=== PATIENT | male | born 1950 | race Caucasian/White ===

== ENCOUNTER → 2016-12-13 | Outpatient (CLI) | payer MEDICARE, BC, OTHER ==
[2016-12-13 12:51] LABS: HEMATOCRIT 36.5 % (37.9-51.0); HEMOGLOBIN 12.1 g/dL (13.5-17.0); HGB HCT DIFFERENCE -0.2; MEAN CORPUSCULAR HEMOGLOBIN 33.8 pg (27.0-33.4); MEAN CORPUSCULAR HGB CONC 33.3 g/dL (32.0-36.0); MEAN CORPUSCULAR VOLUME 102 fl (80-97); RED CELL DISTRIBUTION WIDTH 14.2 % (11.5-14.0); WHITE BLOOD COUNT 7.4 10^3/uL (4.0-10.5)
[2016-12-13 12:59] LABS: APPEARANCE,URINE CLEAR; BILIRUBIN,URINE NEGATIVE (NEGATIVE); GLUCOSE, URINE NEGATIVE (NEGATIVE); KETONES,URINE NEGATIVE (NEGATIVE); LEUKOCYTE ESTERASE,URINE NEGATIVE (NEGATIVE); NITRITE,URINE NEGATIVE (NEGATIVE); PROTEIN,URINE 100 mg/dL (NEGATIVE); URINE SPECIFIC GRAVITY 1.008; UROBILINOGEN,URINE NEGATIVE mg/dL (<2.0)
[2016-12-13 13:08] LABS: ANION GAP 13 (5-19); BLOOD UREA NITROGEN 52 mg/dL (7-20); CALCIUM 7.7 mg/dL (8.4-10.2); CARBON DIOXIDE 22 mmol/L (22-30); CHLORIDE 104 mmol/L (98-107); GLUCOSE 106 mg/dL (75-110); POTASSIUM 4.5 mmol/L (3.6-5.0); SODIUM 138.9 mmol/L (137-145)
== END ==
LOC: OD 11:24
PROVIDERS: ATTEND Internal Medicine Nephrology
DX: E11.22 Type 2 diabetes mellitus with diabetic chronic kidney disease (principal); I12.9 Hypertensive chronic kidney disease with stage 1 through stage 4 chronic kidney disease, or unspecified chronic kidney disease; N18.4 Chronic kidney disease, stage 4 (severe); E87.5 Hyperkalemia; R80.9 Proteinuria, unspecified
CPT/HCPCS: 36415; 80048; 81001; 85027

== ENCOUNTER → 2017-04-02 | Outpatient (CLI) | payer MEDICARE, BC, OTHER ==
[2017-04-02 11:08] LABS: ABSOLUTE BASOPHILS # (AUTO) 0.1 10^3/uL (0.0-0.2); ABSOLUTE EOSINOPHILS # (AUTO) 0.3 10^3/uL (0.0-0.6); ABSOLUTE LYMPHOCYTES (AUTO) 1.1 10^3/uL (0.5-4.7); ABSOLUTE MONOCYTES (AUTO) 0.8 10^3/uL (0.1-1.4); ABSOLUTE NEUT (AUTO) 4.4 10^3/uL (1.7-8.2); BASOPHILS % (AUTO) 0.8 % (0-2); EOSINOPHILS % (AUTO) 4.6 % (0-6); HEMATOCRIT 37.6 % (37.9-51.0); HGB HCT DIFFERENCE 1.4; LYMPHOCYTES % (AUTO) 16.3 % (13-45); MEAN CORPUSCULAR HEMOGLOBIN 35.1 pg (27.0-33.4); MEAN CORPUSCULAR HGB CONC 34.5 g/dL (32.0-36.0); MEAN CORPUSCULAR VOLUME 102 fl (80-97); MONOCYTES % (AUTO) 11.4 % (3-13); RED CELL DISTRIBUTION WIDTH 14.4 % (11.5-14.0); SEGMENTED NEUTROPHILS % (AUTO) 66.9 % (42-78); WHITE BLOOD COUNT 6.6 10^3/uL (4.0-10.5)
[2017-04-02 11:28] LABS: ALANINE AMINOTRANSFERASE 31 U/L (21-72); ALBUMIN 3.7 g/dL (3.5-5.0); ALKALINE PHOSPHATASE 53 U/L (38-126); ANION GAP 9 (5-19); ASPARTATE AMINO TRANSFERASE 21 U/L (17-59); BILIRUBIN,DIRECT 0.4 mg/dL (0.0-0.4); BILIRUBIN,TOTAL 0.6 mg/dL (0.2-1.3); BLOOD UREA NITROGEN 61 mg/dL (7-20); CALCIUM 8.4 mg/dL (8.4-10.2); CARBON DIOXIDE 24 mmol/L (22-30); CHLORIDE 106 mmol/L (98-107); CHOLESTEROL 171.96 mg/dL (0-200); CREATININE RESULT 4.27 mg/dL (0.52-1.25); Direct HDL 54 mg/dL (>40); GLUCOSE 128 mg/dL (75-110); MAGNESIUM 2.4 mg/dL (1.6-2.3); POTASSIUM 5.2 mmol/L (3.6-5.0); SODIUM 139.1 mmol/L (137-145); TOTAL PROTEIN 6.6 g/dL (6.3-8.2); TRIGLYCERIDES 116 mg/dL (<150)
[2017-04-02 11:38] LABS: DIRECT LDL 85 mg/dL (<100)
== END ==
LOC: OD 10:12
PROVIDERS: ATTEND Internal Medicine
DX: E11.9 Type 2 diabetes mellitus without complications (principal); I12.9 Hypertensive chronic kidney disease with stage 1 through stage 4 chronic kidney disease, or unspecified chronic kidney disease; N18.4 Chronic kidney disease, stage 4 (severe); J44.9 Chronic obstructive pulmonary disease, unspecified; E78.5 Hyperlipidemia, unspecified
CPT/HCPCS: 36415; 80053; 80061; 82043; 83036; 83735; 84443; 85025

== ENCOUNTER → 2017-05-28 | Outpatient (CLI) | payer MEDICARE, BC, OTHER ==
[2017-05-28 11:19] LABS: HEMATOCRIT 37.6 % (37.9-51.0); HEMOGLOBIN 12.7 g/dL (13.5-17.0); HGB HCT DIFFERENCE 0.5; MEAN CORPUSCULAR HEMOGLOBIN 34.2 pg (27.0-33.4); MEAN CORPUSCULAR HGB CONC 33.9 g/dL (32.0-36.0); MEAN CORPUSCULAR VOLUME 101 fl (80-97); RED BLOOD COUNT 3.72 10^6/uL (4.35-5.55); RED CELL DISTRIBUTION WIDTH 13.3 % (11.5-14.0); WHITE BLOOD COUNT 6.9 10^3/uL (4.0-10.5)
[2017-05-28 11:26] LABS: APPEARANCE,URINE CLEAR; BILIRUBIN,URINE NEGATIVE (NEGATIVE); GLUCOSE, URINE 50 mg/dL (NEGATIVE); KETONES,URINE NEGATIVE (NEGATIVE); LEUKOCYTE ESTERASE,URINE NEGATIVE (NEGATIVE); NITRITE,URINE NEGATIVE (NEGATIVE); PROTEIN,URINE >=500 mg/dL (NEGATIVE); URINE SPECIFIC GRAVITY 1.008; UROBILINOGEN,URINE NEGATIVE mg/dL (<2.0)
[2017-05-28 11:41] LABS: ALBUMIN 3.5 g/dL (3.5-5.0); ANION GAP 11 (5-19); BLOOD UREA NITROGEN 44 mg/dL (7-20); CALCIUM 8.4 mg/dL (8.4-10.2); CARBON DIOXIDE 21 mmol/L (22-30); CHLORIDE 107 mmol/L (98-107); CREATININE RESULT 3.96 mg/dL (0.52-1.25); GLUCOSE 94 mg/dL (75-110); PHOSPHORUS 5.1 mg/dL (2.5-4.5); POTASSIUM 4.5 mmol/L (3.6-5.0); SODIUM 139.3 mmol/L (137-145)
[2017-05-28 12:12] LABS: URINE CREATININE 71.3 mg/dL (22-328)
[2017-05-28 12:35] LABS: URINE PROTEIN 501.8 mg/dL (<12)
== END ==
LOC: OD 10:26
PROVIDERS: ATTEND Internal Medicine Nephrology
DX: I12.9 Hypertensive chronic kidney disease with stage 1 through stage 4 chronic kidney disease, or unspecified chronic kidney disease (principal); N18.4 Chronic kidney disease, stage 4 (severe); E11.9 Type 2 diabetes mellitus without complications; E87.5 Hyperkalemia; R80.9 Proteinuria, unspecified
CPT/HCPCS: 36415; 80048; 81001; 82040; 82570; 83735; 83970; 84100; 84156; 85027

== ENCOUNTER → 2017-07-25 | Outpatient (CLI) | payer MEDICARE, BC, OTHER ==
[2017-07-26 11:35] LABS: ANION GAP 15 (5-19); BLOOD UREA NITROGEN 54 mg/dL (7-20); CALCIUM 8.1 mg/dL (8.4-10.2); CARBON DIOXIDE 21 mmol/L (22-30); CHLORIDE 104 mmol/L (98-107); CREATININE RESULT 4.33 mg/dL (0.52-1.25); GLUCOSE 114 mg/dL (75-110); POTASSIUM 5.4 mmol/L (3.6-5.0); SODIUM 139.5 mmol/L (137-145)
== END ==
LOC: OD 10:21
PROVIDERS: ATTEND Internal Medicine Nephrology
DX: N18.4 Chronic kidney disease, stage 4 (severe) (principal); E78.5 Hyperlipidemia, unspecified; R80.9 Proteinuria, unspecified
CPT/HCPCS: 36415; 80048

== ENCOUNTER → 2017-10-30 | Outpatient (CLI) | payer MEDICARE, BC, OTHER ==
[2017-10-30 11:01] LABS: HEMATOCRIT 35.2 % (37.9-51.0); HEMOGLOBIN 12.1 g/dL (13.5-17.0); HGB HCT DIFFERENCE 1.1; MEAN CORPUSCULAR HEMOGLOBIN 34.7 pg (27.0-33.4); MEAN CORPUSCULAR HGB CONC 34.3 g/dL (32.0-36.0); MEAN CORPUSCULAR VOLUME 101 fl (80-97); RED BLOOD COUNT 3.48 10^6/uL (4.35-5.55); RED CELL DISTRIBUTION WIDTH 13.7 % (11.5-14.0); WHITE BLOOD COUNT 6.5 10^3/uL (4.0-10.5)
[2017-10-30 11:20] LABS: ANION GAP 15 (5-19); BLOOD UREA NITROGEN 82 mg/dL (7-20); CALCIUM 9.2 mg/dL (8.4-10.2); CARBON DIOXIDE 20 mmol/L (22-30); CHLORIDE 105 mmol/L (98-107); CREATININE RESULT 5.54 mg/dL (0.52-1.25); GLUCOSE 96 mg/dL (75-110); POTASSIUM 4.8 mmol/L (3.6-5.0); SODIUM 139.5 mmol/L (137-145)
== END ==
LOC: OD 09:59
PROVIDERS: ATTEND Internal Medicine Nephrology
DX: E87.5 Hyperkalemia (principal); N18.4 Chronic kidney disease, stage 4 (severe); R80.9 Proteinuria, unspecified
CPT/HCPCS: 36415; 80048; 85027

== ENCOUNTER → 2017-12-01 | Outpatient (CLI) | payer MEDICARE, BC, OTHER ==
[2017-12-01 12:03] LABS: ABSOLUTE EOSINOPHILS # (AUTO) 0.2 10^3/uL (0.0-0.6); ABSOLUTE LYMPHOCYTES (AUTO) 0.6 10^3/uL (0.5-4.7); ABSOLUTE MONOCYTES (AUTO) 0.8 10^3/uL (0.1-1.4); ABSOLUTE NEUT (AUTO) 3.2 10^3/uL (1.7-8.2); BASOPHILS % (AUTO) 0.9 % (0-2); EOSINOPHILS % (AUTO) 3.6 % (0-6); HEMATOCRIT 34.6 % (37.9-51.0); HEMOGLOBIN 11.8 g/dL (13.5-17.0); LYMPHOCYTES % (AUTO) 13.2 % (13-45); MEAN CORPUSCULAR HEMOGLOBIN 34.1 pg (27.0-33.4); MEAN CORPUSCULAR HGB CONC 34.2 g/dL (32.0-36.0); MEAN CORPUSCULAR VOLUME 100 fl (80-97); PLATELET COUNT 189 10^3/uL (150-450); RED BLOOD COUNT 3.47 10^6/uL (4.35-5.55); RED CELL DISTRIBUTION WIDTH 13.7 % (11.5-14.0); SEGMENTED NEUTROPHILS % (AUTO) 66.3 % (42-78); TOTAL CELLS COUNTED % (AUTO) 100 %; WHITE BLOOD COUNT 4.8 10^3/uL (4.0-10.5)
[2017-12-01 12:08] LABS: APPEARANCE,URINE CLEAR; BILIRUBIN,URINE NEGATIVE (NEGATIVE); COLOR,URINE STRAW; GLUCOSE, URINE 50 mg/dL (NEGATIVE); KETONES,URINE NEGATIVE (NEGATIVE); LEUKOCYTE ESTERASE,URINE NEGATIVE (NEGATIVE); NITRITE,URINE NEGATIVE (NEGATIVE); PROTEIN,URINE >=500 mg/dL (NEGATIVE); URINE SPECIFIC GRAVITY 1.007; UROBILINOGEN,URINE NEGATIVE mg/dL (<2.0)
[2017-12-01 12:22] LABS: ALANINE AMINOTRANSFERASE 170 U/L (21-72); ALBUMIN 4.1 g/dL (3.5-5.0); ALKALINE PHOSPHATASE 84 U/L (38-126); ANION GAP 16 (5-19); ASPARTATE AMINO TRANSFERASE 142 U/L (17-59); BILIRUBIN,DIRECT 0.3 mg/dL (0.0-0.4); BILIRUBIN,TOTAL 0.5 mg/dL (0.2-1.3); BLOOD UREA NITROGEN 82 mg/dL (7-20); CALCIUM 8.7 mg/dL (8.4-10.2); CARBON DIOXIDE 20 mmol/L (22-30); CHLORIDE 103 mmol/L (98-107); GLUCOSE 94 mg/dL (75-110); PHOSPHORUS 6.3 mg/dL (2.5-4.5); POTASSIUM 4.6 mmol/L (3.6-5.0); SODIUM 138.7 mmol/L (137-145); TOTAL PROTEIN 6.9 g/dL (6.3-8.2)
== END ==
LOC: OD 11:24
PROVIDERS: ATTEND Internal Medicine Nephrology
DX: N18.4 Chronic kidney disease, stage 4 (severe) (principal); E87.5 Hyperkalemia; R80.9 Proteinuria, unspecified; E11.9 Type 2 diabetes mellitus without complications
CPT/HCPCS: 36415; 80053; 81001; 83970; 84100; 85025

== ENCOUNTER → 2017-12-29 | Outpatient (CLI) | payer MEDICARE, BC, OTHER ==
[2017-12-29 10:48] LABS: HEMOGLOBIN 11.4 g/dL (13.5-17.0); MEAN CORPUSCULAR HEMOGLOBIN 34.5 pg (27.0-33.4); MEAN CORPUSCULAR HGB CONC 34.5 g/dL (32.0-36.0); MEAN CORPUSCULAR VOLUME 100 fl (80-97); PLATELET COUNT 179 10^3/uL (150-450); RED CELL DISTRIBUTION WIDTH 13.8 % (11.5-14.0); WHITE BLOOD COUNT 5.9 10^3/uL (4.0-10.5)
[2017-12-29 10:55] LABS: APPEARANCE,URINE CLEAR; BILIRUBIN,URINE NEGATIVE (NEGATIVE); COLOR,URINE STRAW; GLUCOSE, URINE 50 mg/dL (NEGATIVE); KETONES,URINE NEGATIVE (NEGATIVE); LEUKOCYTE ESTERASE,URINE NEGATIVE (NEGATIVE); NITRITE,URINE NEGATIVE (NEGATIVE); PROTEIN,URINE 100 mg/dL (NEGATIVE); URINE SPECIFIC GRAVITY 1.009; UROBILINOGEN,URINE NEGATIVE mg/dL (<2.0)
[2017-12-29 11:13] LABS: ANION GAP 12 (5-19); BLOOD UREA NITROGEN 95 mg/dL (7-20); CALCIUM 9.5 mg/dL (8.4-10.2); CARBON DIOXIDE 20 mmol/L (22-30); CHLORIDE 103 mmol/L (98-107); GLUCOSE 105 mg/dL (75-110); PHOSPHORUS 5.4 mg/dL (2.5-4.5); POTASSIUM 4.7 mmol/L (3.6-5.0); SODIUM 134.8 mmol/L (137-145)
[2017-12-29 11:33] LABS: URINE CREATININE 62.4 mg/dL (22-328)
[2017-12-29 11:43] LABS: UR PRO/CREAT RATIO RESULT 3.9 mg/mg (0.0-0.2); URINE PROTEIN 242.8 mg/dL (<12)
== END ==
LOC: OD 10:12
PROVIDERS: ATTEND Physician Assistant Medical
DX: I12.0 Hypertensive chronic kidney disease with stage 5 chronic kidney disease or end stage renal disease (principal); N18.5 Chronic kidney disease, stage 5; E87.5 Hyperkalemia; R80.9 Proteinuria, unspecified; E11.9 Type 2 diabetes mellitus without complications
CPT/HCPCS: 36415; 80048; 81001; 82570; 83970; 84100; 84156; 85027

== ENCOUNTER → 2018-02-12 | Outpatient (CLI) | payer MEDICARE, BC, OTHER ==
[2018-02-12 12:05] LABS: APPEARANCE,URINE CLEAR; BILIRUBIN,URINE NEGATIVE (NEGATIVE); COLOR,URINE YELLOW; GLUCOSE, URINE 50 mg/dL (NEGATIVE); KETONES,URINE TRACE mg/dL (NEGATIVE); LEUKOCYTE ESTERASE,URINE NEGATIVE (NEGATIVE); NITRITE,URINE NEGATIVE (NEGATIVE); PROTEIN,URINE >=500 mg/dL (NEGATIVE); UROBILINOGEN,URINE NEGATIVE mg/dL (<2.0)
[2018-02-12 12:09] LABS: HEMATOCRIT 35.4 % (37.9-51.0); MEAN CORPUSCULAR HEMOGLOBIN 34.3 pg (27.0-33.4); MEAN CORPUSCULAR HGB CONC 33.9 g/dL (32.0-36.0); MEAN CORPUSCULAR VOLUME 101 fl (80-97); PLATELET COUNT 176 10^3/uL (150-450); RED CELL DISTRIBUTION WIDTH 14.2 % (11.5-14.0); WHITE BLOOD COUNT 6.4 10^3/uL (4.0-10.5)
[2018-02-12 12:22] LABS: ANION GAP 12 (5-19); BLOOD UREA NITROGEN 58 mg/dL (7-20); CALCIUM 9.1 mg/dL (8.4-10.2); CARBON DIOXIDE 21 mmol/L (22-30); CHLORIDE 106 mmol/L (98-107); GLUCOSE 75 mg/dL (75-110); POTASSIUM 4.6 mmol/L (3.6-5.0); SODIUM 139.2 mmol/L (137-145)
[2018-02-12 12:30] LABS: URINE CREATININE 77.6 mg/dL (22-328)
[2018-02-12 12:48] LABS: UR PRO/CREAT RATIO RESULT 6.4 mg/mg (0.0-0.2); URINE PROTEIN 497.7 mg/dL (<12)
== END ==
LOC: OD 11:02
PROVIDERS: ATTEND Physician Assistant Medical
DX: I12.0 Hypertensive chronic kidney disease with stage 5 chronic kidney disease or end stage renal disease (principal); N18.5 Chronic kidney disease, stage 5; E87.5 Hyperkalemia; E11.9 Type 2 diabetes mellitus without complications
CPT/HCPCS: 36415; 80048; 81001; 82570; 84156; 85027

== ENCOUNTER 2018-03-10 18:24 | Inpatient (IN) | payer MEDICARE, BC, OTHER ==
--- NOTE | 2018-03-10 18:53 | RADIOLOGY REPORT (SQ) ---
EXAM DESCRIPTION: CT HEAD WITHOUT COMPLETED DATE/TIME: 03/10/2018 6:36 pm REASON FOR STUDY: t2 stroke alert COMPARISON: None. TECHNIQUE: Axial images acquired through the brain without intravenous contrast. Images reviewed wi th bone, brain and subdural windows. Additional sagittal and coronal reconstructions were generated. Images stored on PACS. All CT scanners at this facility use dose modulation, iterative reconstruction, and/or weight based d osing when appropriate to reduce radiation dose to as low as reasonably achievable (ALARA). [facility]: Dose Right [facility]: CareDose [facility]: Dose Right [facility]: Teradose 4D [facility]: Touch Bionics RADIATION DOSE: mGy. LIMITATIONS: None. FINDINGS: VENTRICLES: Prominent. CEREBRUM: No masses. No hemorrhage. No midline shift. Areas of low density in the white matter mos t likely due to chronic micro-vascular ischemic change. No evidence for acute infarction. CEREBELLUM: No masses. No hemorrhage. No alteration of density. No evidence for acute infarction. EXTRAAXIAL SPACES: Age-related involutional change. No fluid collections. No masses. ORBITS AND GLOBE: There is a metallic density on the anterior surface of the right eye (axial image 1 3). No intra- or extraconal masses. Normal contour of globe without masses. CALVARIUM: No fracture. PARANASAL SINUSES: No fluid or mucosal thickening. SOFT TISSUES: No mass or hematoma. OTHER: No other significant finding. IMPRESSION: 1. CHRONIC CHANGES OF ATROPHY AND MICROVASCULAR ISCHEMIA. NO ACUTE PROCESS. 2. METALLIC DENSITY ON THE ANTERIOR SURFACE OF THE RIGHT EYE. RECOMMEND CLINICAL CORRELATION. IF MR I SCAN IS CONSIDERED, THEN THIS FINDING WILL NEED TO BE ADDRESSED A METALLIC BODY ON THE EYE WOULD BE A CONTRAINDICATION TO MRI SCANNING. EVIDENCE OF ACUTE STROKE: NO. COMMENT: Pertinent positive or negative findings of the imaging study reported as a CRITICAL EXAM lc florencio CROCKER at18:44 on 03/10/2018. Category of Critical Exam: Stroke protocol. TECHNICAL DOCUMENTATION: JOB ID: [id number] Quality ID # [id number]: Final reports with documentation of one or more dose reduction techniques (e.g., Au tomated exposure control, adjustment of the mA and/or kV according to patient size, use of iterative reconstruction technique) 2010 [employer]- All Rights Reserved Reading location - IP/workstation name: [email or web address]
--- NOTE | 2018-03-10 19:00 | RADIOLOGY REPORT (SQ) ---
EXAM DESCRIPTION: CHEST SINGLE VIEW COMPLETED DATE/TIME: 03/10/2018 6:40 pm REASON FOR STUDY: t2 stroke alert COMPARISON: 07/20/2014 and 06/04/2010. NUMBER OF VIEWS: One view. TECHNIQUE: Single frontal radiographic view of the chest acquired. LIMITATIONS: None. FINDINGS: LUNGS AND PLEURA: No opacities, masses or pneumothorax. No pleural effusion. Stable pleu ral thickening in the lateral right and left chest. This could be due to prominent pleural fat. MEDIASTINUM AND HILAR STRUCTURES: No masses. Contour normal. HEART AND VASCULAR STRUCTURES: Heart enlarged without failure. Normal vasculature. BONES: No acute findings. HARDWARE: None in the chest. OTHER: No other significant finding. IMPRESSION: HEART ENLARGED WITHOUT FAILURE. NO OTHER SIGNIFICANT RADIOGRAPHIC FINDING IN THE CHEST. TECHNICAL DOCUMENTATION: JOB ID: [id number] [employer]- All Rights Reserved Reading location - IP/workstation name: [email or web address]
[2018-03-10 19:05] LABS: ABSOLUTE BASOPHILS # (AUTO) 0.1 10^3/uL (0.0-0.2); ABSOLUTE EOSINOPHILS # (AUTO) 0.4 10^3/uL (0.0-0.6); ABSOLUTE LYMPHOCYTES (AUTO) 1.8 10^3/uL (0.5-4.7); ABSOLUTE MONOCYTES (AUTO) 1.2 10^3/uL (0.1-1.4); ABSOLUTE NEUT (AUTO) 5.2 10^3/uL (1.7-8.2); BASOPHILS % (AUTO) 1.4 % (0-2); EOSINOPHILS % (AUTO) 4.5 % (0-6); HEMATOCRIT 35.4 % (37.9-51.0); HEMOGLOBIN 12.2 g/dL (13.5-17.0); INTERNATIONAL RATION (INR) 0.95; LYMPHOCYTES % (AUTO) 20.8 % (13-45); MEAN CORPUSCULAR HEMOGLOBIN 34.1 pg (27.0-33.4); MEAN CORPUSCULAR HGB CONC 34.5 g/dL (32.0-36.0); MEAN CORPUSCULAR VOLUME 99 fl (80-97); MONOCYTES % (AUTO) 13.8 % (3-13); PLATELET COUNT 219 10^3/uL (150-450); PROTHROMBIN TIME 13.1 SEC (11.4-15.4); RED BLOOD COUNT 3.58 10^6/uL (4.35-5.55); RED CELL DISTRIBUTION WIDTH 13.5 % (11.5-14.0); SEGMENTED NEUTROPHILS % (AUTO) 59.5 % (42-78); TOTAL CELLS COUNTED % (AUTO) 100 %; WHITE BLOOD COUNT 8.8 10^3/uL (4.0-10.5)
[2018-03-10 19:06] LABS: PARTIAL THROMBOPLASTIN TIME 32.2 SEC (23.5-35.8)
[2018-03-10 19:20] LABS: ALANINE AMINOTRANSFERASE 41 U/L (21-72); ALBUMIN 4.3 g/dL (3.5-5.0); ALKALINE PHOSPHATASE 51 U/L (38-126); ASPARTATE AMINO TRANSFERASE 36 U/L (17-59); BILIRUBIN,DIRECT 0.2 mg/dL (0.0-0.4); BILIRUBIN,TOTAL 0.2 mg/dL (0.2-1.3); BLOOD UREA NITROGEN 92 mg/dL (7-20); CALCIUM 9.5 mg/dL (8.4-10.2); CREATINE KINASE 27 U/L (55-170); GLUCOSE 104 mg/dL (75-110); TOTAL PROTEIN 7.2 g/dL (6.3-8.2)
[2018-03-10 19:32] LABS: CREATINE KINASE MB 0.34 ng/mL (<4.55); TROPONIN I < 0.012 ng/mL
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
[2018-03-10 19:40] LABS: CARBON DIOXIDE 20 mmol/L (22-30); CHLORIDE 100 mmol/L (98-107); SODIUM 138.1 mmol/L (137-145)
[2018-03-10] MEDS ORDERED: ASPIRIN 81 MG TABLET, CHEWABLE PO ONE (19:42)
[2018-03-10 19:45] LABS: POTASSIUM 4.6 mmol/L (3.6-5.0)
[2018-03-10 19:46] LABS: ANION GAP 18 (5-19)
[2018-03-10] MEDS ORDERED: ACETAMINOPHEN 650 MG SUPP.RECT PR PRN (20:24)
[2018-03-10] MEDS ORDERED: 1/2 NORMAL SALINE 1,000 ML IV PRN (20:24)
[2018-03-10] MEDS ORDERED: ONDANSETRON HCL INJ/PF 4 MG/2 ML SDV IV PRN (20:24)
[2018-03-10] MEDS ORDERED: DEXTROSE 50%-WATER 25 GM/50 ML DISP.SYRIN IV PRN ×2 (20:31)
[2018-03-10] MEDS ORDERED: GLUCAGON,HUMAN RECOMB 1 MG INJ IM PRN (20:31)
[2018-03-10] MEDS ORDERED: INSULIN LISPRO 100 UNIT/ML 3 ML VIAL SUBCUT PRN (20:31)
[2018-03-10] MEDS ORDERED: DEXTROSE 40% GEL 15 GM TUBE PO PRN ×2 (20:31)
--- NOTE | 2018-03-10 21:38 | EKG REPORT ---
SEVERITY:- ABNORMAL ECG - SINUS RHYTHM NONSPECIFIC INTRAVENTRICULAR CONDUCTION DELAY LOW VOLTAGE IN FRONTAL LEADS : Confirmed by: Ruddy Gaona 10-Mar-2018 21:36:53
[2018-03-10] MEDS ORDERED: ATORVASTATIN CALCIUM 40 MG TABLET PO SCH ×2 (22:00)
[2018-03-10] MEDS: HEPARIN SOD (PORCINE) 5,000 UNIT/ML 1 ML SYRINGE SUBCUT SCH (23:04)
[2018-03-10] MEDS: CLONIDINE HCL 0.1 MG TABLET PO SCH (23:05)
[2018-03-10] MEDS: ATORVASTATIN CALCIUM 80 MG TABLET PO SCH (23:05)
--- NOTE | 2018-03-11 00:17 | PDOC H&P ---
History of Present Illness Admission Date/PCP: GEMINI MELENDEZ, Patient complains of: Confusion, dysarthria and right-sided weakness for unknown duration. History of Present Illness: APURVA ELLSWORTH is a 67 year old male morbidly obese with history of type 2 diabetes mellitus (currently diet-controlled), hypertension, chronic kidney disease stage V (post AV fistula in 2017 but not yet on dialysis), COPD (on 4 L home oxygen as needed) and obstructive sleep apnea (on CPAP and 4 L oxygen) was admitted with above-mentioned complaints. The patient apparently has some memory lapses sometimes so most of the history was obtained from his at bedside. According to his , the patient was reportedly at his baseline around 4 PM when he was visiting his neighbor. 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 When she got home, the patient seemed to be somewhat confused. He did not seem to be able to process what she was asking him, and she noticed that he was slurring his speech. She asked him if he checked his blood sugar and he told her that it was 121. He thought that his phone was in his car but it turned out that it was actually in his pocket but he didn't hear it ring. The patient apparently was not supposed to be driving since he was hospitalized for an infected AV fistula in his right forearm about a week and a half ago until he follows up with his vascular surgeon in [place]. He said that he takes 325 mg aspirin daily. The patient denied any loss of consciousness, dizziness/lightheadedness or any vertigo, blurred vision, dysphagia or any focal weakness or numbness. There was also no report of any seizure activity or postictal state or any incontinence. He also denied any fever, chills, nausea vomiting, chest pain or shortness of breath or any abdominal pain, diarrhea or constipation or urinary symptoms. He is usually able to ambulate short distances independently. He has known peripheral neuropathy and an unsteady gait per his . In the ED, his temperature was not recorded, heart rate 63, respiratory rate 20 , blood pressure 156/65 with oxygen saturation 98% on 2 L nasal cannula. His WBC was 8.8 with hemoglobin of 12.2. His initial troponin was less than 0.012. A head CAT scan was done which did not show any acute findings. He received 325 mg aspirin 1. Past Medical History Medical History: Other - According to his and based on previous records. Cardiac Medical History: Reports: Congestive Heart Failure, Myocardial Infarction - 1991, Hyperlipidema, Hypertension, Peripheral Vascular Disease - bilateral carotid endarterectomy. Pulmonary Medical History: Reports: Chronic Obstructive Pulmonary Disease (COPD ) - on 4L oxygen as needed., Sleep Apnea - on CPAP and 4 L home oxygen. Endocrine Medical History: Reports: Diabetes Mellitus Type 2 - diet controlled. Renal/ Medical History: Reports: Chronic Kidney Disease, Other - stage V, not on dialysis yet. Psychiatric Medical History: Denies: Depression Past Surgical History Past Surgical History: Reports: Cardiac Catheterization - 1991 AND 2001, Orthopedic Surgery - left 5th toe amputation due to infection., Vascular Surgery - AV fistula in 2017. B/L carotid endarterectomy., Other - right eye stent placed (since glaucoma). Social History Smoking Status: Former Smoker Cigarettes Packs Per Day: 0 - He used to smoke more than a pack a day for 30 years. He quit in 1991. Frequency of Alcohol Use: Occasional - He drinks 1 glass of wine about every night for many years. Occasional beer when he goes out. Hx Recreational Drug Use: No Hx Prescription Drug Abuse: No - Advance Directive Resuscitation Status: Full Code Family History Parental Family History Reviewed: Yes - Father: alcoholic; maternal grandmother : Diabetes; Brother: CVA Children Family History Reviewed: No Sibling(s) Family History Reviewed.: Yes Medication/Allergy Home Medications: Amlodipine Besylate [Norvasc 10 mg Tablet] 10 mg PO [facility] 03/10/18 Aspirin [Aspirin 325 mg Tablet] 325 mg PO DAILY@199903/10/18 Atorvastatin Calcium [Lipitor 40 mg Tablet] 40 mg PO DAILY@199903/10/18 Calcitriol [Rocaltrol 0.25 mcg Capsule] 0.25 mcg PO MOWEFR 03/10/18 Clonidine HCl [Catapres 0.1 mg Tablet] 0.1 mg PO Q8@0800,1200,199903/10/18 Cyanocobalamin (Vitamin B-12) [Vitamin B-12 1000 mcg Tablet] 1,000 mg PO DAILY@ 199903/10/18 Ergocalciferol (Vitamin D2) [Drisdol 50,000 unit (1.25MG) Capsule] 50,000 unit PO MO 03/10/18 Febuxostat [Uloric 40 mg Tablet] 40 mg PO QAM 03/10/18 Furosemide [Lasix 40 mg Tablet] 40 mg PO QAM 03/10/18 Hydralazine HCl [Apresoline 25 mg Tablet] 25 mg PO BID@0800,2000 03/10/18 Metoprolol Succinate [Toprol Xl 50 mg Tab.sr] 50 mg PO QAM 03/10/18 Nitroglycerin [Nitrostat 0.4 mg (1/150 Gr) Tabs 25/Bottle] 0.4 mg SL Q5MP PRN Sildenafil Citrate [Viagra] 100 mg PO .ASDIR 03/10/18 Allergies/Adverse Reactions: strawberry [[place]] Allergy (Verified 07/20/14 23:49) Review of Systems ROS unobtainable: Other - Pertinent positives and negatives as detailed in the HPI. Physical Exam Vital Signs: Temp Pulse Resp BP Pulse Ox 59 L 22 H 144/63 H 95 03/10/18 20:14 03/10/18 20:16 03/10/18 20:16 03/10/18 20:16 General appearance: PRESENT: no acute distress, obese, well-developed, well- nourished Head exam: PRESENT: atraumatic, normocephalic Eye exam: PRESENT: EOMI, PERRLA. ABSENT: nystagmus, scleral icterus Mouth exam: PRESENT: moist, neck supple, other - short Neck exam: PRESENT: full ROM. ABSENT: carotid bruit Respiratory exam: PRESENT: decreased breath sounds. ABSENT: rales, rhonchi, wheezes Cardiovascular exam: PRESENT: RRR, +S1, +S2 Pulses: PRESENT: normal dorsalis pedis pul GI/Abdominal exam: PRESENT: normal bowel sounds, soft. ABSENT: distended, guarding, tenderness Rectal exam: PRESENT: deferred Extremities exam: PRESENT: +1 edema Musculoskeletal exam: PRESENT: full ROM Neurological exam: PRESENT: alert, altered, awake, oriented to person, oriented to place, oriented to time, oriented to situation, motor sensory deficit - slight right arm pronator drift. Motor 4/5 throughout. Chronic sensory deficit in both feet up to midshin. No Babinski or clonus, gait was not assessed.. ABSENT: CN II-XII grossly intact - except CNVIII was not assessed. Psychiatric exam: PRESENT: appropriate affect Skin exam: PRESENT: dry, warm. ABSENT: erythema, rash Results Laboratory Results: 03/10/18 18:45 03/10/18 18:45 03/10/18 03/10/18 18:45 18:45 WBC 8.8 RBC 3.58 L Hgb 12.2 L Hct 35.4 L MCV 99 H MCH 34.1 H MCHC 34.5 RDW 13.5 Plt Count 219 Seg Neutrophils % 59.5 Lymphocytes % 20.8 Monocytes % 13.8 H Eosinophils % 4.5 Basophils % 1.4 Absolute Neutrophils 5.2 Absolute Lymphocytes 1.8 Absolute Monocytes 1.2 Absolute Eosinophils 0.4 Absolute Basophils 0.1 Sodium 138.1 Potassium 4.6 Chloride 100 Carbon Dioxide 20 L Anion Gap 18 BUN 92 H Creatinine 5.45 H Est GFR ( Amer) 13 L Est GFR (Non-Af Amer) 10 L Glucose 104 Calcium 9.5 Total Bilirubin 0.2 AST 36 ALT 41 Alkaline Phosphatase 51 Total Protein 7.2 Albumin 4.3 03/10/18 03/10/18 18:45 18:45 Creatine Kinase 27 L CK-MB (CK-2) 0.34 Troponin I < 0.012 EKG Comments: Lead EKG, sinus rhythm, ventricular rate 85, axis +45, low voltage, poor R-wave propagation no other changes. Similar when compared to a previous twelve-lead EKG done on 07/21/2014. Impressions: Chest X-Ray 03/10/18 18:29 IMPRESSION: HEART ENLARGED WITHOUT FAILURE. NO OTHER SIGNIFICANT RADIOGRAPHIC FINDING IN THE CHEST. Head CT 03/10/18 18:29 IMPRESSION: 1. CHRONIC CHANGES OF ATROPHY AND MICROVASCULAR ISCHEMIA. NO ACUTE PROCESS. 2. METALLIC DENSITY ON THE ANTERIOR SURFACE OF THE RIGHT EYE. RECOMMEND CLINICAL CORRELATION. IF MRI SCAN IS CONSIDERED, THEN THIS FINDING WILL NEED TO BE ADDRESSED A METALLIC BODY ON THE EYE WOULD BE A CONTRAINDICATION TO MRI SCANNING. EVIDENCE OF ACUTE STROKE: NO. Assessment & Plan - Diagnosis (1) TIA (transient ischemic attack) Is this a current diagnosis for this admission?: Yes Plan: Given improving neurological deficits. He is not a candidate for TPA since unknown onset of symptoms and his NIHSS is 1. His head CAT scan did not show any acute findings. Unable to get an MRI/MRA of his head given that he has a metallic stent in his right eye and neither him nor his are sure it is compatible with MRI. Unable to obtain a CAT scan angiogram either given advanced kidney disease. Will check carotid Dopplers, echocardiogram, fasting lipid profile and HbA1c. He may need repeat head CT scan in 48 hours. Will resume 325 mg aspirin daily and increase his Lipitor dose from 40 to 80 mg daily. ? adding Plavix. (2) NITA (acute kidney injury) Is this a current diagnosis for this admission?: Yes Plan: on chronic kidney disaese, stage V, post AV fistula in right forearm. He is not on dialysis yet. His most recent BUN/creatinine on 02/12/2018 was 58/4.26. Of note, his "memory problems" could be due to azotemia. Holding Lasix. The patient is currently back to baseline. (3) Essential hypertension Is this a current diagnosis for this admission?: Yes Plan: Will resume some of his BP home medications and continue to monitor. 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 According to his , the patient used to be on oral hypoglycemic medications but currently he is only diet-controlled. Will start Humalog sliding scale while in-house. (5) Obstructive sleep apnea Is this a current diagnosis for this admission?: No Plan: The patient may use his own CPAP machine in addition to 4 L oxygen. - Time Time Spent: Greater than 70 Minutes - Inpatient Certification Based on my medical assessment, after consideration of the patient's comorbidities, presenting symptoms, or acuity I expect that the services needed warrant INPATIENT care.: Yes I certify that my determination is in accordance with my understanding of Medicare's requirements for reasonable and necessary INPATIENT services [42 CFR 412.3e].: Yes
[2018-03-11] MEDS: CLONIDINE HCL 0.1 MG TABLET PO SCH ×3 (05:30→21:51)
[2018-03-11] MEDS: HEPARIN SOD (PORCINE) 5,000 UNIT/ML 1 ML SYRINGE SUBCUT SCH ×3 (05:32→21:50)
[2018-03-11 06:52] LABS: ABSOLUTE BASOPHILS # (AUTO) 0.1 10^3/uL (0.0-0.2); ABSOLUTE EOSINOPHILS # (AUTO) 0.3 10^3/uL (0.0-0.6); ABSOLUTE LYMPHOCYTES (AUTO) 1.5 10^3/uL (0.5-4.7); ABSOLUTE MONOCYTES (AUTO) 0.8 10^3/uL (0.1-1.4); ABSOLUTE NEUT (AUTO) 3.8 10^3/uL (1.7-8.2); EOSINOPHILS % (AUTO) 4.7 % (0-6); HEMATOCRIT 31.1 % (37.9-51.0); HEMOGLOBIN 10.8 g/dL (13.5-17.0); LYMPHOCYTES % (AUTO) 23.7 % (13-45); MEAN CORPUSCULAR HEMOGLOBIN 34.3 pg (27.0-33.4); MEAN CORPUSCULAR HGB CONC 34.6 g/dL (32.0-36.0); MEAN CORPUSCULAR VOLUME 99 fl (80-97); MONOCYTES % (AUTO) 12.5 % (3-13); PLATELET COUNT 184 10^3/uL (150-450); RED BLOOD COUNT 3.15 10^6/uL (4.35-5.55); RED CELL DISTRIBUTION WIDTH 13.7 % (11.5-14.0); SEGMENTED NEUTROPHILS % (AUTO) 58.1 % (42-78); TOTAL CELLS COUNTED % (AUTO) 100 %; WHITE BLOOD COUNT 6.5 10^3/uL (4.0-10.5)
[2018-03-11 07:05] LABS: ALANINE AMINOTRANSFERASE 40 U/L (21-72); ALBUMIN 3.6 g/dL (3.5-5.0); ALKALINE PHOSPHATASE 44 U/L (38-126); ANION GAP 16 (5-19); ASPARTATE AMINO TRANSFERASE 30 U/L (17-59); BILIRUBIN,DIRECT 0.2 mg/dL (0.0-0.4); BILIRUBIN,TOTAL 0.2 mg/dL (0.2-1.3); BLOOD UREA NITROGEN 91 mg/dL (7-20); CALCIUM 8.9 mg/dL (8.4-10.2); CARBON DIOXIDE 20 mmol/L (22-30); CHLORIDE 104 mmol/L (98-107); GLUCOSE 67 mg/dL (75-110); POTASSIUM 4.7 mmol/L (3.6-5.0); SODIUM 139.5 mmol/L (137-145); TOTAL PROTEIN 5.9 g/dL (6.3-8.2); TRIGLYCERIDES 169 mg/dL (<150)
[2018-03-11 07:16] LABS: DIRECT LDL 37 mg/dL (<100)
[2018-03-11 07:20] LABS: VLDL CHOLESTEROL 33.8 mg/dL (10-31)
--- NOTE | 2018-03-11 08:29 | PDOC PROGRESS REPORT ---
Subjective Progress Note for:: 03/11/18 Subjective:: The patient states to feel much better. He denies any further confusion or disorientation. He does answer appropriately to all the questions. Reason For Visit: ACUTE CVA Physical Exam Vital Signs: Temp Pulse Resp BP Pulse Ox 97.4 F 55 L 16 163/64 H 100 03/11/18 07:54 03/11/18 07:54 03/11/18 07:54 03/11/18 07:54 03/11/18 07:54 Intake & Output 03/10/18 03/11/18 03/12/18 06:59 06:59 06:59 Intake Total 325 Output Total 800 Balance -475 Weight 122.7 kg General appearance: PRESENT: mild distress Head exam: PRESENT: atraumatic Eye exam: PRESENT: conjunctiva pink Neck exam: PRESENT: carotid bruit. ABSENT: JVD Respiratory exam: PRESENT: rhonchi. ABSENT: wheezes Cardiovascular exam: PRESENT: +S1, +S2 Pulses: PRESENT: +1 pedal pulses bilateral Additional comments: Left arm fistula in place healing well Vascular exam: PRESENT: other GI/Abdominal exam: PRESENT: normal bowel sounds, soft Extremities exam: PRESENT: full ROM Musculoskeletal exam: PRESENT: ambulatory Neurological exam: PRESENT: awake, oriented to person, oriented to place, oriented to time, CN II-XII grossly intact. ABSENT: motor sensory deficit Results Laboratory Results: 03/11/18 05:41 03/11/18 05:41 03/11/18 03/11/18 05:41 05:41 WBC 6.5 RBC 3.15 L Hgb 10.8 L Hct 31.1 L MCV 99 H MCH 34.3 H MCHC 34.6 RDW 13.7 Plt Count 184 Seg Neutrophils % 58.1 Lymphocytes % 23.7 Monocytes % 12.5 Eosinophils % 4.7 Basophils % 1.0 Absolute Neutrophils 3.8 Absolute Lymphocytes 1.5 Absolute Monocytes 0.8 Absolute Eosinophils 0.3 Absolute Basophils 0.1 Sodium 139.5 Potassium 4.7 Chloride 104 Carbon Dioxide 20 L Anion Gap 16 BUN 91 H Creatinine 5.13 H Est GFR ( Amer) 14 L Est GFR (Non-Af Amer) 11 L Glucose 67 L Calcium 8.9 Total Bilirubin 0.2 AST 30 ALT 40 Alkaline Phosphatase 44 Total Protein 5.9 L Albumin 3.6 Triglycerides 169 H Cholesterol 113.50 LDL Cholesterol Direct 37 VLDL Cholesterol 33.8 H HDL Cholesterol 45 Impressions: Chest X-Ray 03/10/18 18:29 IMPRESSION: HEART ENLARGED WITHOUT FAILURE. NO OTHER SIGNIFICANT RADIOGRAPHIC FINDING IN THE CHEST. Head CT 03/10/18 18:29 IMPRESSION: 1. CHRONIC CHANGES OF ATROPHY AND MICROVASCULAR ISCHEMIA. NO ACUTE PROCESS. 2. METALLIC DENSITY ON THE ANTERIOR SURFACE OF THE RIGHT EYE. RECOMMEND CLINICAL CORRELATION. IF MRI SCAN IS CONSIDERED, THEN THIS FINDING WILL NEED TO BE ADDRESSED A METALLIC BODY ON THE EYE WOULD BE A CONTRAINDICATION TO MRI SCANNING. EVIDENCE OF ACUTE STROKE: NO. Assessment & Plan - Diagnosis (1) CKD (chronic kidney disease), stage V Is this a current diagnosis for this admission?: Yes Plan: Left arm fistula in place (2) Essential hypertension Is this a current diagnosis for this admission?: Yes Plan: We will continue with antihypertensives (3) Obstructive sleep apnea Is this a current diagnosis for this admission?: Yes Plan: Continue CPAP (4) TIA (transient ischemic attack) Qualifiers: Transient cerebral ischemia type: unspecified Qualified Code(s): G45.9 - Transient cerebral ischemic attack, unspecified Is this a current diagnosis for this admission?: Yes Plan: We will continue with aspirin and will consider doing an MRI if the eye stent is compatible. Will discuss with Dr. 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
[2018-03-11] MEDS ORDERED: AMLODIPINE BESYLATE 10 MG TABLET PO SCH (10:00)
[2018-03-11] MEDS ORDERED: METOPROLOL SUCCINATE 50 MG TAB.SR.24H PO SCH (10:00)
[2018-03-11] MEDS ORDERED: FEBUXOSTAT 80 MG TABLET PO SCH ×2 (10:00)
[2018-03-11] MEDS ORDERED: AMLODIPINE BESYLATE 5 MG TABLET PO SCH (10:00)
[2018-03-11] MEDS ORDERED: ASPIRIN 325 MG TABLET, ENT COATED PO SCH (10:00)
[2018-03-11] MEDS: ATORVASTATIN CALCIUM 80 MG TABLET PO SCH (21:50)
--- NOTE | 2018-03-12 02:07 | Physician Advisory Note ---
Physician Advisor ProgressNote .: Pursuant to the plan for [facility], I have reviewed the medical record for this patient. Physician Advisor Statement: Please consider documenting, if you agree: 1. "chronic hypoxemic respiratory failure, requiring __L O2 at baseline" 2. "obesity w/BMI 42.4" Thanks! CK
[2018-03-12] MEDS: HEPARIN SOD (PORCINE) 5,000 UNIT/ML 1 ML SYRINGE SUBCUT SCH ×2 (06:38→14:27)
[2018-03-12] MEDS: CLONIDINE HCL 0.1 MG TABLET PO SCH (06:38)
[2018-03-12] MEDS ORDERED: NITROGLYCERIN 0.4 MG/TAB 25 TAB/BOTTLE SL PRN (08:31)
[2018-03-12] MEDS ORDERED: (PENDING PHARMACY ID) (Sildenafil Citrate [Viagra] 100 MG) PO SCH (08:45)
--- NOTE | 2018-03-12 09:27 | RADIOLOGY REPORT (SQ) ---
EXAM DESCRIPTION: CT HEAD WITHOUT COMPLETED DATE/TIME: 03/12/2018 9:16 am REASON FOR STUDY: follow-up on acute CVA/ TIA COMPARISON: 03/10/2018 TECHNIQUE: Axial images acquired through the brain without intravenous contrast. Images reviewed wi th bone, brain and subdural windows. Additional sagittal and coronal reconstructions were generated. Images stored on PACS. All CT scanners at this facility use dose modulation, iterative reconstruction, and/or weight based d osing when appropriate to reduce radiation dose to as low as reasonably achievable (ALARA). [facility]: Dose Right [facility]: CareDose [facility]: Dose Right [facility]: Teradose 4D [facility]: Live Calendars RADIATION DOSE: CT Rad equipment meets quality standard of care and radiation dose reduction techniq ues were employed. CTDIvol: 48.6 mGy. DLP: 929 mGy-cm.mGy. LIMITATIONS: None. FINDINGS: VENTRICLES: Prominent. CEREBRUM: No masses. No hemorrhage. No midline shift. Areas of low density in the white matter mos t likely due to chronic micro-vascular ischemic change. No evidence for acute infarction. CEREBELLUM: No masses. No hemorrhage. No alteration of density. No evidence for acute infarction. EXTRAAXIAL SPACES: Age-related involutional change. No fluid collections. No masses. ORBITS AND GLOBE: No intra- or extraconal masses. Normal contour of globe without masses. CALVARIUM: No fracture. PARANASAL SINUSES: No fluid or mucosal thickening. SOFT TISSUES: Previously described metal density in the anterior chamber of the right eye. OTHER: No other significant finding. IMPRESSION: CHRONIC CHANGES OF ATROPHY AND MICROVASCULAR ISCHEMIA. NO ACUTE PROCESS. EVIDENCE OF ACUTE STROKE: NO. TECHNICAL DOCUMENTATION: JOB ID: [id number] Quality ID # [id number]: Final reports with documentation of one or more dose reduction techniques (e.g., Au tomated exposure control, adjustment of the mA and/or kV according to patient size, use of iterative reconstruction technique) 2010 [employer]- All Rights Reserved Reading location - IP/workstation name: [email or web address]
[2018-03-12] MEDS ORDERED: FEBUXOSTAT 40 MG TABLET PO ONE (10:30)
[2018-03-12] MEDS ORDERED: METOPROLOL SUCCINATE 50 MG TAB.SR.24H PO ONE (10:30)
[2018-03-12] MEDS ORDERED: AMLODIPINE BESYLATE 10 MG TABLET PO ONE (10:30)
[2018-03-12] MEDS ORDERED: CLONIDINE HCL 0.1 MG TABLET PO SCH ×2 (12:00)
--- NOTE | 2018-03-12 13:03 | RADIOLOGY REPORT (SQ) ---
EXAM DESCRIPTION: CAROTID DOPPLER COMPLETED DATE/TIME: 03/12/2018 12:48 pm REASON FOR STUDY: TIA/CVA COMPARISON: None. TECHNIQUE: Grayscale ultrasound, Doppler velocity and spectra, and color Doppler images acquired of the extra-cranial carotid and vertebral arteries. Images stored on PACS. LIMITATIONS: None. FINDINGS: RIGHT CAROTID CCA Velocities: Within normal limits. ICA Velocities Peak systolic 1.09 m/s. End diastolic 0.22 m/s. Proximal ICA/CCA peak systolic ratio 1.4. Scattered heterogenous plaque. Turbulent flow at areas of previous endarterectomy. Elevated velocit y in the external carotid artery. LEFT CAROTID CCA Velocities: Within normal limits. ICA Velocities Peak systolic 1.9 m/s. End diastolic 0.39 m/s. Proximal ICA/CCA peak systolic ratio 2.3. Scattered heterogenous plaque. Turbulent flow at areas of previous endarterectomy. Elevated velocit y in the external carotid artery. VERTEBRAL ARTERIES: Antegrade flow. Normal waveforms. SUBCLAVIAN ARTERIES: No finding. OTHER: No other significant finding. IMPRESSION: BILATERAL PLAQUE. 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 NO HEMODYNAMIC [place] SIGNIFICANT STENOSIS OF THE RIGHT INTERNAL CAROTID ARTERY. THERE IS STENOSIS OF BOTH RIGHT AND LEFT EXTERNAL CAROTID ARTERIES. COMMENT: Quality ID #[id number]: Velocity criteria are extrapolated from the diameter data as defined by t he Society of Radiologists in Ultrasound Consensus Conference. Radiology 2003: 229; 340-346. TECHNICAL DOCUMENTATION: JOB ID: [id number] [employer]- All Rights Reserved Reading location - IP/workstation name: [email or web address]
--- NOTE | 2018-03-12 14:00 | PDOC DISCHARGE SUMMARY ---
General - Admit/Disc Date/PCP Admission Date/Primary Care Provider: 03/10/18 20:36 GEMINI MELENDEZ, Discharge Date: 03/12/18 - Discharge Diagnosis (1) CKD (chronic kidney disease), stage V Is this a current diagnosis for this admission?: Yes Summary: Continue current medications and follow-up with nephrology for consideration on dialysis. (2) Essential hypertension Is this a current diagnosis for this admission?: Yes Summary: Continue current treatment (3) Obstructive sleep apnea Is this a current diagnosis for this admission?: Yes Summary: Continue BiPAP/CPAP (4) TIA (transient ischemic attack) Is this a current diagnosis for this admission?: Yes Summary: Continue aspirin (5) Type 2 diabetes mellitus Is this a current diagnosis for this admission?: Yes Summary: Continue current medications (6) COPD (chronic obstructive pulmonary disease) Is this a current diagnosis for this admission?: Yes Summary: Continue current treatment (7) Chronic hypoxemic respiratory failure Is this a current diagnosis for this admission?: Yes (8) Obesity (BMI 30-39.9) Is this a current diagnosis for this admission?: Yes Summary: Diet and exercise (9) S/P carotid endarterectomy Is this a current diagnosis for this admission?: Yes - Additional Information Resuscitation Status: Full Code Discharge Diet: Diabetic Discharge Activity: Activity As Tolerated Home Medications: Amlodipine Besylate [Norvasc 10 mg Tablet] 10 mg PO 03/10/18 Aspirin [Aspirin 325 mg Tablet] 325 mg PO DAILY@199903/10/18 Atorvastatin Calcium [Lipitor 40 mg Tablet] 40 mg PO DAILY@199903/10/18 Calcitriol [Rocaltrol 0.25 mcg Capsule] 0.25 mcg PO MOWE03/10/18 Clonidine HCl [Catapres 0.1 mg Tablet] 0.1 mg PO Q8@0800,1200,199903/10/18 Cyanocobalamin (Vitamin B-12) [Vitamin B-12 1000 mcg Tablet] 1,000 mg PO DAILY@ 199903/10/18 Ergocalciferol (Vitamin D2) [Drisdol 50,000 unit (1.25MG) Capsule] 50,000 unit PO MO 03/10/18 Febuxostat [Uloric 40 mg Tablet] 40 mg PO [facility] 03/10/18 Furosemide [Lasix 40 mg Tablet] 40 mg PO [facility] 03/10/18 Hydralazine HCl [Apresoline 25 mg Tablet] 25 mg PO BID@0800,199903/10/18 Metoprolol Succinate [Toprol Xl 50 mg Tab.sr] 50 mg PO QAM 03/10/18 Nitroglycerin [Nitrostat 0.4 mg (1/150 Gr) Tabs 25/Bottle] 0.4 mg SL Q5MP PRN Sildenafil Citrate [Viagra] 100 mg PO .ASDIR 03/10/18 History of Present Illness History of Present Illness: APURVA ELLSWORTH is a 67 year old male Hospital Course Hospital Course: The patient did well after the hospitalization. He did not have any recurrence of confusion. His CT of the brain showed just chronic changes. Repeat CT scan of the head without contrast showed no significant change compared to the previous one. The patient was able to ambulate his mental status has remained stable.v Physical Exam Vital Signs: Temp Pulse Resp BP Pulse Ox 97.4 F 55 L 16 142/54 H 96 03/12/18 08:24 03/12/18 08:24 03/12/18 08:24 03/12/18 08:24 03/12/18 08:24 Intake & Output 03/11/18 03/12/18 03/13/18 06:59 06:59 06:59 Intake Total 325 2530 Output Total 800 1075 Balance -475 1455 Weight 122.7 kg 125.2 kg General appearance: PRESENT: no acute distress Head exam: PRESENT: atraumatic Eye exam: PRESENT: conjunctiva pink Neck exam: PRESENT: carotid bruit Respiratory exam: PRESENT: rhonchi. ABSENT: wheezes Cardiovascular exam: PRESENT: RRR, +S2 Pulses: PRESENT: +1 pedal pulses bilateral Vascular exam: PRESENT: normal capillary refill GI/Abdominal exam: PRESENT: normal bowel sounds, soft Extremities exam: PRESENT: full ROM Musculoskeletal exam: PRESENT: ambulatory Neurological exam: PRESENT: alert, awake, CN II-XII grossly intact Results Laboratory Results: 03/11/18 05:41 03/11/18 05:41 Impressions: Chest X-Ray 03/10/18 18:29 IMPRESSION: HEART ENLARGED WITHOUT FAILURE. NO OTHER SIGNIFICANT RADIOGRAPHIC FINDING IN THE CHEST. Carotid Doppler Study 03/12/18 00:00 IMPRESSION: BILATERAL PLAQUE. 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 NO HEMODYNAMICALLY SIGNIFICANT STENOSIS OF THE RIGHT INTERNAL CAROTID ARTERY. THERE IS STENOSIS OF BOTH RIGHT AND LEFT EXTERNAL CAROTID ARTERIES. Head CT 03/12/18 00:00 IMPRESSION: CHRONIC CHANGES OF ATROPHY AND MICROVASCULAR ISCHEMIA. NO ACUTE PROCESS. EVIDENCE OF ACUTE STROKE: NO. Qualifiers - * PATEINT BEING DISCHARGED WITH ANY OF THE FOLLOWING DIAGNOSIS?: No
[2018-03-12 15:51] VITALS: BP 139/63
--- NOTE | 2018-03-12 19:47 | XCELERA REPORT ---
[address] [address] Transthoracic Echocardiogram Report Name: APURVA ELLSWORTH Age: 67 yrs Gender: Male : 1950 Patient Status: Inpatient Patient Location: [address] [place] [address] Study Date: 03/12/2018 09:54 AM Height: 67 in Weight: 269 lb BSA: 2.3 m2 Procedure: A complete two-dimensional transthoracic echocardiogram was performed (2D, M-mode, spectral and color flow Doppler). The study was technically difficult with many images being suboptimal in quality. Reason For Study: TIA/CVA Ordering Physician: TIFFANY CALDERON Performed By: Geri Rivera Interpretation Summary The left ventricular ejection fraction is normal. There is mild concentric left ventricular hypertrophy. The left ventricle is grossly normal size. Doppler measurements suggest pseudonormalized left ventricular relaxation, which is associated with grade II/IV or mild to moderate diastolic dysfunction Not all wall segments were well visualized. Wall motion cannot be accurately commented on, but no definite regional wall motion abnormalities noted. The right ventricular systolic function is normal. The left atrium is mildly dilated. The right atrium is normal in size There is a trace to mild amount of mitral regurgitation There is no mitral valve stenosis. There is mild to moderate aortic stenosis There is a peak gradient of 35-40, mean 22 mm of Hg. No aortic regurgitation is present. There is a trace or physiologic amount of tricuspid regurgitation Tricuspid regurgitation jet envelope not well defined to measure RV systolic pressure accurately. The aortic root is not well visualized but is probably normal size. The inferior vena cava was not well visualized Minimal pericardial effusion. MMode/2D Measurements & Calculations RVDd: 2.3 cm LVIDd: 5.7 cmFS: 42.5 % Ao root diam: 2.8 cm IVSd: 1.4 cm LVIDs: 3.3 cmEDV(Teich): 157.5 ml LVPWd: 1.4 cmESV(Teich): 42.6 ml Ao root area: 6.2 cm2 EF(Teich): 72.9 % LVOT diam: 2.3 cm LVOT area: 4.0 cm2 Doppler Measurements & Calculations MV E max tabitha: MV dec slope: Ao V2 max: LV V1 max P.5 cm/sec 369.1 cm/sec2 289.0 cm/sec 6.4 mmHg MV A max tabitha: MV dec time: Ao max PG: LV V1 mean P.9 cm/sec 0.28 sec 33.5 mmHg 4.2 mmHg MV E/A: 0.96 Ao V2 mean: LV V1 max: 220.6 cm/sec 126.6 cm/sec Ao mean PG: LV V1 mean: 22.1 mmHg 95.1 cm/sec Ao V2 VTI: 93.2 cmLV V1 VTI: ROMMEL(I,D): 1.7 cm2 39.4 cm ROMMEL(V,D): 1.8 cm2 SV(LVOT): 158.6 ml PA V2 max: TR max tabitha: 71.8 cm/sec 261.0 cm/sec PA max P.1 mmHg TR max P.4 mmHg Left Ventricle The left ventricle is grossly normal size. There is mild concentric left ventricular hypertrophy. The left ventricular ejection fraction is normal. Doppler measurements suggest pseudonormalized left ventricular relaxation, which is associated with grade II/IV or mild to moderate diastolic dysfunction. Not all wall segments were well visualized. Wall motion cannot be accurately commented on, but no definite regional wall motion abnormalities noted. Right Ventricle Borderline right ventricular enlargement. There is normal right ventricular wall thickness. The right ventricular systolic function is normal. Atria The right atrium is normal in size. The left atrium is mildly dilated. Interarterial septum not well visualized and not well dopplered. Cannot comment on ASD/PFO presence. Mitral Valve The mitral valve is grossly normal. There is no mitral valve stenosis. There is a trace to mild amount of mitral regurgitation. Aortic Valve The aortic valve is not well visualized secondary to technical limitations. There is mild to moderate aortic stenosis. There is a peak gradient of 35- 40, mean 22 mm of Hg. No aortic regurgitation is present. Tricuspid Valve The tricuspid valve is not well visualized secondary to technical limitations. There is no tricuspid stenosis. There is a trace or physiologic amount of tricuspid regurgitation. Tricuspid regurgitation jet envelope not well defined to measure RV systolic pressure accurately. Pulmonic Valve The pulmonic valve is not well visualized. Great Vessels The aortic root is not well visualized but is probably normal size. The inferior vena cava was not well visualized. Effusions Minimal pericardial effusion. : TIFFANY CALDERON > Ruddy Gaona
[2018-03-12] MEDS ORDERED: ASPIRIN 325 MG TABLET PO SCH (20:00)
[2018-03-12] MEDS ORDERED: HYDRALAZINE HCL 25 MG TABLET PO SCH (20:00)
[2018-03-12] MEDS ORDERED: CYANOCOBALAMIN (VITAMIN B-12) 1,000 MCG TABLET PO SCH (20:00)
[2018-03-12] MEDS ORDERED: ATORVASTATIN CALCIUM 40 MG TABLET PO SCH (20:00)
[2018-03-13] MEDS ORDERED: CALCITRIOL 0.25 MCG CAPSULE PO SCH (08:00)
[2018-03-13] MEDS ORDERED: FUROSEMIDE 40 MG TABLET PO SCH (08:00)
[2018-03-13] MEDS ORDERED: AMLODIPINE BESYLATE 10 MG TABLET PO SCH (08:00)
[2018-03-13] MEDS ORDERED: METOPROLOL SUCCINATE 50 MG TAB.SR.24H PO SCH ×2 (08:00)
[2018-03-13] MEDS ORDERED: FEBUXOSTAT 40 MG TABLET PO SCH (08:00)
[2018-03-16] MEDS ORDERED: ERGOCALCIFEROL (VITAMIN D2) 50000 UNIT (1.25 MG) CAPSULE PO SCH (10:00)
== END 2018-03-12 16:28 | disposition home or self-care (01) | DRG 69 ==
LOC: ER 18:24 → EH 20:36 → 3S 03-11 00:22
PROVIDERS: ADMIT Internal Medicine Geriatric Medicine; ATTEND Internal Medicine Geriatric Medicine
DX: G45.9 Transient cerebral ischemic attack, unspecified (principal); I13.2 Hypertensive heart and chronic kidney disease with heart failure and with stage 5 chronic kidney disease, or end stage renal disease; N18.5 Chronic kidney disease, stage 5; J96.11 Chronic respiratory failure with hypoxia; Z68.41 Body mass index [BMI] 40.0-44.9, adult; N17.9 Acute kidney failure, unspecified; G47.33 Obstructive sleep apnea (adult) (pediatric); E11.22 Type 2 diabetes mellitus with diabetic chronic kidney disease; J44.9 Chronic obstructive pulmonary disease, unspecified; E66.01 Morbid (severe) obesity due to excess calories; I50.9 Heart failure, unspecified; I25.2 Old myocardial infarction; E78.00 Pure hypercholesterolemia, unspecified; E11.51 Type 2 diabetes mellitus with diabetic peripheral angiopathy without gangrene; M10.9 Gout, unspecified; D75.1 Secondary polycythemia; Z79.899 Other long term (current) drug therapy; Z99.81 Dependence on supplemental oxygen; Z89.422 Acquired absence of other left toe(s); Z87.891 Personal history of nicotine dependence; Z79.82 Long term (current) use of aspirin; Z91.018 Allergy to other foods; Z81.1 Family history of alcohol abuse and dependence; Z82.3 Family history of stroke; Z83.3 Family history of diabetes mellitus
CPT/HCPCS: 36415; 70450; 71045; 80053; 80061; 80307; 82550; 82553; 82962; 83036; 84484; 85025; 85610; 85730; 93005; 93010; 93306; 93880; 99285; G8978-GP; G8979-GP; G8980-GP; G8987-GO; G8988-GO; G8989-GO; J1644; J3490

== ENCOUNTER → 2018-04-15 | Outpatient (CLI) | payer MEDICARE, BC, OTHER ==
[2018-04-15 11:45] LABS: HEMATOCRIT 35.1 % (37.9-51.0); HEMOGLOBIN 11.8 g/dL (13.5-17.0); MEAN CORPUSCULAR HGB CONC 33.7 g/dL (32.0-36.0); MEAN CORPUSCULAR VOLUME 101 fl (80-97); PLATELET COUNT 182 10^3/uL (150-450); RED BLOOD COUNT 3.48 10^6/uL (4.35-5.55); RED CELL DISTRIBUTION WIDTH 14.4 % (11.5-14.0); WHITE BLOOD COUNT 6.9 10^3/uL (4.0-10.5)
[2018-04-15 11:50] LABS: APPEARANCE,URINE CLEAR; BILIRUBIN,URINE NEGATIVE (NEGATIVE); COLOR,URINE STRAW; GLUCOSE, URINE 50 mg/dL (NEGATIVE); KETONES,URINE NEGATIVE (NEGATIVE); LEUKOCYTE ESTERASE,URINE NEGATIVE (NEGATIVE); NITRITE,URINE NEGATIVE (NEGATIVE); PROTEIN,URINE 100 mg/dL (NEGATIVE); URINE SPECIFIC GRAVITY 1.009; UROBILINOGEN,URINE NEGATIVE mg/dL (<2.0)
[2018-04-15 12:20] LABS: ANION GAP 12 (5-19); BLOOD UREA NITROGEN 84 mg/dL (7-20); CARBON DIOXIDE 26 mmol/L (22-30); CHLORIDE 105 mmol/L (98-107); GLUCOSE 108 mg/dL (75-110); PHOSPHORUS 4.8 mg/dL (2.5-4.5); POTASSIUM 5.3 mmol/L (3.6-5.0); SODIUM 142.6 mmol/L (137-145)
== END ==
LOC: OD 10:26
PROVIDERS: ATTEND Physician Assistant Medical
DX: E11.22 Type 2 diabetes mellitus with diabetic chronic kidney disease (principal); I12.9 Hypertensive chronic kidney disease with stage 1 through stage 4 chronic kidney disease, or unspecified chronic kidney disease; N18.5 Chronic kidney disease, stage 5; E87.5 Hyperkalemia
CPT/HCPCS: 36415; 80048; 81001; 83970; 84100; 85027

== ENCOUNTER → 2018-06-12 | Outpatient (CLI) | payer MEDICARE, BC, OTHER ==
[2018-06-12 10:59] LABS: HEMOGLOBIN 10.8 g/dL (13.5-17.0); MEAN CORPUSCULAR HEMOGLOBIN 34.7 pg (27.0-33.4); MEAN CORPUSCULAR VOLUME 99 fl (80-97); PLATELET COUNT 197 10^3/uL (150-450); RED BLOOD COUNT 3.12 10^6/uL (4.35-5.55); RED CELL DISTRIBUTION WIDTH 13.8 % (11.5-14.0); WHITE BLOOD COUNT 6.8 10^3/uL (4.0-10.5)
[2018-06-12 11:06] LABS: APPEARANCE,URINE CLEAR; BILIRUBIN,URINE NEGATIVE (NEGATIVE); COLOR,URINE STRAW; GLUCOSE, URINE 50 mg/dL (NEGATIVE); KETONES,URINE NEGATIVE (NEGATIVE); LEUKOCYTE ESTERASE,URINE NEGATIVE (NEGATIVE); NITRITE,URINE NEGATIVE (NEGATIVE); PROTEIN,URINE 100 mg/dL (NEGATIVE); URINE SPECIFIC GRAVITY 1.009; UROBILINOGEN,URINE NEGATIVE mg/dL (<2.0)
[2018-06-12 11:22] LABS: ANION GAP 13 (5-19); BLOOD UREA NITROGEN 102 mg/dL (7-20); CALCIUM 8.8 mg/dL (8.4-10.2); CARBON DIOXIDE 23 mmol/L (22-30); CHLORIDE 104 mmol/L (98-107); GLUCOSE 89 mg/dL (75-110); POTASSIUM 5.1 mmol/L (3.6-5.0); SODIUM 139.5 mmol/L (137-145)
== END ==
LOC: OD 10:06
PROVIDERS: ATTEND Physician Assistant Medical
DX: I12.9 Hypertensive chronic kidney disease with stage 1 through stage 4 chronic kidney disease, or unspecified chronic kidney disease (principal); N18.3 Chronic kidney disease, stage 3 (moderate); E11.9 Type 2 diabetes mellitus without complications; E87.5 Hyperkalemia; M10.00 Idiopathic gout, unspecified site
CPT/HCPCS: 36415; 80048; 81001; 85027

== ENCOUNTER → 2018-07-08 | Outpatient (CLI) | payer MEDICARE, BC, OTHER ==
[2018-07-08 10:46] LABS: HEMOGLOBIN 10.7 g/dL (13.5-17.0); MEAN CORPUSCULAR HEMOGLOBIN 34.7 pg (27.0-33.4); MEAN CORPUSCULAR HGB CONC 34.4 g/dL (32.0-36.0); MEAN CORPUSCULAR VOLUME 101 fl (80-97); PLATELET COUNT 211 10^3/uL (150-450); RED BLOOD COUNT 3.08 10^6/uL (4.35-5.55); RED CELL DISTRIBUTION WIDTH 13.5 % (11.5-14.0); WHITE BLOOD COUNT 8.8 10^3/uL (4.0-10.5)
[2018-07-08 10:58] LABS: APPEARANCE,URINE CLEAR; BILIRUBIN,URINE NEGATIVE (NEGATIVE); COLOR,URINE STRAW; GLUCOSE, URINE 50 mg/dL (NEGATIVE); KETONES,URINE NEGATIVE (NEGATIVE); LEUKOCYTE ESTERASE,URINE NEGATIVE (NEGATIVE); NITRITE,URINE NEGATIVE (NEGATIVE); PROTEIN,URINE 100 mg/dL (NEGATIVE); UROBILINOGEN,URINE NEGATIVE mg/dL (<2.0)
[2018-07-08 11:06] LABS: ANION GAP 15 (5-19); BLOOD UREA NITROGEN 83 mg/dL (7-20); CALCIUM 8.6 mg/dL (8.4-10.2); CARBON DIOXIDE 20 mmol/L (22-30); CHLORIDE 105 mmol/L (98-107); GLUCOSE 94 mg/dL (75-110); IRON(TIBC) 68.9 ug/dL (49-181); PHOSPHORUS 5.9 mg/dL (2.5-4.5); POTASSIUM 5.1 mmol/L (3.6-5.0); SODIUM 139.5 mmol/L (137-145)
== END ==
LOC: OD 09:49
PROVIDERS: ATTEND Physician Assistant Medical
DX: E11.22 Type 2 diabetes mellitus with diabetic chronic kidney disease (principal); I12.9 Hypertensive chronic kidney disease with stage 1 through stage 4 chronic kidney disease, or unspecified chronic kidney disease; N18.5 Chronic kidney disease, stage 5; D64.9 Anemia, unspecified
CPT/HCPCS: 36415; 80048; 81001; 82728; 83540; 83550; 83970; 84100; 85027

== ENCOUNTER → 2018-09-02 | Outpatient (CLI) | payer MEDICARE, BC, OTHER ==
[2018-09-02 10:15] LABS: ABSOLUTE BASOPHILS # (AUTO) 0.1 10^3/uL (0.0-0.2); ABSOLUTE EOSINOPHILS # (AUTO) 0.2 10^3/uL (0.0-0.6); ABSOLUTE MONOCYTES (AUTO) 0.5 10^3/uL (0.1-1.4); ABSOLUTE NEUT (AUTO) 3.3 10^3/uL (1.7-8.2); BASOPHILS % (AUTO) 1.4 % (0-2); EOSINOPHILS % (AUTO) 3.2 % (0-6); HEMATOCRIT 30.4 % (37.9-51.0); HEMOGLOBIN 10.5 g/dL (13.5-17.0); LYMPHOCYTES % (AUTO) 19.1 % (13-45); MEAN CORPUSCULAR HEMOGLOBIN 34.2 pg (27.0-33.4); MEAN CORPUSCULAR HGB CONC 34.7 g/dL (32.0-36.0); MEAN CORPUSCULAR VOLUME 99 fl (80-97); MONOCYTES % (AUTO) 10.3 % (3-13); PLATELET COUNT 172 10^3/uL (150-450); RED BLOOD COUNT 3.08 10^6/uL (4.35-5.55); RED CELL DISTRIBUTION WIDTH 14.9 % (11.5-14.0); TOTAL CELLS COUNTED % (AUTO) 100 %
[2018-09-02 10:20] LABS: APPEARANCE,URINE CLEAR; BILIRUBIN,URINE NEGATIVE (NEGATIVE); COLOR,URINE YELLOW; GLUCOSE, URINE NEGATIVE (NEGATIVE); KETONES,URINE NEGATIVE (NEGATIVE); LEUKOCYTE ESTERASE,URINE NEGATIVE (NEGATIVE); NITRITE,URINE NEGATIVE (NEGATIVE); PROTEIN,URINE 100 mg/dL (NEGATIVE); UROBILINOGEN,URINE NEGATIVE mg/dL (<2.0)
[2018-09-02 10:26] LABS: URINE SPECIFIC GRAVITY 1.009
[2018-09-02 10:26] LABS: HEMATOCRIT 30.4 % (37.9-51.0); HEMOGLOBIN 10.5 g/dL (13.5-17.0); MEAN CORPUSCULAR HEMOGLOBIN 34.2 pg (27.0-33.4); MEAN CORPUSCULAR HGB CONC 34.7 g/dL (32.0-36.0); MEAN CORPUSCULAR VOLUME 99 fl (80-97); PLATELET COUNT 172 10^3/uL (150-450); RED BLOOD COUNT 3.08 10^6/uL (4.35-5.55); RED CELL DISTRIBUTION WIDTH 14.9 % (11.5-14.0)
[2018-09-02 10:40] LABS: ALANINE AMINOTRANSFERASE 24 U/L (21-72); ALBUMIN 3.8 g/dL (3.5-5.0); ALKALINE PHOSPHATASE 47 U/L (38-126); ANION GAP 14 (5-19); ASPARTATE AMINO TRANSFERASE 19 U/L (17-59); BILIRUBIN,DIRECT 0.3 mg/dL (0.0-0.4); BILIRUBIN,TOTAL 0.6 mg/dL (0.2-1.3); BLOOD UREA NITROGEN 100 mg/dL (7-20); CALCIUM 9.1 mg/dL (8.4-10.2); CARBON DIOXIDE 23 mmol/L (22-30); CHLORIDE 103 mmol/L (98-107); CHOLESTEROL 116.55 mg/dL (0-200); GLUCOSE 91 mg/dL (75-110); POTASSIUM 4.7 mmol/L (3.6-5.0); SODIUM 140.1 mmol/L (137-145); TOTAL PROTEIN 6.4 g/dL (6.3-8.2); TRIGLYCERIDES 81 mg/dL (<150)
[2018-09-02 10:51] LABS: DIRECT LDL 32 mg/dL (<100)
[2018-09-02 11:11] LABS: UR PRO/CREAT RATIO RESULT 1.5 mg/mg (0.0-0.2); URINE CREATININE 66.9 mg/dL (22-328); URINE PROTEIN 101.4 mg/dL (<12)
[2018-09-02 11:21] LABS: ANION GAP 14 (5-19); BLOOD UREA NITROGEN 100 mg/dL (7-20); CALCIUM 9.1 mg/dL (8.4-10.2); CARBON DIOXIDE 23 mmol/L (22-30); CHLORIDE 103 mmol/L (98-107); GLUCOSE 91 mg/dL (75-110); POTASSIUM 4.7 mmol/L (3.6-5.0); SODIUM 140.1 mmol/L (137-145)
== END ==
LOC: OD 09:31
PROVIDERS: ATTEND Physician Assistant Medical
DX: I12.0 Hypertensive chronic kidney disease with stage 5 chronic kidney disease or end stage renal disease (principal); N18.6 End stage renal disease; E11.22 Type 2 diabetes mellitus with diabetic chronic kidney disease; E78.5 Hyperlipidemia, unspecified; R35.1 Nocturia; D64.9 Anemia, unspecified
CPT/HCPCS: 36415; 80048; 80053; 80061; 81001; 82570; 83036; 83970; 84153; 84156; 84443; 85025; 85027

== ENCOUNTER → 2018-09-09 | Outpatient (CLI) | payer MEDICARE, BC, OTHER ==
[2018-09-09 11:40] LABS: ALBUMIN 3.9 g/dL (3.5-5.0); ANION GAP 13 (5-19); BLOOD UREA NITROGEN 95 mg/dL (7-20); CALCIUM 9.4 mg/dL (8.4-10.2); CARBON DIOXIDE 26 mmol/L (22-30); CHLORIDE 100 mmol/L (98-107); GLUCOSE 85 mg/dL (75-110); PHOSPHORUS 6.3 mg/dL (2.5-4.5); POTASSIUM 4.7 mmol/L (3.6-5.0); SODIUM 138.6 mmol/L (137-145)
== END ==
LOC: OD 09:58
PROVIDERS: ATTEND Internal Medicine Nephrology
DX: N18.5 Chronic kidney disease, stage 5 (principal)
CPT/HCPCS: 36415; 80069

== ENCOUNTER → 2018-10-06 | Outpatient (CLI) | payer MEDICARE, BC, OTHER ==
[2018-10-06 11:43] LABS: HEMATOCRIT 28.7 % (37.9-51.0); MEAN CORPUSCULAR HEMOGLOBIN 34.5 pg (27.0-33.4); MEAN CORPUSCULAR HGB CONC 34.8 g/dL (32.0-36.0); MEAN CORPUSCULAR VOLUME 99 fl (80-97); PLATELET COUNT 172 10^3/uL (150-450); RED CELL DISTRIBUTION WIDTH 14.9 % (11.5-14.0); WHITE BLOOD COUNT 5.5 10^3/uL (4.0-10.5)
[2018-10-06 12:04] LABS: ANION GAP 13 (5-19); BLOOD UREA NITROGEN 101 mg/dL (7-20); CARBON DIOXIDE 22 mmol/L (22-30); CHLORIDE 103 mmol/L (98-107); GLUCOSE 89 mg/dL (75-110); POTASSIUM 5.8 mmol/L (3.6-5.0); SODIUM 138.1 mmol/L (137-145)
== END ==
LOC: OD 10:37
PROVIDERS: ATTEND Physician Assistant Medical
DX: I12.0 Hypertensive chronic kidney disease with stage 5 chronic kidney disease or end stage renal disease (principal); E11.22 Type 2 diabetes mellitus with diabetic chronic kidney disease; N18.5 Chronic kidney disease, stage 5; D64.9 Anemia, unspecified; I12.9 Hypertensive chronic kidney disease with stage 1 through stage 4 chronic kidney disease, or unspecified chronic kidney disease
CPT/HCPCS: 36415; 80048; 85027

== ENCOUNTER → 2018-10-08 | Outpatient (CLI) | payer MEDICARE, BC, OTHER | LOC: OD 08:08 | PROVIDERS: ATTEND Internal Medicine Nephrology | DX: N18.5 Chronic kidney disease, stage 5 (principal); E87.5 Hyperkalemia | CPT/HCPCS: 36415; 84132 ==

== ENCOUNTER 2018-10-22 23:03 | Inpatient (IN) | payer MEDICARE, BC, OTHER ==
[2018-10-22] MEDS ORDERED: METHYLPREDNISOLONE INJ 125 MG/2 ML SDV IV ONE (23:09)
[2018-10-22] MEDS ORDERED: ALBUTEROL SULFATE 0.083% NEB 2.5 MG/3 ML AMPUL NEB ONE (23:11)
--- NOTE | 2018-10-22 23:11 | ER Document Report ---
ED General - General Stated Complaint: DIFFICULTY BREATHING Time Seen by Provider: 10/22/18 23:08 Notes: Patient is a pleasant 68-year-old male with a history of emphysema who presents via ambulance due to respiratory distress. He says over the last week he has had gradual worsening difficulty breathing that became much worse tonight. No chest pain. No fevers. He has had cough and wheezing at home. When paramedics arrived he was in distress with very poor air movement. They gave him breathing treatments which helped increase his air movement and then he could hear wheezing. No history of CHF. He does have history of chronic kidney disease and does have a fistula in the left arm but this is for case he needs future dialysis. He has not had to receive any dialysis as of yet. Patient says he is feeling improved after being placed on the BiPAP and receiving breathing treatments. He still has some difficulty breathing but much improved compared to when paramedics first arrived. No other complaints at this time. TRAVEL OUTSIDE OF THE [place] IN LAST 30 DAYS: No - Related Data Allergies/Adverse Reactions: strawberry [[place]] Allergy (Verified 07/20/14 23:49) Past Medical History - Social History Smoking Status: Former Smoker Frequency of alcohol use: None Drug Abuse: None Family History: Reviewed & Not Pertinent - Past Medical History Cardiac Medical History: Reports: Hx Congestive Heart Failure, Hx Heart Attack - 1991, Hx Hypercholesterolemia, Hx Hypertension, Hx Peripheral Vascular Disease - bilateral carotid endarterectomy. Pulmonary Medical History: Reports: Hx COPD - on 4L oxygen as needed., Hx Sleep Apnea - on CPAP and 4 L home oxygen. Endocrine Medical History: Reports: Hx Diabetes Mellitus Type 2 - diet controlled. Renal/ Medical History: Reports: Hx End Stage Renal Disease. Denies: Hx Peritoneal Dialysis Psychiatric Medical History: Denies: Hx Depression Past Surgical History: Reports: Hx Cardiac Catheterization - 1991 AND 2001, Hx Orthopedic Surgery - left 5th toe amputation due to infection., Hx Vascular Surgery - AV fistula in 2017. B/L carotid endarterectomy., Other - right eye stent placed (since glaucoma). - Immunizations Hx Diphtheria, Pertussis, Tetanus Vaccination: Yes Hx Pneumococcal Vaccination: 11/24/12 Review of Systems - Review of Systems Notes: My Normal Review Basic REVIEW OF SYSTEMS: CONSTITUTIONAL : Denies fever, chills, or sweats. Denies recent illness. EENT: Denies eye, ear, throat, or mouth pain or symptoms. Denies nasal or sinus congestion. CARDIOVASCULAR: Denies chest pain. RESPIRATORY: Decreased air movement. Wheezing. Difficulty breathing. GASTROINTESTINAL: Denies abdominal pain. Denies nausea, vomiting, or diarrhea. MUSCULOSKELETAL: Denies neck or back pain or joint pain or swelling. SKIN: Denies rash or skin lesions. NEUROLOGICAL: Denies altered mental status or loss of consciousness. ALL OTHER SYSTEMS REVIEWED AND NEGATIVE. Physical Exam - Vital signs Vitals: Resp 31 H 10/22/18 23:07 - Notes Notes: General Appearance: Well nourished, alert, cooperative, mild acute distress, no obvious discomfort. 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 There is just mild tachypnea with this. When we take off the mask to switch him over to a BiPAP immediately starts having increasing difficulty breathing starts having more moderate distress. When he is placed back on our BiPAP mask this improved significantly. Vitals: reviewed, See vital signs table. Head: no swelling or tenderness to the head Eyes: PERRL, EOMI, Conjuctiva clear Mouth: No decreasd moisture Lungs: Scattered wheezing, No rales, No rhonci, No accessory muscle use, fair air exchange bilaterally. Heart: Normal rate, Regular rythm, No murmur, no rub Abdomen: Normal BS, soft, No rigidity, No abdominal tenderness, No guarding, no rebound, no abdominal masses, no organomegaly Extremities: strength 5/5 in all extremities, good pulses in all extremities, no swelling or tenderness in the extremities, no edema. Skin: warm, dry, appropriate color, no rash Neuro: speech clear, oriented x 3, normal affect, responds appropriately to questions. Course - Re-evaluation Re-evalutation: 10/23/18 00:35 Patient's chest x-ray shows some bilateral pleural effusions. They said they cannot rule out underlying infiltrative process. I think pneumonia is unlikely being he does not have a leukocytosis nor fever. SPECT this could relate to heart failure or his renal sufficiency. I have given dose of Lasix. He continues to look very well clinically on the BiPAP speaking full sentences with the BiPAP on his oxygen saturation is 98%. His industrial recruiter is Dr. Abdalla. His primary care doctor is Dr. Bertrand. I did call and speak with Dr. Mobley, hospitalist, who agrees to evaluate the patient for admission. Dictation of this chart was performed using voice recognition software; therefore, there may be some unintended grammatical errors. - Vital Signs Vital signs: Temp Pulse Resp BP Pulse Ox 19 166/40 H 96 10/22/18 23:22 10/22/18 23:22 10/22/18 23:22 - Laboratory Result Diagrams: 10/22/18 23:18 10/22/18 23:18 Laboratory results interpreted by me: 10/22/18 10/22/18 23:18 23:18 RBC 3.26 L Hgb 11.2 L Hct 32.6 L MCV 100 H MCH 34.2 H RDW 15.1 H Carbon Dioxide 20 L BUN 67 H Creatinine 4.75 H Est GFR ( Amer) 15 L Est GFR (Non-Af Amer) 12 L - EKG Interpretation by Me Additional EKG results interpreted by me: 10/22/18 23:18 EKG is reviewed and interpreted by me. EKG shows sinus rhythm versus A. fib with a rate of 72 bpm. The EKG computer is reading as atrial fibrillation however except for a single PAC the rhythm looks fairly regular and on some lead she can see what appears to be a P wave however there is baseline artifact making it difficult to really tell if these are truly P waves. I suspect that most likely has a sinus rhythm. QRS duration and QT intervals are within normal range. No old EKG available for comparison at this time. Discharge - Discharge Clinical Impression: CKD (chronic kidney disease), stage V, Pleural effusion, Dyspnea Condition: Good Disposition: ADMITTED INPATIENT Admitting Provider: Hospitalist Unit Admitted: IMCU Referrals: Arielle ABDALLA MD [Primary Care Provider] - Follow up as needed
[2018-10-22] MEDS: MAGNESIUM SULFATE/D5W 1 GM/100 ML RTUPB IV SCH ×2 (23:21→23:27)
[2018-10-22 23:38] LABS: ABSOLUTE BASOPHILS # (AUTO) 0.1 10^3/uL (0.0-0.2); ABSOLUTE EOSINOPHILS # (AUTO) 0.2 10^3/uL (0.0-0.6); ABSOLUTE LYMPHOCYTES (AUTO) 1.1 10^3/uL (0.5-4.7); ABSOLUTE NEUT (AUTO) 6.1 10^3/uL (1.7-8.2); BASOPHILS % (AUTO) 1.3 % (0-2); EOSINOPHILS % (AUTO) 2.1 % (0-6); HEMATOCRIT 32.6 % (37.9-51.0); HEMOGLOBIN 11.2 g/dL (13.5-17.0); LYMPHOCYTES % (AUTO) 13.1 % (13-45); MEAN CORPUSCULAR HEMOGLOBIN 34.2 pg (27.0-33.4); MEAN CORPUSCULAR HGB CONC 34.3 g/dL (32.0-36.0); MEAN CORPUSCULAR VOLUME 100 fl (80-97); MONOCYTES % (AUTO) 11.7 % (3-13); PLATELET COUNT 285 10^3/uL (150-450); RED BLOOD COUNT 3.26 10^6/uL (4.35-5.55); RED CELL DISTRIBUTION WIDTH 15.1 % (11.5-14.0); SEGMENTED NEUTROPHILS % (AUTO) 71.8 % (42-78); TOTAL CELLS COUNTED % (AUTO) 100 %; WHITE BLOOD COUNT 8.5 10^3/uL (4.0-10.5)
--- NOTE | 2018-10-22 23:40 | RADIOLOGY REPORT (SQ) ---
EXAM DESCRIPTION: XR CHEST 1 VIEW COMPLETED DATE/TME: 10/22/2018 23:09 CLINICAL HISTORY: 68 years Male dyspnea COMPARISON: 07/20/2014. FINDINGS: Cardiac size is stable. There are patchy areas of infiltrate in both lung bases with moderate pleural effusions. No pneumothorax. Overlying monitoring devices are present. IMPRESSION: Bilateral basilar infiltrate and moderate pleural effusions. Findings may reflect pneumonia
[2018-10-22 23:44] LABS: VENOUS BLOOD BASE EXCESS -4.6 mmol/L; VENOUS BLOOD HCO3 21.2 mmol/L (20-32); VENOUS BLOOD PCO2 41.9 mmHg (35-63); VENOUS BLOOD PH 7.32 (7.30-7.42)
[2018-10-22 23:59] LABS: ALANINE AMINOTRANSFERASE 46 U/L (21-72); ALBUMIN 3.8 g/dL (3.5-5.0); ALKALINE PHOSPHATASE 74 U/L (38-126); ANION GAP 15 (5-19); ASPARTATE AMINO TRANSFERASE 39 U/L (17-59); BILIRUBIN,DIRECT 0.3 mg/dL (0.0-0.4); BILIRUBIN,TOTAL 0.5 mg/dL (0.2-1.3); BLOOD UREA NITROGEN 67 mg/dL (7-20); CALCIUM 8.9 mg/dL (8.4-10.2); CARBON DIOXIDE 20 mmol/L (22-30); CHLORIDE 106 mmol/L (98-107); GLUCOSE 104 mg/dL (75-110); SODIUM 140.7 mmol/L (137-145); TOTAL PROTEIN 6.6 g/dL (6.3-8.2)
[2018-10-23] MEDS ORDERED: FUROSEMIDE INJ/PF 40 MG/4 ML SDV IV ONE (00:09)
[2018-10-23] MEDS ORDERED: DEXTROSE 40% GEL 15 GM TUBE PO PRN ×4 (01:40→02:22)
[2018-10-23] MEDS ORDERED: ACETAMINOPHEN 325 MG TABLET PO PRN (01:40)
[2018-10-23] MEDS ORDERED: PROMETHAZINE HCL 25 MG TABLET PO PRN (01:40)
[2018-10-23] MEDS ORDERED: MAG HYDROX/AL HYDROX/SIMETH SUSP 30 ML UDCUP PO PRN (01:40)
[2018-10-23] MEDS ORDERED: DEXTROSE 50%-WATER 25 GM/50 ML DISP.SYRIN IV PRN ×4 (01:40→02:22)
[2018-10-23] MEDS ORDERED: GLUCAGON,HUMAN RECOMB 1 MG INJ SUBCUT PRN (01:40)
[2018-10-23] MEDS ORDERED: PROMETHAZINE HCL INJ 25 MG/1 ML VIAL IV PRN (01:40)
[2018-10-23] MEDS ORDERED: IPRATROPIUM/ALBUTEROL 0.5-2.5 MG/3 ML AMPUL NEB PRN (01:40)
[2018-10-23] MEDS ORDERED: NORMAL SALINE 1000 ML 1,000 ML IV ONE (01:54)
[2018-10-23] MEDS ORDERED: INSULIN LISPRO 100 UNIT/ML 3 ML VIAL SUBCUT PRN (02:22)
[2018-10-23] MEDS ORDERED: GLUCAGON,HUMAN RECOMB 1 MG INJ IM PRN (02:22)
--- NOTE | 2018-10-23 02:31 | PDOC H&P ---
History of Present Illness Admission Date/PCP: 10/23/18 01:12 GEMINI MELENDEZ MD Patient complains of: Shortness of breath History of Present Illness: APURVA ELLSWORTH is a 68 year old male with medical history remarkable for stage V CKD, follows with Dr. Henao. Patient comes to the emergency department complaining of shortness of breath sincE Thanksgiven getting severe for 1 day, his who is at the bedside tells me that he has been laying in bed all day, walking from his living room to the bathroom was producing him severe dyspnea, he went to sleep around 10:30 PM thinking to go and see Dr. Melendez in the morning, ask his to help him to change his clothes with oxygen on. The patient uses oxygen as needed but yesterday has been using it all day and his tells me that this is really unusual for him. At some point his oxygen saturation at home was 78% on room air, he was wearing oxygen at 4 L with an oxygen saturation in the low 80s. His dyspnea was so severe that shortly after he went to bed he asked his to call EMS On 10/[address] Henao who is his clinical medical transcriptionist and his Lasix was decreased from 4 times a week to once a week as the patient was doing very good. Patient has an AV fistula in the left upper extremity but he is not on dialysis yet. Denies cough, phlegm, has been having some wheezing, denies fever, chills, nausea, vomiting, chest pain, abdominal pain, change of his bowel movements or urine. Noticed worsening bilateral lower extremities edema. Also has noticed decrease on his urine output. Upon EMS arrival he has noticed patient in respiratory distress with very poor air movement, given breathing treatments which helped. By the time I went to see him he is a still on BiPAP and is feeling much better. Past Medical History Cardiac Medical History: Reports: Congestive Heart Failure, Myocardial Infarction - 1991, Hyperlipidema, Hypertension, Peripheral Vascular Disease - bilateral carotid endarterectomy. Pulmonary Medical History: Reports: Chronic Obstructive Pulmonary Disease (COPD ) - on 4L oxygen as needed., Sleep Apnea - on CPAP and 4 L home oxygen. Endocrine Medical History: Reports: Diabetes Mellitus Type 2 - diet controlled. Renal/ Medical History: Reports: Chronic Kidney Disease, Other - CKD stage 5 Psychiatric Medical History: Denies: Depression Past Surgical History Past Surgical History: Reports: Cardiac Catheterization - 1991 AND 2001, Orthopedic Surgery - left 5th toe amputation due to infection., Vascular Surgery - AV fistula in 2017. B/L carotid endarterectomy., Other - right eye stent placed (since glaucoma). Social History Smoking Status: Former Smoker - Used to smoke more than 1 pack a day for 30 years, quit in 1991 Frequency of Alcohol Use: Occasional Hx Recreational Drug Use: No Drugs: None Hx Prescription Drug Abuse: No Family History Family History: Reviewed & Not Pertinent Family History: Father alcoholic, maternal grandmother diabetic, brother with history of CVA Parental Family History Reviewed: Yes - As above Children Family History Reviewed: Yes Sibling(s) Family History Reviewed.: Yes Medication/Allergy Home Medications: Amlodipine Besylate [Norvasc 10 mg Tablet] 10 mg PO QA03/10/18 Aspirin [Aspirin 325 mg Tablet] 325 mg PO DAILY@199903/10/18 Atorvastatin Calcium [Lipitor 40 mg Tablet] 40 mg PO DAILY@199903/10/18 Calcitriol [Rocaltrol 0.25 mcg Capsule] 0.25 mcg PO MOWEFR 03/10/18 Clonidine HCl [Catapres 0.1 mg Tablet] 0.1 mg PO Q8@0800,1200,199903/10/18 Cyanocobalamin (Vitamin B-12) [Vitamin B-12 1000 mcg Tablet] 1,000 mg PO DAILY@ 199903/10/18 Ergocalciferol (Vitamin D2) [Drisdol 50,000 unit (1.25MG) Capsule] 50,000 unit PO MO 03/10/18 Febuxostat [Uloric 40 mg Tablet] 40 mg PO QAM 03/10/18 Furosemide [Lasix 40 mg Tablet] 40 mg PO QA03/10/18 Hydralazine HCl [Apresoline 25 mg Tablet] 25 mg PO BID@0800,199903/10/18 Metoprolol Succinate [Toprol Xl 50 mg Tab.sr] 50 mg PO QAM 03/10/18 Nitroglycerin [Nitrostat 0.4 mg (1/150 Gr) Tabs 25/Bottle] 0.4 mg SL Q5MP PRN Sildenafil Citrate [Viagra] 100 mg PO .ASDIR 03/10/18 Allergies/Adverse Reactions: strawberry [[place]] Allergy (Verified 07/20/14 23:49) Review of Systems Review of Systems: As outlined in the HPI, all others negative Physical Exam Vital Signs: Temp Pulse Resp BP Pulse Ox 20 170/58 H 99 10/23/18 01:02 10/23/18 01:02 10/23/18 01:02 Additional comments: General appearance: Well-developed, well-nourished, alert and cooperative, and appears to be in no acute distress. Wearing BiPAP Head: Normocephalic Eyes: PEERL, EOMI, vision is grossly intact. Ears: External auditory canal and tympanic membranes clear, hearing grossly intact. Nose: No nasal discharge. Throat: Oral cavity and pharynx normal. No inflammation, swelling, exudate or lesions. Neck: Neck supple, nontender without lymphadenopathy, masses or thyromegaly. Cardiac: Normal S1 and S2. No S3, S4, systolic murmur present. Rhythm is regular. There is no cyanosis or pallor. Extremities are warm and well perfused. Capillary refill is less than 2 seconds. No carotid bruits. Lungs: By basilar crackles and severe diminished breath sounds, do not appreciate wheezing or rhonchi. Not using accessory muscles. Abdomen: Positive bowel sounds. Soft. Nondistended, nontender. No guarding or rebound. No masses. No hepatosplenomegaly Extremities: Left upper extremity AV fistula with good thrill. 3+ lower extremities pitting edema. Peripheral pulses intact. No varicosities. Neurological: Cranial nerves II through XII grossly intact. Strength and sensation symmetric and intact throughout. Reflexes 2+ throughout. Skin: Skin normal color, texture and turgor with no lesions or eruptions, warm and dry. Psychiatric: The mental examination revealed the patient was oriented to person , place, and time. The patient was able to demonstrate good judgment on recent , without hallucinations, abnormal affect or abnormal behaviors. Results Laboratory Results: 10/22/18 10/22/18 10/22/18 23:18 23:18 23:18 WBC 8.5 RBC 3.26 L Hgb 11.2 L Hct 32.6 L MCV 100 H MCH 34.2 H MCHC 34.3 RDW 15.1 H Plt Count 285 Seg Neutrophils % 71.8 Lymphocytes % 13.1 Monocytes % 11.7 Eosinophils % 2.1 Basophils % 1.3 Absolute Neutrophils 6.1 Absolute Lymphocytes 1.1 Absolute Monocytes 1.0 Absolute Eosinophils 0.2 Absolute Basophils 0.1 VBG pH 7.32 VBG pCO2 41.9 VBG HCO3 21.2 VBG Base Excess -4.6 Sodium 140.7 Potassium 5.0 Chloride 106 Carbon Dioxide 20 L Anion Gap 15 BUN 67 H Creatinine 4.75 H Est GFR ( Amer) 15 L Est GFR (Non-Af Amer) 12 L Glucose 104 Calcium 8.9 Total Bilirubin 0.5 Direct Bilirubin 0.3 AST 39 ALT 46 Alkaline Phosphatase 74 NT-Pro-B Natriuret Pep Total Protein 6.6 Albumin 3.8 10/22/18 23:18 WBC RBC Hgb Hct MCV MCH MCHC RDW Plt Count Seg Neutrophils % Lymphocytes % Monocytes % Eosinophils % Basophils % Absolute Neutrophils Absolute Lymphocytes Absolute Monocytes Absolute Eosinophils Absolute Basophils VBG pH VBG pCO2 VBG HCO3 VBG Base Excess Sodium Potassium Chloride Carbon Dioxide Anion Gap BUN Creatinine Est GFR ( Amer) Est GFR (Non-Af Amer) Glucose Calcium Total Bilirubin Direct Bilirubin AST ALT Alkaline Phosphatase NT-Pro-B Natriuret Pep 99623 H Total Protein Albumin Impressions: Chest X-Ray 10/22/18 23:09 IMPRESSION: Bilateral basilar infiltrate and moderate pleural effusions. Findings may reflect pneumonia Assessment & Plan - Diagnosis (1) Acute and chronic respiratory failure with hypoxia Is this a current diagnosis for this admission?: Yes Plan: I will call acute on chronic respiratory failure with hypoxia as the patient is oxygen dependent as needed, his oxygenation has dropped to 78% at home and on oxygen 4 L via nasal cannula to the low 80s, his oxygenation has improved on BiPAP to 97%. (2) Acute on chronic diastolic CHF (congestive heart failure) Is this a current diagnosis for this admission?: Yes Plan: Patient comes with progressive shortness of breath since , his Lasix has been decreased from 4 times a week to 1 time a week by his clinical medical transcriptionist Dr. Henao of the patient was doing really good. Chest x-ray shows pleural effusions with opacities which seems to be pulmonary edema. 40 mg of IV Lasix was given in the ED, will place him on 60 mg IV Lasix twice a day unless otherwise indicated by clinical medical transcriptionist Dr. Reeder who is radio time salesperson today. Input output every 8 hours. Daily weights. Continue BiPAP. (3) CKD (chronic kidney disease), stage V Is this a current diagnosis for this admission?: Yes Plan: Patient has a left upper extremity AV fistula. His BUN 67 and creatinine 4.75, before his BUN was 101 and creatinine 6.14, even though the patient seems to be on fluid overload patient does not seem to be uremic. (4) Diabetes mellitus type 2 in obese Is this a current diagnosis for this admission?: Yes Plan: Accu-Cheks q. before meals and at bedtime, insulin lispro sliding scale with hypoglycemia protocol. Apparently patient is she is diet control and Accu- Cheks would be discontinued if blood sugars are stable. (5) Hypertension Qualifiers: Hypertension type: essential hypertension Qualified Code(s): I10 - Essential (primary) hypertension Is this a current diagnosis for this admission?: Yes Plan: Initially 170/58, currently more stable after his respiratory status improved. Continue home antihypertensive medications. (6) DVT prophylaxis Is this a current diagnosis for this admission?: Yes Plan: Heparin - Time Time Spent: 50 to 70 Minutes Anticipated discharge: Home - Inpatient Certification Based on my medical assessment, after consideration of the patient's comorbidities, presenting symptoms, or acuity I expect that the services needed warrant INPATIENT care.: Yes I certify that my determination is in accordance with my understanding of Medicare's requirements for reasonable and necessary INPATIENT services [42 CFR 412.3e].: Yes Medical Necessity: Risk of Complication if Not Cared For in Hospital - Acute hypoxic respiratory failure with respiratory arrest - Plan Summary Plan Summary: Case discussed with patient and who is at the bedside, agree with plan.
[2018-10-23 05:25] LABS: HEMATOCRIT 30.7 % (37.9-51.0); HEMOGLOBIN 10.6 g/dL (13.5-17.0); MEAN CORPUSCULAR HEMOGLOBIN 34.6 pg (27.0-33.4); MEAN CORPUSCULAR HGB CONC 34.4 g/dL (32.0-36.0); MEAN CORPUSCULAR VOLUME 101 fl (80-97); PLATELET COUNT 221 10^3/uL (150-450); RED BLOOD COUNT 3.05 10^6/uL (4.35-5.55); RED CELL DISTRIBUTION WIDTH 15.3 % (11.5-14.0); WHITE BLOOD COUNT 5.8 10^3/uL (4.0-10.5)
[2018-10-23 05:40] LABS: ANION GAP 11 (5-19); BLOOD UREA NITROGEN 69 mg/dL (7-20); CALCIUM 8.6 mg/dL (8.4-10.2); CARBON DIOXIDE 20 mmol/L (22-30); CHLORIDE 109 mmol/L (98-107); GLUCOSE 145 mg/dL (75-110); SODIUM 140.2 mmol/L (137-145)
[2018-10-23 05:46] LABS: BASOPHILS % (MANUAL) 0 % (0-2); EOSINOPHILS % (MANUAL) 0 % (0-6)
[2018-10-23 05:47] LABS: ABSOLUTE LYMPHOCYTES# (MANUAL) 0.2 10^3/uL (0.5-4.7); ABSOLUTE MONOCYTES # (MANUAL) 0.1 10^3/uL (0.1-1.4); ABSOLUTE NEUTROPHILS# (MANUAL) 5.5 10^3/uL (1.7-8.2); LYMPHOCYTES % (MANUAL) 4 % (13-45); MONOCYTES % (MANUAL) 2 % (3-13); SEGMENTED NEUTROPHILS % (MAN) 94 % (42-78); TOTAL CELLS COUNTED 100
[2018-10-23 05:48] LABS: ANISOCYTOSIS SLIGHT; BURR CELLS 1+; PLATELET COMMENT ADEQUATE; POIKILOCYTOSIS SLIGHT; SCHISTOCYTES SLIGHT; TOXIC GRANULATION 1+
[2018-10-23] MEDS: HEPARIN SOD (PORCINE) 5,000 UNIT/ML 1 ML SYRINGE SUBCUT SCH ×3 (06:30→22:23)
--- NOTE | 2018-10-23 07:51 | EKG REPORT ---
SEVERITY:- ABNORMAL ECG - NSR WITH PACS BORDERLINE LEFT AXIS DEVIATION LOW VOLTAGE IN FRONTAL LEADS BORDERLINE R WAVE PROGRESSION, ANTERIOR LEADS : Confirmed by: Jean Solomon MD 23-Oct-2018 07:51:03
[2018-10-23] MEDS: FUROSEMIDE INJ/PF 40 MG/4 ML SDV IV SCH ×2 (10:38→22:23)
--- NOTE | 2018-10-23 18:58 | PDOC CONSULTATION ---
Consultation Consult Date: 10/23/18 Attending physician:: OBDULIA GOMEZ Consult reason:: Nephrology was consulted due to fluid overload in a patient with history of chronic kidney disease. History of Present Illness Admission Date/PCP: 10/23/18 01:12 Arielle HENAO MD History of Present Illness: APURVA ELLSWORTH is a 68 year old male gentleman who follows up with Dr. Henao with known history of chronic kidney disease stage V, diabetes, hypertension, anemia, fatty liver who was brought in by the EMS to the ER yesterday because of progressive shortness of breath. The patient has been having progressive worsening of shortness of breathing since before Thanksgiving last week. Yesterday it has gotten to the point that the patient really feel that his breathing is worse so he asked his to call the EMS and subsequently patient was admitted. He was hypoxic and at home his oxygen saturation was 78% requiring oxygen. His initial chest x-ray showed bilateral pleural effusions. He did require BiPAP on admission and was given Lasix intravenously. Patient was seen in the office in the first week of this month and our PA, Kade Torres on has decreased his Lasix from 4 times a week to once a week due to possible over diuresis because of elevated BUN up to 100 and creatinine of 6+. Upon presentation in the emergency room he has a BUN of 67 and creatinine of 4.75 with EGFR of 12 which is almost at his usual baseline kidney function. When I saw him this morning he said he felt much better already after he was given intravenous Lasix. He was still on BiPAP but patient claims he feels much better. He is making a good amount of urine output showing a good response to the Lasix. He denies any other symptoms of chest pains, nausea, vomiting, no changes in appetite. He said the only problem he has is with worsening shortness of breath and nothing more. Past Medical History Cardiac Medical History: Reports: Coronary Artery Disease, Hyperlipidemia, Hypertension-primary, Myocardial Infarction - 1991, Peripheral Vascular Disease - bilateral carotid endarterectomy. Pulmonary Medical History: Reports: Chronic Obstructive Pulmonary Disease (COPD ) - on 4L oxygen as needed., Sleep Apnea - on CPAP and 4 L home oxygen. EENT Medical History: Reports: Other - Glaucoma Endocrine Medical History: Reports: Diabetes Mellitus Type 2 - diet controlled. Renal/ Medical History: Reports: Chronic Kidney Disease Stage V Hematology Medical History: Reports Anemia of Chronic Kidney Disease Past Surgical History Past Surgical History: Reports: Cardiac Catheterization - 1991 AND 2001, Dialysis Access Surgery AVF - 2016, Orthopedic Surgery - left 5th toe amputation due to infection., Vascular Surgery - B/L carotid endarterectomy., Other - right eye stent placed (since glaucoma). Social History Information Source: Patient Smoking Status: Former Smoker Cigarettes Packs Per Day: 2 Number of Years Smokin Last Time Smoked: 11/24/1991 Frequency of Alcohol Use: Occasional Hx Recreational Drug Use: No Drugs: None Hx Prescription Drug Abuse: No - Advance Directive Resuscitation Status: Full Code Family History Family History: Reviewed & Not Pertinent Parental Family History Reviewed: Yes Children Family History Reviewed: Yes Sibling(s) Family History Reviewed.: Yes Medication/Allergy Home Medications: Amlodipine Besylate [Norvasc 10 mg Tablet] 5 mg PO QAM 03/10/18 Aspirin [Aspirin 325 mg Tablet] 325 mg PO DAILY@199903/10/18 Atorvastatin Calcium [Lipitor 40 mg Tablet] 40 mg PO DAILY@199903/10/18 Calcitriol [Rocaltrol 0.25 mcg Capsule] 0.25 mcg PO QAM 03/10/18 Clonidine HCl [Catapres 0.1 mg Tablet] 0.1 mg PO Q8@0800,1200,199903/10/18 Cyanocobalamin (Vitamin B-12) [Vitamin B-12 1000 mcg Tablet] 1,000 mg PO DAILY@ 199903/10/18 Ergocalciferol (Vitamin D2) [Drisdol 50,000 unit (1.25MG) Capsule] 50,000 unit PO MO@2200 PRN 03/10/18 Febuxostat [Uloric 40 mg Tablet] 40 mg PO QAM 03/10/18 Furosemide [Lasix 40 mg Tablet] 40 mg PO WE@0800 03/10/18 Hydralazine HCl [Apresoline 25 mg Tablet] 25 mg PO BID@08,199903/10/18 Metoprolol Succinate [Toprol Xl 50 mg Tab.sr] 50 mg PO QAM 03/10/18 Sildenafil Citrate [Viagra] 100 mg PO DAILYP PRN 03/10/18 Clobetasol Propionate [Temovate 0.05% Cream 15 gm] 1 applic TOP DAILYP PRN 10/23 Allergies/Adverse Reactions: strawberry [[place]] Allergy (Verified 07/20/14 23:49) Review of Systems All systems: reviewed and no additional remarkable complaints except as stated Review of Systems: Constitutional: ABSENT: chills, fatigue, fever(s), headache(s), weight gain, weight loss Eyes: ABSENT: visual disturbances Ears: ABSENT: hearing changes Cardiovascular: ABSENT: chest pain, edema, orthropnea, palpitations; dyspnea on exertion and at rest Respiratory: ABSENT: cough, hemoptysis Gastrointestinal: ABSENT: abdominal pain, constipation, diarrhea, hematemesis, hematochezia, nausea, vomiting Genitourinary: ABSENT: dysuria, hematuria Musculoskeletal: ABSENT: joint swelling Integumentary: ABSENT: rash, wounds Neurological: ABSENT: abnormal gait, abnormal speech, confusion, dizziness, focal weakness, numbness, syncope Psychiatric: ABSENT: anxiety, depression Endocrine: ABSENT: cold intolerance, heat intolerance, polydipsia, polyuria Hematologic/Lymphatic: ABSENT: easy bleeding, easy bruising, lymphadenopathy Physical Exam Vital Signs: Temp Pulse Resp BP Pulse Ox 98.5 F 71 20 164/65 H 94 10/23/18 16:06 10/23/18 16:06 10/23/18 16:06 10/23/18 16:06 10/23/18 16:06 Intake & Output 10/22/18 10/23/18 10/24/18 06:59 06:59 06:59 Intake Total 1000 Output Total 800 1525 Balance 200 -1525 Weight 120.3 kg Exam: General appearance: Patient was on BiPAP when I saw him but able to communicate , cooperative, well-developed, well-nourished Head exam: PRESENT: atraumatic, normocephalic Eye exam: PRESENT: Conjunctiva slightly pale, EOMI, PERRLA. ABSENT: conjunctival injection, scleral icterus Mouth exam: PRESENT: moist, neck supple, tongue midline Neck exam: PRESENT: full ROM. ABSENT: carotid bruit, JVD, lymphadenopathy, thyromegaly Respiratory exam: PRESENT: clear to auscultation bilaterally. ABSENT: rales, rhonchi, stridor, wheezes Cardiovascular exam: PRESENT: RRR, +S1, +S2. ABSENT: systolic murmur Pulses: PRESENT: normal radial pulses, normal dorsalis pedis pulses GI/Abdominal exam: PRESENT: normal bowel sounds, soft. ABSENT: guarding, mass, tenderness Rectal exam: Deferred Extremities exam: PRESENT: full ROM. Grade 1 bilateral lower extremity edema ABSENT: calf tenderness Musculoskeletal: PRESENT: full ROM. ABSENT: deformity Neurological exam: PRESENT: alert, Awake, Oriented to person, Oriented to place , Oriented to time, reflexes normal, CN II-XII grossly intact. ABSENT: motor sensory deficit Psychiatric exam: PRESENT: appropriate affect, normal mood. ABSENT: homicidal ideation, suicidal ideation Skin exam: PRESENT: intact, dry, warm. ABSENT: rash Results Laboratory Results: 10/23/18 04:49 10/23/18 04:49 10/23/18 10/23/18 04:49 04:49 WBC 5.8 RBC 3.05 L Hgb 10.6 L Hct 30.7 L MCV 101 H MCH 34.6 H MCHC 34.4 RDW 15.3 H Plt Count 221 Seg Neutrophils % Not Reportable Lymphocytes % Not Reportable Monocytes % Not Reportable Eosinophils % Not Reportable Basophils % Not Reportable Absolute Neutrophils Not Reportable Absolute Lymphocytes Not Reportable Absolute Monocytes Not Reportable Absolute Eosinophils Not Reportable Absolute Basophils Not Reportable Sodium 140.2 Potassium 5.0 Chloride 109 H Carbon Dioxide 20 L Anion Gap 11 BUN 69 H Creatinine 4.61 H Est GFR ( Amer) 15 L Est GFR (Non-Af Amer) 13 L Glucose 145 H Calcium 8.6 Impressions: Chest X-Ray 10/22/18 23:09 IMPRESSION: Bilateral basilar infiltrate and moderate pleural effusions. Findings may reflect pneumonia Assessment & Plan - Diagnosis (1) Acute and chronic respiratory failure with hypoxia Is this a current diagnosis for this admission?: Yes Plan: Is secondary to fluid overload in a patient with baseline chronic kidney disease and coronary artery disease. I think the patient can be weaned off the BiPAP and only use it during sleep. He was able to tolerate being on nasal cannula this day. Continue current dose of IV Lasix at 60 mg every 12. (2) CKD (chronic kidney disease), stage V Is this a current diagnosis for this admission?: Yes Plan: His kidney function is not worse than his usual baseline however I suspect that the patient's kidney disease is slowly progressive to the point that he probably would need to be initiated on hemodialysis very soon using his left AV fistula. There is no indication for any urgent or emergent renal replacement therapy at this time. Continue IV diuresis and monitoring of kidney function and electrolytes. (3) Acute on chronic diastolic CHF (congestive heart failure) Is this a current diagnosis for this admission?: Yes (4) Anemia in chronic kidney disease (CKD) Is this a current diagnosis for this admission?: Yes (5) Hypertension Qualifiers: Hypertension type: essential hypertension Qualified Code(s): I10 - Essential (primary) hypertension Is this a current diagnosis for this admission?: Yes Plan: Not optimally controlled but I think adding diuretics on board will hopefully control this blood pressure better. (6) Pleural effusion Is this a current diagnosis for this admission?: Yes Plan: Bilateral secondary to CHF with fluid overload. (7) Obstructive sleep apnea Is this a current diagnosis for this admission?: Yes Plan: Continue to use BiPAP during sleep. - Notes Notes: Thank you very much for this consultation. We will follow the patient with you. - Time Time Spent: Greater than 70 Minutes
[2018-10-24] MEDS: HEPARIN SOD (PORCINE) 5,000 UNIT/ML 1 ML SYRINGE SUBCUT SCH ×3 (05:34→22:47)
[2018-10-24] MEDS: FUROSEMIDE INJ/PF 40 MG/4 ML SDV IV SCH ×2 (09:36→22:47)
[2018-10-24 09:46] LABS: ARTERIAL BLOOD BASE EXCESS -2.3 mmol/L; ARTERIAL BLOOD H2CO3 1.25 mmol/L (1.05-1.35); ARTERIAL BLOOD O2 SATURATION 94.4 % (94-98); ARTERIAL BLOOD PCO2 41.5 mmHg (35-45); ARTERIAL BLOOD PH 7.36 (7.35-7.45); ARTERIAL BLOOD PO2 74.2 mmHg (80-100); ARTERIAL BLOOD TOTAL CO2 24.2 mmol/L (23-27)
[2018-10-24 09:53] LABS: ARTERIAL BLOOD FIO2 3.5
[2018-10-24] MEDS ORDERED: CLONIDINE HCL 0.1 MG TABLET PO ONE (15:12)
[2018-10-24 15:14] LABS: ANION GAP 14 (5-19); BLOOD UREA NITROGEN 76 mg/dL (7-20); CALCIUM 8.8 mg/dL (8.4-10.2); CARBON DIOXIDE 24 mmol/L (22-30); CHLORIDE 102 mmol/L (98-107); GLUCOSE 103 mg/dL (75-110); POTASSIUM 4.7 mmol/L (3.6-5.0); SODIUM 139.5 mmol/L (137-145)
[2018-10-24] MEDS: METOPROLOL SUCCINATE 50 MG TAB.SR.24H PO SCH (16:12)
--- NOTE | 2018-10-24 17:32 | PROGRESS NOTE E ---
Progress Note NAME: APURVA ELLSWORTH : 1950 AGE: 68Y DATE: 10/24/2018 ROOM: 327 SUBJECTIVE: The patient is lying in bed. His family is present at the bedside active in the patient's care. The patient states he feels tremendously better. The patient states that he feels as good as he did prior to Thanksgiving. The patient denies any nausea, vomiting, diarrhea. No shortness of breath, dizziness, chest pain. No fevers, chills. The patient still has an excellent urine output. The patient does not voice any other concerns at this time. BRIEF HISTORY: The patient is a 68-year-old male with a past medical history of chronic kidney disease stage V with a fistula. The patient is followed outpatient by Dr. Henao. The patient who is being followed by the hospitalist at this time is actually a patient of Dr. Bertrand. The patient presented due to increasing shortness of breath. The patient had actually been decreased to taking a diuretic only once a day given his kidney dysfunction. However, the patient had ever increasing edema and was very short of breath. The patient was found to have pulmonary edema and has been admitted to the hospital. The patient has been diuresed with IV Lasix. The patient has been seen and evaluated by Dr. Reeder. The patient's creatinine has remained at its baseline of 4.35 in spite of good diuresis, therefore, we will continue the current trend and no other concerns are voiced at this time. REVIEW OF SYSTEMS: Rest of review of systems is negative. MEDICATIONS: Medications have been reviewed. OBJECTIVE: GENERAL: The patient is a 68-year-old male who is awake, alert and oriented to person, place, time and situation. He is verbal, conversational. Does not appear to be in any acute distress. VITAL SIGNS FOLLOWS: Temperature is 98.1, pulse 64, respirations 22, blood pressure 157/55. Oxygen saturation 97% on 3.5 L nasal cannula. SKIN: Warm and dry. No rash. Not diaphoretic. HEENT: Pupils equal, round and reactive to light and accommodation. Conjunctiva is pink. NECK: There is no evidence of JVP. CARDIOVASCULAR SYSTEM: Heart is regular. No rub. CHEST: Diminished, symmetrical. Bilateral basal crackles. ABDOMEN: Soft, obese, nontender. EXTREMITIES: There is no clubbing, cyanosis. The patient still has +1 bilateral lower extremity pitting edema. PSYCHIATRIC: Appropriate affect, pleasant mood. DIAGNOSTICS: Lab values are as follows. Hematology obtained on 10/23/2018: WBCs are 5.8. Hemoglobin is 10.6. Hematocrit is 30.7. Platelet count is 221,000. Chemistry obtained on 10/24/2018: Sodium is 139, potassium 4.7, chloride is 102, carbon dioxide 24. BUN 76, creatinine 4.35, glucose *------*. Calcium is 8.8. Magnesium is 2.5. IMPRESSION AND PLAN: 1. ACUTE ON CHRONIC DIASTOLIC CONGESTIVE HEART FAILURE. The patient has responded very well to diuresis. Will continue to monitor the patient's kidney function and Is and Os. Repeat chemistries a.m. and follow. 2. ACUTE ON CHRONIC HYPOXEMIC RESPIRATORY FAILURE EVIDENTLY SECONDARY TO #1. The patient had profound pulmonary edema. Overall, he is much improved. Will continue current Lasix dosing and follow. 3. CHRONIC KIDNEY DISEASE STAGE V. The patient actually appears to be at baseline. He does have a left AV fistula if needed. He is normally followed by Dr. Henao. 4. HYPERTENSION. Blood pressures have been somewhat elevated, however, he has not been continued on his home medication. I will try to do that at this time and hopefully we can get on top of this. 5. PLEURAL EFFUSION. This is secondary to the patient's volume overload from his CHF. Most likely has an underlying illness, cardiorenal syndrome as well. 6. OBSTRUCTIVE SLEEP APNEA. The patient wears a BiPAP at night. 7. ANEMIA OF CHRONIC DISEASE. The patient's hemoglobin overall is stable. 8. GOUT. The patient has no active flare at this point. DISPOSITION: The patient is a FULL CODE. Pending patient's symptomatology and diagnostic findings, will reevaluate in the a.m. Time spent on this followup including assessment, plan, physical examination, patient education, review of records and family meeting was 25 minutes. DICTATING PHYSICIAN: GEMINI MAHAN NP [id number] PHY#: [id number] ID: [id number] JOB#: [id number] ACCT: [id number] cc: >
[2018-10-24] MEDS: HYDRALAZINE HCL 25 MG TABLET PO SCH (20:48)
[2018-10-24] MEDS: ASPIRIN 325 MG TABLET PO SCH (20:49)
[2018-10-24] MEDS: ATORVASTATIN CALCIUM 40 MG TABLET PO SCH (20:49)
[2018-10-24] MEDS: CLONIDINE HCL 0.1 MG TABLET PO SCH (20:50)
[2018-10-25] MEDS: HEPARIN SOD (PORCINE) 5,000 UNIT/ML 1 ML SYRINGE SUBCUT SCH ×3 (05:59→23:08)
[2018-10-25 06:58] LABS: HEMATOCRIT 29.6 % (37.9-51.0); HEMOGLOBIN 10.2 g/dL (13.5-17.0); MEAN CORPUSCULAR HEMOGLOBIN 34.6 pg (27.0-33.4); MEAN CORPUSCULAR HGB CONC 34.6 g/dL (32.0-36.0); MEAN CORPUSCULAR VOLUME 100 fl (80-97); PLATELET COUNT 227 10^3/uL (150-450); RED BLOOD COUNT 2.96 10^6/uL (4.35-5.55); RED CELL DISTRIBUTION WIDTH 14.9 % (11.5-14.0); WHITE BLOOD COUNT 7.9 10^3/uL (4.0-10.5)
[2018-10-25 07:20] LABS: ALANINE AMINOTRANSFERASE 33 U/L (21-72); ALBUMIN 3.2 g/dL (3.5-5.0); ALKALINE PHOSPHATASE 55 U/L (38-126); ANION GAP 13 (5-19); ASPARTATE AMINO TRANSFERASE 22 U/L (17-59); BILIRUBIN,DIRECT 0.3 mg/dL (0.0-0.4); BILIRUBIN,TOTAL 0.4 mg/dL (0.2-1.3); BLOOD UREA NITROGEN 85 mg/dL (7-20); CALCIUM 8.7 mg/dL (8.4-10.2); CARBON DIOXIDE 24 mmol/L (22-30); CHLORIDE 103 mmol/L (98-107); GLUCOSE 94 mg/dL (75-110); POTASSIUM 4.5 mmol/L (3.6-5.0); SODIUM 139.6 mmol/L (137-145); TOTAL PROTEIN 5.7 g/dL (6.3-8.2)
[2018-10-25] MEDS: AMLODIPINE BESYLATE 10 MG TABLET PO SCH (08:02)
[2018-10-25] MEDS: METOPROLOL SUCCINATE 50 MG TAB.SR.24H PO SCH (08:02)
[2018-10-25] MEDS: HYDRALAZINE HCL 25 MG TABLET PO SCH ×2 (08:03→20:41)
[2018-10-25] MEDS: FEBUXOSTAT 40 MG TABLET PO SCH (08:04)
[2018-10-25] MEDS: CALCITRIOL 0.25 MCG CAPSULE PO SCH (08:05)
[2018-10-25] MEDS: CLONIDINE HCL 0.1 MG TABLET PO SCH ×3 (08:06→20:43)
--- NOTE | 2018-10-25 17:37 | PDOC PROGRESS REPORT ---
Subjective Progress Note for:: 10/25/18 Subjective:: No adverse events overnight. He said he is feeling a lot better today. He is not having any shortness of breath. He says his swelling is gone down substantially. He is not had any cough. He still has the oxygen on but says his breathing has felt good. Reason For Visit: ACUTE HYPOXIC RESPIRATORY FAILURE, FLUID Physical Exam Vital Signs: Temp Pulse Resp BP Pulse Ox 97.3 F 51 L 20 145/51 H 98 10/25/18 12:00 10/25/18 12:00 10/25/18 12:00 10/25/18 12:00 10/25/18 12:00 Intake & Output 10/24/18 10/25/18 10/26/18 06:59 06:59 06:59 Intake Total 600 1672 Output Total 2825 2975 Balance -2225 -1303 Weight 116.7 kg 112 kg General appearance: PRESENT: no acute distress, cooperative, disheveled, morbidly obese Respiratory exam: PRESENT: decreased breath sounds, symmetrical, unlabored. ABSENT: accessory muscle use, rales, rhonchi, tachypnea, wheezes Cardiovascular exam: PRESENT: RRR, +S1, +S2. ABSENT: diastolic murmur, systolic murmur GI/Abdominal exam: PRESENT: normal bowel sounds, soft. ABSENT: distended, guarding, rebound, tenderness Extremities exam: PRESENT: +1 edema. ABSENT: clubbing Musculoskeletal exam: PRESENT: normal inspection. ABSENT: deformity Neurological exam: PRESENT: alert, awake, oriented to person, oriented to place , oriented to time, oriented to situation Psychiatric exam: PRESENT: appropriate affect, normal mood Skin exam: PRESENT: dry, warm Results Laboratory Results: 10/25/18 05:50 10/25/18 05:50 10/25/18 10/25/18 05:50 05:50 WBC 7.9 RBC 2.96 L Hgb 10.2 L Hct 29.6 L MCV 100 H MCH 34.6 H MCHC 34.6 RDW 14.9 H Plt Count 227 Sodium 139.6 Potassium 4.5 Chloride 103 Carbon Dioxide 24 Anion Gap 13 BUN 85 H Creatinine 5.13 H Est GFR ( Amer) 14 L Est GFR (Non-Af Amer) 11 L Glucose 94 Calcium 8.7 Magnesium 2.5 H Total Bilirubin 0.4 AST 22 ALT 33 Alkaline Phosphatase 55 Total Protein 5.7 L Albumin 3.2 L Impressions: Chest X-Ray 10/22/18 23:09 IMPRESSION: Bilateral basilar infiltrate and moderate pleural effusions. Findings may reflect pneumonia Assessment & Plan - Diagnosis (1) Acute and chronic respiratory failure with hypoxia Is this a current diagnosis for this admission?: Yes Plan: Has improved with diuresis. He uses oxygen and CPAP at night. We will try to wean the oxygen during the day to see how his pulse oximetry does. (2) Acute on chronic diastolic CHF (congestive heart failure) Is this a current diagnosis for this admission?: Yes Plan: Substantially improved with Lasix. However, his creatinine has elevated even more, but he is getting excellent urine output. (3) Acute kidney injury superimposed on chronic kidney disease Is this a current diagnosis for this admission?: Yes Plan: Creatinine elevated after diuresis. He still has a little bit of fluid overload but has responded well to Lasix. We will consider de-escalating diuresis temporarily. (4) CKD (chronic kidney disease), stage V Is this a current diagnosis for this admission?: Yes Plan: He already has a fistula in case he has to have dialysis. - Time Time Spent with patient: 25-34 minutes
[2018-10-25] MEDS: ASPIRIN 325 MG TABLET PO SCH (20:40)
[2018-10-25] MEDS: ATORVASTATIN CALCIUM 40 MG TABLET PO SCH (20:41)
[2018-10-25] MEDS: FUROSEMIDE INJ/PF 40 MG/4 ML SDV IV SCH ×2 (23:07)
[2018-10-26] MEDS: HEPARIN SOD (PORCINE) 5,000 UNIT/ML 1 ML SYRINGE SUBCUT SCH ×3 (06:05→21:42)
[2018-10-26 06:56] LABS: ANION GAP 11 (5-19); BLOOD UREA NITROGEN 88 mg/dL (7-20); CALCIUM 8.4 mg/dL (8.4-10.2); CARBON DIOXIDE 24 mmol/L (22-30); CHLORIDE 102 mmol/L (98-107); GLUCOSE 86 mg/dL (75-110); PHOSPHORUS 4.7 mg/dL (2.5-4.5); POTASSIUM 4.2 mmol/L (3.6-5.0); SODIUM 137.2 mmol/L (137-145)
[2018-10-26] MEDS: AMLODIPINE BESYLATE 10 MG TABLET PO SCH (08:12)
[2018-10-26] MEDS: CALCITRIOL 0.25 MCG CAPSULE PO SCH (08:12)
[2018-10-26] MEDS: CLONIDINE HCL 0.1 MG TABLET PO SCH ×3 (08:12→19:55)
[2018-10-26] MEDS: FEBUXOSTAT 40 MG TABLET PO SCH (08:13)
[2018-10-26] MEDS: HYDRALAZINE HCL 25 MG TABLET PO SCH ×2 (08:13→19:56)
[2018-10-26] MEDS: FUROSEMIDE INJ/PF 40 MG/4 ML SDV IV SCH (10:29)
[2018-10-26] MEDS: METOPROLOL SUCCINATE 50 MG TAB.SR.24H PO SCH (10:29)
[2018-10-26] MEDS ORDERED: ACETAMINOPHEN 325 MG TABLET PO PRN (10:50)
[2018-10-26] MEDS ORDERED: PROMETHAZINE HCL INJ 25 MG/1 ML VIAL IV PRN (11:00)
--- NOTE | 2018-10-26 11:15 | PDOC PROGRESS REPORT ---
Subjective Progress Note for:: 10/26/18 Subjective:: Patient is doing well. He only uses the BiPAP now during sleep for his sleep apnea but other than that he is on nasal cannula and his breathing good. He responded very well to the diuretics and has been making good amount of urine. He reports that he is breathing well and does not really have any other new complaints. He denies any chest pains, nausea, vomiting and feeling poorly. He actually appears better compared to admission. Reason For Visit: ACUTE HYPOXIC RESPIRATORY FAILURE, FLUID Physical Exam Vital Signs: Temp Pulse Resp BP Pulse Ox 97.5 F 88 23 H 143/44 H 95 10/26/18 08:00 10/26/18 08:00 10/26/18 08:00 10/26/18 08:00 10/26/18 09:39 Intake & Output 10/25/18 10/26/18 10/27/18 06:59 06:59 06:59 Intake Total 1672 1951 Output Total 2975 2150 Balance -1303 -199 Weight 112 kg 113.9 kg Exam: General appearance: PRESENT: no acute distress, cooperative, well-developed, well-nourished Head exam: PRESENT: atraumatic, normocephalic Eye exam: PRESENT: conjunctiva pink, PERRLA. ABSENT: scleral icterus Neck exam: ABSENT: JVD Respiratory exam: PRESENT: Normal breath sounds. ABSENT: crackles, rales, rhonchi, unlabored, wheezes Cardiovascular exam: PRESENT: Regular rate rhythm -+S1, +S2. Soft grade 2/6 systolic murmur ABSENT: diastolic murmur GI/Abdominal exam: PRESENT: normal bowel sounds, soft. ABSENT: guarding, mass, tenderness Extremities exam: ABSENT: No edema Neurological exam: PRESENT: alert, awake, oriented to person, place and time. Skin exam: PRESENT: dry, warm, Results Laboratory Results: 10/25/18 05:50 10/26/18 05:40 10/26/18 05:40 Sodium 137.2 Potassium 4.2 Chloride 102 Carbon Dioxide 24 Anion Gap 11 BUN 88 H Creatinine 4.97 H Est GFR ( Amer) 14 L Est GFR (Non-Af Amer) 12 L Glucose 86 Calcium 8.4 Phosphorus 4.7 H Magnesium 2.2 Impressions: Chest X-Ray 10/22/18 23:09 IMPRESSION: Bilateral basilar infiltrate and moderate pleural effusions. Findings may reflect pneumonia Assessment & Plan - Diagnosis (1) Acute and chronic respiratory failure with hypoxia Is this a current diagnosis for this admission?: Yes Plan: Improved with diuresis. Currently on nasal cannula and just BiPAP during sleep. (2) CKD (chronic kidney disease), stage V Is this a current diagnosis for this admission?: Yes Plan: Kidney function around baseline. Patient does not have any uremic symptoms and is producing a good amount of urine output. There is no indication for any renal replacement therapy at this time. Dose of Lasix needs to be determined for discharge. Discussed with patient that since he is responding well to diuretics and he does not have any uremic symptoms he does not need to be initiated on renal placement therapy at this time however once the Lasix does not work any more than the last resort will be starting him on hemodialysis through his AV fistula. They understood. We will switch the IV Lasix to oral Lasix today. (3) Acute on chronic diastolic CHF (congestive heart failure) Is this a current diagnosis for this admission?: Yes (4) Anemia in chronic kidney disease (CKD) Is this a current diagnosis for this admission?: Yes Plan: Stable. (5) Hypertension Qualifiers: Hypertension type: essential hypertension Qualified Code(s): I10 - Essential (primary) hypertension Is this a current diagnosis for this admission?: Yes Plan: Adequately controlled. (6) Pleural effusion Is this a current diagnosis for this admission?: Yes (7) Obstructive sleep apnea Is this a current diagnosis for this admission?: Yes Plan: On BiPAP during sleep. - Time Time with patient: 15-25 minutes
[2018-10-26] MEDS: FUROSEMIDE 40 MG TABLET PO SCH ×2 (12:03→17:00)
--- NOTE | 2018-10-26 12:21 | RADIOLOGY REPORT (SQ) ---
EXAM DESCRIPTION: CHEST 2 VIEWS COMPLETED DATE/TIME: 10/26/2018 11:48 am REASON FOR STUDY: Dyspnea COMPARISON: Chest films 10/22/2018, 03/10/2018, 07/20/2014 EXAM PARAMETERS: NUMBER OF VIEWS: two views TECHNIQUE: Digital Frontal and Lateral radiographic views of the chest acquired. RADIATION DOSE: NA LIMITATIONS: none FINDINGS: LUNGS AND PLEURA: Small to moderate bilateral pleural effusions are present in the lateral and posterior costophrenic sulci. There consolidation at both lung bases atelectasis versus pneumonia, unchanged from 10/22/2018. No pneumothorax. MEDIASTINUM AND HILAR STRUCTURES: No masses or contour abnormalities. HEART AND VASCULAR STRUCTURES: No cardiomegaly. BONES: No acute findings. HARDWARE: None in the chest. OTHER: No other significant finding. IMPRESSION: Small to moderate bilateral pleural effusions are present, better visualized than on hilda or portable chest film 10/22/2018. Consolidation of both lung bases atelectasis versus pneumonia, similar compared to 10/22/2018 TECHNICAL DOCUMENTATION: JOB ID: [id number] [employer]- All Rights Reserved Reading location - IP/workstation name: [facility]
[2018-10-26] MEDS: ASPIRIN 325 MG TABLET PO SCH (19:56)
[2018-10-26] MEDS: ATORVASTATIN CALCIUM 40 MG TABLET PO SCH (19:56)
[2018-10-27] MEDS: HEPARIN SOD (PORCINE) 5,000 UNIT/ML 1 ML SYRINGE SUBCUT SCH (05:19)
[2018-10-27 07:14] LABS: ANION GAP 12 (5-19); BLOOD UREA NITROGEN 89 mg/dL (7-20); CALCIUM 8.9 mg/dL (8.4-10.2); CARBON DIOXIDE 26 mmol/L (22-30); CHLORIDE 101 mmol/L (98-107); GLUCOSE 97 mg/dL (75-110); SODIUM 138.5 mmol/L (137-145)
[2018-10-27] MEDS ORDERED: AMLODIPINE BESYLATE 5 MG TABLET PO SCH (08:00)
[2018-10-27] MEDS: METOPROLOL SUCCINATE 50 MG TAB.SR.24H PO SCH (08:47)
[2018-10-27] MEDS: CLONIDINE HCL 0.1 MG TABLET PO SCH (08:49)
[2018-10-27] MEDS: CALCITRIOL 0.25 MCG CAPSULE PO SCH (08:49)
[2018-10-27] MEDS: FEBUXOSTAT 40 MG TABLET PO SCH (08:49)
[2018-10-27] MEDS: HYDRALAZINE HCL 25 MG TABLET PO SCH (08:49)
[2018-10-27] MEDS: FUROSEMIDE 40 MG TABLET PO SCH (08:49)
[2018-10-27 11:12] VITALS: BP 137/55
--- NOTE | 2018-10-27 18:23 | PDOC DISCHARGE SUMMARY ---
General - Admit/Disc Date/PCP Admission Date/Primary Care Provider: 10/23/18 01:12 Arielle HENAO MD Discharge Date: 10/27/18 - Discharge Diagnosis (1) Acute and chronic respiratory failure with hypoxia Is this a current diagnosis for this admission?: Yes (2) Acute on chronic diastolic CHF (congestive heart failure) Is this a current diagnosis for this admission?: Yes (3) Anemia in chronic kidney disease (CKD) Is this a current diagnosis for this admission?: Yes (4) CKD (chronic kidney disease), stage IV Is this a current diagnosis for this admission?: Yes (5) Hypertension Is this a current diagnosis for this admission?: Yes (6) Obstructive sleep apnea Is this a current diagnosis for this admission?: Yes - Additional Information Resuscitation Status: Full Code Discharge Diet: Other (Comments) Discharge Activity: Activity As Tolerated Home Medications: Amlodipine Besylate [Norvasc 10 mg Tablet] 5 mg PO QAM 03/10/18 Aspirin [Aspirin 325 mg Tablet] 325 mg PO DAILY@199903/10/18 Atorvastatin Calcium [Lipitor 40 mg Tablet] 40 mg PO DAILY@199903/10/18 Calcitriol [Rocaltrol 0.25 mcg Capsule] 0.25 mcg PO QAM 03/10/18 Clonidine HCl [Catapres 0.1 mg Tablet] 0.1 mg PO Q8@0800,1200,199903/10/18 Cyanocobalamin (Vitamin B-12) [Vitamin B-12 1000 mcg Tablet] 1,000 mg PO DAILY@ 199903/10/18 Ergocalciferol (Vitamin D2) [Drisdol 50,000 unit (1.25MG) Capsule] 50,000 unit PO MO@2200 PRN 03/10/18 Febuxostat [Uloric 40 mg Tablet] 40 mg PO QAM 03/10/18 Furosemide [Lasix 40 mg Tablet] 40 mg PO WE@0800 03/10/18 Hydralazine HCl [Apresoline 25 mg Tablet] 25 mg PO BID@0800,199903/10/18 Metoprolol Succinate [Toprol Xl 50 mg Tab.sr] 50 mg PO QAM 03/10/18 Sildenafil Citrate [Viagra] 100 mg PO DAILYP PRN 03/10/18 Clobetasol Propionate [Temovate 0.05% Cream 15 gm] 1 applic TOP DAILYP PRN 10/23 History of Present Illness History of Present Illness: APURVA ELLSWORTH is a 68 year old male CKD stage V, CHF, hypertension, BOLIVAR, presented to ED on 10/23/2018 complaining of worsening shortness of breath since Thanksgiving acutely worsening 1 day prior to admission. Patient uses home oxygen as needed on a chronic basis but his SPO2 saturation on home monitoring 78 on room air and 80s on 4 L of supplemental oxygen. 10/08/[address] Javier Henao his house officer and his Lasix was decreased to 4 times per day. Patient has an AV fistula in the left upper extremity but he is not on dialysis yet. Denied cough,denies fever, chills, nausea, vomiting, chest pain, abdominal pain , change of his bowel movements or urine. Noticed worsening bilateral lower extremities edema with decreased urine output. This was called and patient was noted to be in respiratory distress was brought to ED where he was started on BiPAP. Hospital Course Hospital Course: Acute and chronic respiratory failure with hypoxia Improved with diuresis. Nightly BiPAP/CPAP. On nasal cannula on the day of discharge. CKD (chronic kidney disease), stage V Kidney function returned to baseline. Nonoliguric did not have any uremic symptoms did not receive any renal replacement therapy on this admission. His Lasix was increased during this admission with good response. He must follow-up with his nephrology as outpatient as soon as possible. An appointment with his PCP in 2 days. PCP was called and made aware of this admission and his follow-up appointment with him. Acute on chronic diastolic CHF (congestive heart failure) Moderate improvement with diuresis. Anemia in chronic kidney disease (CKD) Stable. Blood by nephrology as outpatient. Hypertension Restart home meds. Controlled. Obstructive sleep apnea Start on nocturnal BiPAP. Physical Exam Vital Signs: Temp Pulse Resp BP Pulse Ox 97.3 F 52 L 18 137/55 H 97 10/27/18 11:08 10/27/18 11:08 10/27/18 11:08 10/27/18 11:08 10/27/18 11:08 Intake & Output 10/26/18 10/27/18 10/28/18 06:59 06:59 06:59 Intake Total 1951 1708 Output Total 2150 1150 Balance -199 558 Weight 113.9 kg 112.9 kg General appearance: PRESENT: no acute distress, well-developed, well-nourished Head exam: PRESENT: atraumatic, normocephalic Eye exam: PRESENT: conjunctiva pink, EOMI, PERRLA. ABSENT: scleral icterus Ear exam: PRESENT: normal external ear exam Mouth exam: PRESENT: moist, tongue midline Neck exam: ABSENT: carotid bruit, JVD, lymphadenopathy, thyromegaly Respiratory exam: PRESENT: clear to auscultation nesha. ABSENT: rales, rhonchi, wheezes Cardiovascular exam: PRESENT: RRR. ABSENT: diastolic murmur, rubs, systolic murmur Pulses: PRESENT: normal dorsalis pedis pul Vascular exam: PRESENT: normal capillary refill GI/Abdominal exam: PRESENT: normal bowel sounds, soft. ABSENT: distended, guarding, mass, organolmegaly, rebound, tenderness Rectal exam: PRESENT: deferred Extremities exam: PRESENT: full ROM. ABSENT: calf tenderness, clubbing, pedal edema Neurological exam: PRESENT: alert, awake, oriented to person, oriented to place , oriented to time, oriented to situation, CN II-XII grossly intact. ABSENT: motor sensory deficit Psychiatric exam: PRESENT: appropriate affect, normal mood. ABSENT: homicidal ideation, suicidal ideation Skin exam: PRESENT: dry, intact, warm. ABSENT: cyanosis, rash Results Laboratory Results: 10/25/18 05:50 10/27/18 06:06 10/27/18 06:06 Sodium 138.5 Potassium 4.0 Chloride 101 Carbon Dioxide 26 Anion Gap 12 BUN 89 H Creatinine 5.07 H Est GFR ( Amer) 14 L Est GFR (Non-Af Amer) 11 L Glucose 97 Calcium 8.9 Impressions: Chest X-Ray 10/26/18 06:00 IMPRESSION: Small to moderate bilateral pleural effusions are present, better visualized than on prior portable chest film 10/22/2018. Consolidation of both lung bases atelectasis versus pneumonia, similar compared to 10/22/2018 Qualifiers - * PATIENT BEING DISCHARGED WITH ANY OF THE FOLLOWING DIAGNOSIS: No VTE patient discharged on overlapping Therapy?: Yes
--- NOTE | 2018-10-27 18:35 | PDOC PROGRESS REPORT ---
Subjective Progress Note for:: 10/26/18 Subjective:: No acute events overnight. Reason For Visit: ACUTE HYPOXIC RESPIRATORY FAILURE, FLUID Physical Exam Vital Signs: Temp Pulse Resp BP Pulse Ox 97.3 F 52 L 18 137/55 H 97 10/27/18 11:08 10/27/18 11:08 10/27/18 11:08 10/27/18 11:08 10/27/18 11:08 Intake & Output 10/26/18 10/27/18 10/28/18 06:59 06:59 06:59 Intake Total 1951 1708 Output Total 2150 1150 Balance -199 558 Weight 113.9 kg 112.9 kg General appearance: PRESENT: no acute distress, well-developed, well-nourished Respiratory exam: PRESENT: clear to auscultation nesha. ABSENT: rales, rhonchi, wheezes Cardiovascular exam: PRESENT: RRR. ABSENT: diastolic murmur, rubs, systolic murmur GI/Abdominal exam: PRESENT: normal bowel sounds, soft. ABSENT: distended, guarding, mass, organolmegaly, rebound, tenderness Results Laboratory Results: 10/25/18 05:50 10/27/18 06:06 10/27/18 06:06 Sodium 138.5 Potassium 4.0 Chloride 101 Carbon Dioxide 26 Anion Gap 12 BUN 89 H Creatinine 5.07 H Est GFR ( Amer) 14 L Est GFR (Non-Af Amer) 11 L Glucose 97 Calcium 8.9 Impressions: Chest X-Ray 10/26/18 06:00 IMPRESSION: Small to moderate bilateral pleural effusions are present, better visualized than on prior portable chest film 10/22/2018. Consolidation of both lung bases atelectasis versus pneumonia, similar compared to 10/22/2018 Assessment & Plan - Diagnosis (1) Acute and chronic respiratory failure with hypoxia Is this a current diagnosis for this admission?: Yes Plan: Improved with diuresis. Nightly BiPAP/CPAP. (2) Acute on chronic diastolic CHF (congestive heart failure) Is this a current diagnosis for this admission?: Yes Plan: Likely due to noncompliance. Moderate improvement with diuresis. Volume restriction, strict in and out. (3) Anemia in chronic kidney disease (CKD) Is this a current diagnosis for this admission?: Yes Plan: Stable, supportive transfusions. (4) CKD (chronic kidney disease), stage IV Is this a current diagnosis for this admission?: Yes Plan: Kidney function returned to baseline. Nonoliguric did not have any uremic symptoms did not receive any renal replacement therapy on this admission. His Lasix was increased during this admission with good response. He must follow-up with his nephrology as outpatient as soon as possible. (5) Hypertension Qualifiers: Hypertension type: essential hypertension Qualified Code(s): I10 - Essential (primary) hypertension Is this a current diagnosis for this admission?: Yes Plan: Restart home meds. Controlled. (6) Obstructive sleep apnea Is this a current diagnosis for this admission?: Yes Plan: Nocturnal BiPAP.
== END 2018-10-27 11:55 | disposition home or self-care (01) | DRG 189 ==
LOC: ER 23:03 → EH 10-23 01:12 → 3S 10-23 03:17
PROVIDERS: ADMIT Internal Medicine; ATTEND Internal Medicine
PROC: 5A09457 Assistance with Respiratory Ventilation, 24-96 Consecutive Hours, Continuous Positive Airway Pressure (ICD-10-PCS; principal; 2018-10-23)
DX: J96.21 Acute and chronic respiratory failure with hypoxia (principal); I50.33 Acute on chronic diastolic (congestive) heart failure; I13.0 Hypertensive heart and chronic kidney disease with heart failure and stage 1 through stage 4 chronic kidney disease, or unspecified chronic kidney disease; N18.4 Chronic kidney disease, stage 4 (severe); E11.22 Type 2 diabetes mellitus with diabetic chronic kidney disease; D63.1 Anemia in chronic kidney disease; G47.33 Obstructive sleep apnea (adult) (pediatric); K76.0 Fatty (change of) liver, not elsewhere classified; I25.10 Atherosclerotic heart disease of native coronary artery without angina pectoris; E78.5 Hyperlipidemia, unspecified; I73.9 Peripheral vascular disease, unspecified; Z79.82 Long term (current) use of aspirin; Z79.899 Other long term (current) drug therapy; I25.2 Old myocardial infarction; Z87.891 Personal history of nicotine dependence; Z91.018 Allergy to other foods
CPT/HCPCS: 36415; 36600; 71045; 71046; 80048; 80053; 82803; 82962; 83735; 83880; 84100; 85025; 85027; 93005; 93010; 94640; 94660; 96365; 96375; 99285; J1644; J1815; J1940; J2930; J3475; J3490; J7030; J7620

== ENCOUNTER → 2018-11-05 | Outpatient (CLI) | payer MEDICARE, BC, OTHER ==
[2018-11-05 12:24] LABS: MEAN CORPUSCULAR HEMOGLOBIN 34.2 pg (27.0-33.4); MEAN CORPUSCULAR HGB CONC 34.4 g/dL (32.0-36.0); MEAN CORPUSCULAR VOLUME 99 fl (80-97); PLATELET COUNT 214 10^3/uL (150-450); RED BLOOD COUNT 2.92 10^6/uL (4.35-5.55); RED CELL DISTRIBUTION WIDTH 14.6 % (11.5-14.0); WHITE BLOOD COUNT 6.4 10^3/uL (4.0-10.5)
[2018-11-05 12:30] LABS: APPEARANCE,URINE CLEAR; BILIRUBIN,URINE NEGATIVE (NEGATIVE); COLOR,URINE STRAW; GLUCOSE, URINE NEGATIVE (NEGATIVE); KETONES,URINE NEGATIVE (NEGATIVE); LEUKOCYTE ESTERASE,URINE NEGATIVE (NEGATIVE); NITRITE,URINE NEGATIVE (NEGATIVE); PROTEIN,URINE 100 mg/dL (NEGATIVE); URINE SPECIFIC GRAVITY 1.012; UROBILINOGEN,URINE NEGATIVE mg/dL (<2.0)
[2018-11-05 12:59] LABS: ANION GAP 14 (5-19); BLOOD UREA NITROGEN 108 mg/dL (7-20); CALCIUM 8.4 mg/dL (8.4-10.2); CARBON DIOXIDE 23 mmol/L (22-30); CHLORIDE 103 mmol/L (98-107); GLUCOSE 96 mg/dL (75-110); POTASSIUM 4.7 mmol/L (3.6-5.0); SODIUM 140.3 mmol/L (137-145)
== END ==
LOC: OD 11:19
PROVIDERS: ATTEND Physician Assistant Medical
DX: I12.9 Hypertensive chronic kidney disease with stage 1 through stage 4 chronic kidney disease, or unspecified chronic kidney disease (principal); N18.4 Chronic kidney disease, stage 4 (severe); E87.5 Hyperkalemia
CPT/HCPCS: 36415; 80048; 81001; 85027

== ENCOUNTER → 2018-11-18 | Outpatient (CLI) | payer MEDICARE, BC, OTHER ==
[2018-11-18 12:17] LABS: HEMATOCRIT 31.3 % (37.9-51.0); HEMOGLOBIN 10.8 g/dL (13.5-17.0); MEAN CORPUSCULAR HEMOGLOBIN 34.8 pg (27.0-33.4); MEAN CORPUSCULAR HGB CONC 34.5 g/dL (32.0-36.0); MEAN CORPUSCULAR VOLUME 101 fl (80-97); PLATELET COUNT 204 10^3/uL (150-450); RED BLOOD COUNT 3.09 10^6/uL (4.35-5.55); WHITE BLOOD COUNT 6.4 10^3/uL (4.0-10.5)
[2018-11-18 12:33] LABS: ANION GAP 10 (5-19); BLOOD UREA NITROGEN 84 mg/dL (7-20); CALCIUM 8.4 mg/dL (8.4-10.2); CARBON DIOXIDE 21 mmol/L (22-30); CHLORIDE 104 mmol/L (98-107); GLUCOSE 94 mg/dL (75-110); IRON(TIBC) 104.1 ug/dL (49-181); SODIUM 135.4 mmol/L (137-145)
== END ==
LOC: OD 11:26
PROVIDERS: ATTEND Physician Assistant Medical
DX: I12.0 Hypertensive chronic kidney disease with stage 5 chronic kidney disease or end stage renal disease (principal); N18.5 Chronic kidney disease, stage 5; E87.5 Hyperkalemia; E11.22 Type 2 diabetes mellitus with diabetic chronic kidney disease
CPT/HCPCS: 36415; 80048; 82728; 83540; 83550; 85027

== ENCOUNTER → 2018-12-10 | Outpatient (CLI) | payer MEDICARE, BC, OTHER ==
[2018-12-10 11:54] LABS: HEMATOCRIT 31.4 % (37.9-51.0); MEAN CORPUSCULAR HEMOGLOBIN 35.2 pg (27.0-33.4); MEAN CORPUSCULAR HGB CONC 35.1 g/dL (32.0-36.0); MEAN CORPUSCULAR VOLUME 100 fl (80-97); PLATELET COUNT 238 10^3/uL (150-450); RED BLOOD COUNT 3.13 10^6/uL (4.35-5.55); RED CELL DISTRIBUTION WIDTH 14.4 % (11.5-14.0); WHITE BLOOD COUNT 6.4 10^3/uL (4.0-10.5)
[2018-12-10 11:59] LABS: APPEARANCE,URINE CLEAR; BILIRUBIN,URINE NEGATIVE (NEGATIVE); COLOR,URINE STRAW; GLUCOSE, URINE 50 mg/dL (NEGATIVE); KETONES,URINE NEGATIVE (NEGATIVE); LEUKOCYTE ESTERASE,URINE NEGATIVE (NEGATIVE); NITRITE,URINE NEGATIVE (NEGATIVE); PROTEIN,URINE 100 mg/dL (NEGATIVE); URINE SPECIFIC GRAVITY 1.009; UROBILINOGEN,URINE NEGATIVE mg/dL (<2.0)
[2018-12-10 12:26] LABS: ANION GAP 13 (5-19); BLOOD UREA NITROGEN 95 mg/dL (7-20); CARBON DIOXIDE 21 mmol/L (22-30); CHLORIDE 104 mmol/L (98-107); GLUCOSE 85 mg/dL (75-110); PHOSPHORUS 7.6 mg/dL (2.5-4.5); SODIUM 137.8 mmol/L (137-145)
== END ==
LOC: OD 11:21
PROVIDERS: ATTEND Physician Assistant Medical
DX: I12.9 Hypertensive chronic kidney disease with stage 1 through stage 4 chronic kidney disease, or unspecified chronic kidney disease (principal); N18.5 Chronic kidney disease, stage 5; E87.5 Hyperkalemia; D64.9 Anemia, unspecified
CPT/HCPCS: 36415; 80048; 81001; 83970; 84100; 85027

== ENCOUNTER → 2019-01-08 | Outpatient (CLI) | payer MEDICARE, BC, OTHER ==
[2019-01-08 13:24] LABS: HEMATOCRIT 26.8 % (37.9-51.0); HEMOGLOBIN 9.3 g/dL (13.5-17.0); MEAN CORPUSCULAR HEMOGLOBIN 34.6 pg (27.0-33.4); MEAN CORPUSCULAR HGB CONC 34.6 g/dL (32.0-36.0); MEAN CORPUSCULAR VOLUME 100 fl (80-97); PLATELET COUNT 203 10^3/uL (150-450); RED BLOOD COUNT 2.68 10^6/uL (4.35-5.55); RED CELL DISTRIBUTION WIDTH 13.5 % (11.5-14.0); WHITE BLOOD COUNT 5.5 10^3/uL (4.0-10.5)
[2019-01-08 13:38] LABS: URINE CREATININE 81.5 mg/dL (22-328)
[2019-01-08 13:49] LABS: ANION GAP 10 (5-19); BLOOD UREA NITROGEN 78 mg/dL (7-20); CALCIUM 8.5 mg/dL (8.4-10.2); CARBON DIOXIDE 23 mmol/L (22-30); CHLORIDE 104 mmol/L (98-107); GLUCOSE 87 mg/dL (75-110); PHOSPHORUS 6.1 mg/dL (2.5-4.5); POTASSIUM 5.4 mmol/L (3.6-5.0); SODIUM 137.3 mmol/L (137-145)
[2019-01-08 13:51] LABS: UR PRO/CREAT RATIO RESULT 4.4 mg/mg (0.0-0.2); URINE PROTEIN 357.3 mg/dL (<12)
== END ==
LOC: OD 12:36
PROVIDERS: ATTEND Physician Assistant Medical
DX: I12.9 Hypertensive chronic kidney disease with stage 1 through stage 4 chronic kidney disease, or unspecified chronic kidney disease (principal); N18.5 Chronic kidney disease, stage 5; R60.9 Edema, unspecified; E87.5 Hyperkalemia
CPT/HCPCS: 36415; 80048; 82570; 83735; 84100; 84156; 85027

== ENCOUNTER → 2019-01-15 | Outpatient (CLI) | payer MEDICARE, BC, OTHER | LOC: OD 14:37 | PROVIDERS: ATTEND Physician Assistant Medical | DX: E11.22 Type 2 diabetes mellitus with diabetic chronic kidney disease (principal); I12.9 Hypertensive chronic kidney disease with stage 1 through stage 4 chronic kidney disease, or unspecified chronic kidney disease; N18.3 Chronic kidney disease, stage 3 (moderate); D63.1 Anemia in chronic kidney disease; E83.39 Other disorders of phosphorus metabolism | CPT/HCPCS: 36415; 82728; 83540; 83550 ==

== ENCOUNTER → 2019-02-19 | Outpatient (CLI) | payer MEDICARE, BC, OTHER ==
[2019-02-19 13:33] LABS: HEMATOCRIT 28.8 % (37.9-51.0); HEMOGLOBIN 10.1 g/dL (13.5-17.0); MEAN CORPUSCULAR HEMOGLOBIN 33.8 pg (27.0-33.4); MEAN CORPUSCULAR HGB CONC 35.2 g/dL (32.0-36.0); MEAN CORPUSCULAR VOLUME 96 fl (80-97); PLATELET COUNT 225 10^3/uL (150-450); RED BLOOD COUNT 2.99 10^6/uL (4.35-5.55); WHITE BLOOD COUNT 9.2 10^3/uL (4.0-10.5)
[2019-02-19 13:47] LABS: ANION GAP 12 (5-19); BLOOD UREA NITROGEN 87 mg/dL (7-20); CARBON DIOXIDE 27 mmol/L (22-30); CHLORIDE 95 mmol/L (98-107); GLUCOSE 95 mg/dL (75-110); PHOSPHORUS 6.4 mg/dL (2.5-4.5); POTASSIUM 4.5 mmol/L (3.6-5.0); SODIUM 133.5 mmol/L (137-145)
[2019-02-19 13:50] LABS: APPEARANCE,URINE CLEAR; BILIRUBIN,URINE NEGATIVE (NEGATIVE); COLOR,URINE YELLOW; GLUCOSE, URINE 50 mg/dL (NEGATIVE); KETONES,URINE NEGATIVE (NEGATIVE); LEUKOCYTE ESTERASE,URINE NEGATIVE (NEGATIVE); NITRITE,URINE NEGATIVE (NEGATIVE); PROTEIN,URINE >=500 mg/dL (NEGATIVE); URINE SPECIFIC GRAVITY 1.011; UROBILINOGEN,URINE NEGATIVE mg/dL (<2.0)
[2019-02-19 14:07] LABS: URINE CREATININE 144.3 mg/dL (22-328)
[2019-02-19 14:12] LABS: CALCIUM 13.1 mg/dL (8.4-10.2)
== END ==
LOC: OD 13:11
PROVIDERS: ATTEND Physician Assistant Medical
DX: I12.9 Hypertensive chronic kidney disease with stage 1 through stage 4 chronic kidney disease, or unspecified chronic kidney disease (principal); N18.3 Chronic kidney disease, stage 3 (moderate); E11.22 Type 2 diabetes mellitus with diabetic chronic kidney disease; D63.1 Anemia in chronic kidney disease; E83.39 Other disorders of phosphorus metabolism
CPT/HCPCS: 36415; 80048; 81001; 82570; 83970; 84100; 84156; 85027

== ENCOUNTER → 2019-02-26 | Outpatient (CLI) | payer MEDICARE, BC, OTHER ==
[2019-02-26 15:21] LABS: ANION GAP 10 (5-19); BLOOD UREA NITROGEN 82 mg/dL (7-20); CALCIUM 11.5 mg/dL (8.4-10.2); CARBON DIOXIDE 25 mmol/L (22-30); CHLORIDE 101 mmol/L (98-107); GLUCOSE 96 mg/dL (75-110); POTASSIUM 4.5 mmol/L (3.6-5.0); SODIUM 136.4 mmol/L (137-145)
== END ==
LOC: OD 14:22
PROVIDERS: ATTEND Physician Assistant Medical
DX: N18.5 Chronic kidney disease, stage 5 (principal); I12.9 Hypertensive chronic kidney disease with stage 1 through stage 4 chronic kidney disease, or unspecified chronic kidney disease; R60.9 Edema, unspecified; E87.5 Hyperkalemia; D64.9 Anemia, unspecified
CPT/HCPCS: 36415; 80048; 83970

== ENCOUNTER → 2019-03-29 | Outpatient (CLI) | payer MEDICARE, BC, OTHER ==
[2019-03-29 14:11] LABS: HEMATOCRIT 25.5 % (37.9-51.0); HEMOGLOBIN 8.6 g/dL (13.5-17.0); MEAN CORPUSCULAR HEMOGLOBIN 32.4 pg (27.0-33.4); MEAN CORPUSCULAR HGB CONC 33.8 g/dL (32.0-36.0); MEAN CORPUSCULAR VOLUME 96 fl (80-97); PLATELET COUNT 317 10^3/uL (150-450); RED BLOOD COUNT 2.66 10^6/uL (4.35-5.55); RED CELL DISTRIBUTION WIDTH 13.9 % (11.5-14.0); WHITE BLOOD COUNT 6.7 10^3/uL (4.0-10.5)
[2019-03-29 14:19] LABS: ANION GAP 17 (5-19); BLOOD UREA NITROGEN 102 mg/dL (7-20); CALCIUM 8.8 mg/dL (8.4-10.2); CARBON DIOXIDE 20 mmol/L (22-30); CHLORIDE 98 mmol/L (98-107); GLUCOSE 93 mg/dL (75-110); IRON(TIBC) 50.4 ug/dL (49-181); POTASSIUM 4.5 mmol/L (3.6-5.0); SODIUM 135.1 mmol/L (137-145)
== END ==
LOC: OD 12:54
PROVIDERS: ATTEND Physician Assistant Medical
DX: I12.0 Hypertensive chronic kidney disease with stage 5 chronic kidney disease or end stage renal disease (principal); N18.5 Chronic kidney disease, stage 5; E11.22 Type 2 diabetes mellitus with diabetic chronic kidney disease; R60.9 Edema, unspecified; E87.5 Hyperkalemia; D63.1 Anemia in chronic kidney disease
CPT/HCPCS: 36415; 80048; 82728; 83540; 83550; 85027

== ENCOUNTER 2019-04-06 12:40 | Outpatient (CLI) | payer MEDICARE, BC, OTHER ==
[~2019-04-06 12:40] MED LIST: FERRIC CARBOXYMALTOSE 750 MG in NORMAL SALINE 250 ML IV PRN
[2019-04-06 13:17] VITALS: BP 110/35
== END 2019-04-06 14:05 | disposition home or self-care (01) ==
LOC: II 12:40 → 5TH 12:42 → II 14:05
PROVIDERS: ATTEND Internal Medicine Nephrology
PROC: 3E033GC Introduction of Other Therapeutic Substance into Peripheral Vein, Percutaneous Approach (ICD-10-PCS; principal; 2019-04-06)
DX: D50.8 Other iron deficiency anemias (principal)
CPT/HCPCS: 96365; J7050; J1439

== ENCOUNTER → 2019-04-30 | Outpatient (CLI) | payer MEDICARE, BC, OTHER ==
[2019-04-30 11:19] LABS: HEMATOCRIT 22.9 % (37.9-51.0); MEAN CORPUSCULAR HEMOGLOBIN 33.3 pg (27.0-33.4); MEAN CORPUSCULAR HGB CONC 34.2 g/dL (32.0-36.0); MEAN CORPUSCULAR VOLUME 98 fl (80-97); PLATELET COUNT 224 10^3/uL (150-450); RED BLOOD COUNT 2.35 10^6/uL (4.35-5.55); RED CELL DISTRIBUTION WIDTH 15.7 % (11.5-14.0)
[2019-04-30 11:23] LABS: APPEARANCE,URINE CLEAR; BILIRUBIN,URINE NEGATIVE (NEGATIVE); COLOR,URINE STRAW; GLUCOSE, URINE 50 mg/dL (NEGATIVE); KETONES,URINE NEGATIVE (NEGATIVE); LEUKOCYTE ESTERASE,URINE NEGATIVE (NEGATIVE); NITRITE,URINE NEGATIVE (NEGATIVE); PROTEIN,URINE 100 mg/dL (NEGATIVE); URINE SPECIFIC GRAVITY 1.009; UROBILINOGEN,URINE NEGATIVE mg/dL (<2.0)
[2019-04-30 11:26] LABS: HEMOGLOBIN 7.8 g/dL (13.5-17.0)
[2019-04-30 11:37] LABS: ANION GAP 14 (5-19); BLOOD UREA NITROGEN 94 mg/dL (7-20); CALCIUM 9.1 mg/dL (8.4-10.2); CARBON DIOXIDE 22 mmol/L (22-30); CHLORIDE 102 mmol/L (98-107); GLUCOSE 98 mg/dL (75-110); IRON(TIBC) 72.3 ug/dL (49-181); POTASSIUM 4.6 mmol/L (3.6-5.0); SODIUM 138.3 mmol/L (137-145)
== END ==
LOC: OD 10:49
PROVIDERS: ATTEND Physician Assistant Medical
DX: I12.0 Hypertensive chronic kidney disease with stage 5 chronic kidney disease or end stage renal disease (principal); N18.5 Chronic kidney disease, stage 5; E11.22 Type 2 diabetes mellitus with diabetic chronic kidney disease; D63.1 Anemia in chronic kidney disease; E87.5 Hyperkalemia; R60.9 Edema, unspecified; N40.0 Benign prostatic hyperplasia without lower urinary tract symptoms
CPT/HCPCS: 36415; 80048; 81001; 82728; 83540; 83550; 83970; 84100; 84153; 85027

== ENCOUNTER → 2019-06-25 | Outpatient (CLI) | payer MEDICARE, BC, OTHER ==
[2019-06-25 14:58] LABS: HEMATOCRIT 25.6 % (37.9-51.0); HEMOGLOBIN 8.5 g/dL (13.5-17.0); MEAN CORPUSCULAR HGB CONC 33.2 g/dL (32.0-36.0); MEAN CORPUSCULAR VOLUME 100 fl (80-97); PLATELET COUNT 227 10^3/uL (150-450); RED BLOOD COUNT 2.57 10^6/uL (4.35-5.55); RED CELL DISTRIBUTION WIDTH 15.3 % (11.5-14.0); WHITE BLOOD COUNT 5.2 10^3/uL (4.0-10.5)
[2019-06-25 15:03] LABS: APPEARANCE,URINE CLEAR; BILIRUBIN,URINE NEGATIVE (NEGATIVE); COLOR,URINE YELLOW; GLUCOSE, URINE NEGATIVE (NEGATIVE); KETONES,URINE NEGATIVE (NEGATIVE); LEUKOCYTE ESTERASE,URINE NEGATIVE (NEGATIVE); NITRITE,URINE NEGATIVE (NEGATIVE); PROTEIN,URINE 100 mg/dL (NEGATIVE); URINE SPECIFIC GRAVITY 1.009; UROBILINOGEN,URINE NEGATIVE mg/dL (<2.0)
[2019-06-25 15:14] LABS: ANION GAP 11 (5-19); BLOOD UREA NITROGEN 89 mg/dL (7-20); CALCIUM 8.9 mg/dL (8.4-10.2); CARBON DIOXIDE 24 mmol/L (22-30); CHLORIDE 102 mmol/L (98-107); GLUCOSE 91 mg/dL (75-110); PHOSPHORUS 8.1 mg/dL (2.5-4.5); POTASSIUM 4.9 mmol/L (3.6-5.0)
[2019-06-25 15:20] LABS: ALBUMIN 3.5 g/dL (3.5-5.0); ANION GAP 11 (5-19); BLOOD UREA NITROGEN 89 mg/dL (7-20); CALCIUM 8.9 mg/dL (8.4-10.2); CARBON DIOXIDE 24 mmol/L (22-30); CHLORIDE 102 mmol/L (98-107); PHOSPHORUS 8.1 mg/dL (2.5-4.5); POTASSIUM 4.9 mmol/L (3.6-5.0)
[2019-06-25 15:26] LABS: GLUCOSE 91 mg/dL (75-110); UR PRO/CREAT RATIO RESULT 1.7 mg/mg (0.0-0.2)
[2019-06-25 15:32] LABS: URINE CREATININE 73.2 mg/dL (22-328); URINE PROTEIN 122.4 mg/dL (<12)
== END ==
LOC: OD 14:18
PROVIDERS: ATTEND Internal Medicine Nephrology
DX: E11.22 Type 2 diabetes mellitus with diabetic chronic kidney disease (principal); I12.9 Hypertensive chronic kidney disease with stage 1 through stage 4 chronic kidney disease, or unspecified chronic kidney disease; N18.5 Chronic kidney disease, stage 5; D63.1 Anemia in chronic kidney disease; R60.9 Edema, unspecified; E87.5 Hyperkalemia
CPT/HCPCS: 36415; 80048; 80069; 81001; 82570; 83970; 84100; 84156; 85027

== ENCOUNTER → 2019-07-02 | Outpatient (CLI) | payer MEDICARE, BC, OTHER ==
[2019-07-02 13:13] LABS: HEMATOCRIT 26.4 % (37.9-51.0); HEMOGLOBIN 8.9 g/dL (13.5-17.0); MEAN CORPUSCULAR HGB CONC 33.5 g/dL (32.0-36.0); MEAN CORPUSCULAR VOLUME 98 fl (80-97); PLATELET COUNT 220 10^3/uL (150-450); RED BLOOD COUNT 2.68 10^6/uL (4.35-5.55); RED CELL DISTRIBUTION WIDTH 15.1 % (11.5-14.0); WHITE BLOOD COUNT 5.8 10^3/uL (4.0-10.5)
[2019-07-02 13:37] LABS: IRON(TIBC) 64.1 ug/dL (49-181)
== END ==
LOC: OD 12:38
PROVIDERS: ATTEND Physician Assistant Medical
DX: N18.5 Chronic kidney disease, stage 5 (principal); D63.1 Anemia in chronic kidney disease
CPT/HCPCS: 36415; 82728; 83540; 83550; 85027

== ENCOUNTER 2019-07-05 12:02 | Inpatient (IN) | payer MEDICARE, BC, OTHER ==
--- NOTE | 2019-07-05 12:54 | ER Document Report ---
ED Medical Screen (RME) - General Chief Complaint: Shortness Of Breath Stated Complaint: BREATHING PROBLEMS Time Seen by Provider: 07/05/19 12:40 Primary Care Provider: GEMINI MELENDEZ MD [Primary Care Provider] - Follow up as needed Notes: HPI: 68-year-old male with a history of CHF, end-stage renal disease about to start dialysis for the first time and has had a fistula placed recently, hx of COPD on 3 L home oxygen here for increased shortness of breath and dyspnea on exertion for the last 2 days. States the last time this happened he was told he was fluid overloaded. He has had a mild cough. Denies chest pain. no fevers. No changes in diet or medication. Denies any other complaints at this time. ROS neg to include 10 systems, unless mentioned in the hpi. PE:>>>> PHYSICAL_EXAM: GENERAL_APPEARANCE: well_nourished, alert, cooperative, no_acute_distress, mild_obvious_discomfort. pleasant, obese elderly white male, with mild increased work of breathing, speaking in full but shortened sentences, Smiling, in no sign of pain VITALS: reviewed, see vital signs table. HEAD: no_swelling\tenderness on the head. normocephalic. atraumatic. no gaona signs. no raccoons eyes. EYES: PERRL, EOMI, conjunctiva_clear. NOSE: no_nasal_discharge. MOUTH: (-)decreased moisture. THROAT: no_tonsilar_inflammation, no_airway_obstruction. no_lymphadenopathy NECK: supple, no_neck_tenderness, full rom. full strength. BACK: no_back_tenderness. CHEST_WALL: no_chest_tenderness. no overlying skin changes LUNGS: no_wheezing, ctab (-)accessory muscle use, good air exchange bilateral. HEART: normal_rate, normal_rhythm, ABDOMEN: normal_BS, soft, no_abd_tenderness, (-)guarding, (-)rebound, no distension or peritoneal signs. no cva ttp EXTREMITIES: strength 5/5 in all_extremities, good pulses in all_extremities, no_swelling\tenderness in the extremities, no_edema. full rom. normal gait. good pulses. brisk cap refill. good hand area safety manager. NEURO: motor and sensation intact, SKIN: warm, dry, good_color, no_rash. no cyanosis MENTAL_STATUS: speech_clear, oriented_X_3, normal_affect, responds_appropriately to questions. MDM: I have ordered labs and initial work-up and patient will be transferred to the main ER for further work-up. I have greeted and performed a rapid initial assessment of this patient. A comprehensive ED assessment and evaluation of the patient, analysis of test results and completion of medical decision making process will be conducted by an additional ED providers. Documentation achieved through voice recording which my lead to some occasional accidental typographical errors. Extensive efforts have been made to proof read documentation to make sure these are the least as possible Temp Pulse Resp BP Pulse Ox 07/05/19 12:05 97.4 F 58 L 21 H 154/46 H 91 L Category Date Time Status Continuous Cardiac Monitoring (ED) CONTINUOUS Care 07/05/19 12:48 Ordered EKG Documentation STAT Care 07/05/19 12:48 Ordered EKG Documentation STAT Care 07/05/19 12:49 Ordered Lock [Saline Lock (ED)] NOW Care 07/05/19 12:49 Ordered Oxygen (ED) STAT 95 Care 07/05/19 12:49 Ordered CHEST 2 VIEWS [RAD] Stat Exams 07/05/19 12:48 Ordered CBC WITH DIFF [HEME] Stat Lab 07/05/19 12:40 Ordered COMPREHENSIVE METABOLIC PANEL [CHEM] Stat Lab 07/05/19 12:40 Ordered CREATINE KINASE MB [CHEM] Stat Lab 07/05/19 12:40 Ordered CREATINE KINASE [CHEM] Stat Lab 07/05/19 12:40 Ordered LIPASE [CHEM] Stat Lab 07/05/19 12:47 Ordered MAGNESIUM [CHEM] Stat Lab 07/05/19 12:49 Ordered NT PRO BNP [CHEM] Stat Lab 07/05/19 12:47 Ordered PARTIAL THROMBOPLASTIN TIME [COAG] Stat Lab 07/05/19 12:47 Ordered PROTHROMBIN TIME/INR [COAG] Stat Lab 07/05/19 12:47 Ordered TROPONIN I [CHEM] Stat Lab 07/05/19 12:47 Ordered URINALYSIS [URIN] Stat Lab 07/05/19 12:48 Uncollected EKG ER ONLY [ER] Stat Oth 07/05/19 Ordered TRAVEL OUTSIDE OF THE [place] IN LAST 30 DAYS: No - Related Data Allergies/Adverse Reactions: strawberry [[place]] Allergy (Verified 07/05/19 12:09) Past Medical History - Social History Chew tobacco use (# tins/day): No Frequency of alcohol use: None Drug Abuse: None - Past Medical History Cardiac Medical History: Reports: Hx Congestive Heart Failure, Hx Coronary Artery Disease, Hx Heart Attack - 1991, Hx Hypercholesterolemia, Hx Hypertension, Hx Peripheral Vascular Disease - bilateral carotid endarterectomy. Pulmonary Medical History: Reports: Hx COPD - on 4L oxygen as needed., Hx Sleep Apnea - on CPAP and 4 L home oxygen. Endocrine Medical History: Reports: Hx Diabetes Mellitus Type 2 - diet controlled. Renal/ Medical History: Reports: Hx End Stage Renal Disease. Denies: Hx Peritoneal Dialysis Psychiatric Medical History: Denies: Hx Depression Past Surgical History: Reports: Hx Cardiac Catheterization - 1991 AND 2001, Hx Orthopedic Surgery - left 5th toe amputation due to infection., Hx Vascular Surgery - B/L carotid endarterectomy., Other - right eye stent placed (since glaucoma). - Immunizations Hx Diphtheria, Pertussis, Tetanus Vaccination: Yes History of Influenza Vaccine for 08/2017 - 01/2018 Season: Yes Physical Exam - Vital signs Vitals: Temp Pulse Resp BP Pulse Ox 97.4 F 58 L 21 H 154/46 H 91 L 07/05/19 12:05 07/05/19 12:05 07/05/19 12:05 07/05/19 12:05 07/05/19 12:05 Course - Vital Signs Vital signs: Temp Pulse Resp BP Pulse Ox 97.4 F 58 L 21 H 154/46 H 91 L 07/05/19 12:05 07/05/19 12:05 07/05/19 12:05 07/05/19 12:05 07/05/19 12:05 Doctor's Discharge - Discharge Referrals: GEMINI MELENDEZ MD [Primary Care Provider] - Follow up as needed
[2019-07-05 13:20] LABS: ABSOLUTE BASOPHILS # (AUTO) 0.1 10^3/uL (0.0-0.2); ABSOLUTE EOSINOPHILS # (AUTO) 0.1 10^3/uL (0.0-0.6); ABSOLUTE LYMPHOCYTES (AUTO) 0.5 10^3/uL (0.5-4.7); ABSOLUTE MONOCYTES (AUTO) 0.9 10^3/uL (0.1-1.4); ABSOLUTE NEUT (AUTO) 6.5 10^3/uL (1.7-8.2); BASOPHILS % (AUTO) 1.4 % (0-2); HEMATOCRIT 28.4 % (37.9-51.0); HEMOGLOBIN 9.3 g/dL (13.5-17.0); LYMPHOCYTES % (AUTO) 6.6 % (13-45); MEAN CORPUSCULAR HEMOGLOBIN 32.4 pg (27.0-33.4); MEAN CORPUSCULAR HGB CONC 32.9 g/dL (32.0-36.0); MEAN CORPUSCULAR VOLUME 99 fl (80-97); MONOCYTES % (AUTO) 11.2 % (3-13); PLATELET COUNT 214 10^3/uL (150-450); RED BLOOD COUNT 2.88 10^6/uL (4.35-5.55); RED CELL DISTRIBUTION WIDTH 15.4 % (11.5-14.0); SEGMENTED NEUTROPHILS % (AUTO) 79.8 % (42-78); TOTAL CELLS COUNTED % (AUTO) 100 %; WHITE BLOOD COUNT 8.1 10^3/uL (4.0-10.5)
--- NOTE | 2019-07-05 13:26 | RADIOLOGY REPORT (SQ) ---
EXAM DESCRIPTION: CHEST 2 VIEWS COMPLETED DATE/TIME: 07/05/2019 1:02 pm REASON FOR STUDY: sob COMPARISON: 03/20/2019 EXAM PARAMETERS: NUMBER OF VIEWS: two views TECHNIQUE: Digital Frontal and Lateral radiographic views of the chest acquired. RADIATION DOSE: NA LIMITATIONS: none FINDINGS: LUNGS AND PLEURA: Small bilateral pleural effusions. MEDIASTINUM AND HILAR STRUCTURES: No masses or contour abnormalities. HEART AND VASCULAR STRUCTURES: Cardiomegaly. No pulmonary edema. BONES: No acute findings. HARDWARE: None in the chest. OTHER: No other significant finding. IMPRESSION: Cardiomegaly with small pleural effusions. No pulmonary edema. TECHNICAL DOCUMENTATION: JOB ID: [id number] [employer]- All Rights Reserved Reading location - IP/workstation name: [email or web address]
[2019-07-05 13:38] LABS: ALBUMIN 3.8 g/dL (3.5-5.0); ALKALINE PHOSPHATASE 72 U/L (38-126); ANION GAP 12 (5-19); ASPARTATE AMINO TRANSFERASE 20 U/L (17-59); BILIRUBIN,DIRECT 0.6 mg/dL (0.0-0.4); BILIRUBIN,TOTAL 0.7 mg/dL (0.2-1.3); BLOOD UREA NITROGEN 96 mg/dL (7-20); CARBON DIOXIDE 24 mmol/L (22-30); CHLORIDE 102 mmol/L (98-107); GLUCOSE 88 mg/dL (75-110); INTERNATIONAL RATION (INR) 1.12; POTASSIUM 4.9 mmol/L (3.6-5.0); PROTHROMBIN TIME 14.5 SEC (11.4-15.4); TOTAL PROTEIN 6.7 g/dL (6.3-8.2)
[2019-07-05 13:39] LABS: PARTIAL THROMBOPLASTIN TIME 36.2 SEC (23.5-35.8)
[2019-07-05 13:50] LABS: CREATINE KINASE MB 0.35 ng/mL (<4.55); TROPONIN I 0.014 ng/mL
[2019-07-05] MEDS ORDERED: FUROSEMIDE INJ/PF 40 MG/4 ML SDV IV ONE (14:37)
--- NOTE | 2019-07-05 14:52 | ER Document Report ---
ED Respiratory Problem - General Chief Complaint: Shortness Of Breath Stated Complaint: BREATHING PROBLEMS Time Seen by Provider: 07/05/19 12:40 Primary Care Provider: GEMINI MELENDEZ MD [Primary Care Provider] - Follow up as needed Notes: Patient is here because he is having a hard time breathing and cannot take a deep breath patient has a history of COPD, CHF, and renal failure. He recently had a shunt placed in his left arm in preparation for dialysis. Patient says that his breathing has worsened over the past 2 to 3 days. Patient is on home oxygen at 3 L all the time. He also has a CPAP machine at home. In the past, when he is gotten this way, he has been admitted to the hospital and given IV Lasix. His most recent admission here was in February of this year. Denies having any chest pain. No recent illness or fever. Patient saw both his primary care provider and local transportation escort, Dr. Henao, in their offices last week. PMH: IDDM, hypertension, CHF. TRAVEL OUTSIDE OF THE [place] IN LAST 30 DAYS: No - Related Data Allergies/Adverse Reactions: strawberry [[place]] Allergy (Verified 07/05/19 12:09) Past Medical History - Social History Smoking Status: Never Smoker Chew tobacco use (# tins/day): No Frequency of alcohol use: None Drug Abuse: None Family History: Reviewed & Not Pertinent Patient has suicidal ideation: No Patient has homicidal ideation: No - Past Medical History Cardiac Medical History: Reports: Hx Congestive Heart Failure, Hx Coronary Arter y Disease, Hx Heart Attack - 1991, Hx Hypercholesterolemia, Hx Hypertension, Hx Peripheral Vascular Disease - bilateral carotid endarterectomy. Pulmonary Medical History: Reports: Hx COPD - on 4L oxygen as needed., Hx Sleep Apnea - on CPAP and 4 L home oxygen. Endocrine Medical History: Reports: Hx Diabetes Mellitus Type 2 - diet controlled. Renal/ Medical History: Reports: Hx End Stage Renal Disease - stage 5 Past Surgical History: Reports: Hx Cardiac Catheterization - 1991 AND 2001, Hx Orthopedic Surgery - left 5th toe amputation due to infection., Hx Vascular Surgery - B/L carotid endarterectomy., Other - right eye stent placed (since glaucoma). - Immunizations Hx Diphtheria, Pertussis, Tetanus Vaccination: Yes Hx Pneumococcal Vaccination: 11/24/12 Review of Systems - Review of Systems Notes: REVIEW OF SYSTEMS: CONSTITUTIONAL : Denies fever. EENT: Denies eye, ear, nose or mouth or throat pain or other symptoms. CARDIOVASCULAR: Denies chest pain. No swelling of lower extremity. RESPIRATORY: See HPI. GASTROINTESTINAL: Denies abdominal pain or nausea, vomiting, or diarrhea. GENITOURINARY: Denies difficulty or painful urinating, urinary frequency, blood in urine. MUSCULOSKELETAL: Denies back or neck pain. Denies joint pain or swelling. SKIN: Denies rash or skin lesions. NEUROLOGICAL: Denies LOC or altered mental status. Denies headache. Denies sensory loss or motor deficits. ALL OTHER SYSTEMS REVIEWED AND NEGATIVE. REVIEW OF SYSTEMS: Physical Exam - Vital signs Vitals: Temp Pulse Resp BP Pulse Ox 97.4 F 58 L 21 H 154/46 H 91 L 07/05/19 12:05 07/05/19 12:05 07/05/19 12:05 07/05/19 12:05 07/05/19 12:05 Interpretation: Normal Notes: PHYSICAL EXAMINATION: GENERAL: Well-appearing, in no acute distress. O2 at 3 L. Vital signs are all essentially normal. Not hypoxic. HEAD: Atraumatic, normocephalic. EYES: Pupils equal round and reactive to light, extraocular movements intact. ENT: oropharynx clear without exudates. Moist mucous membranes. NECK: Normal range of motion, supple. LUNGS: Breath sounds with bilateral basilar rales. HEART: Regular rate and rhythm without murmurs. Heart rate at the bedside 60 by me. ABDOMEN: Obese. Soft, nontender. No guarding or rebound. No masses. No masses felt. No bruits heard. BACK: No tenderness throughout entire back. EXTREMITIES: Normal range of motion without pain. Kidney dialysis shunt in the left arm with thrill palpable. NEUROLOGICAL: Normal speech, gait not tested because patient too short of [place] th effort.. Normal sensory, motor, and reflex exams. Awake, alert, and oriented x3. Cranial nerves normal. PSYCH: Normal mood, normal affect. SKIN: Warm, dry, no rashes. Course - Re-evaluation Re-evalutation: 07/05/19 16:04 Patient was assessed and hospitalist was called to admit the patient. I did consult with Dr. Henao, his transportation escort and he agrees the patient can be taken care of at this hospital. - Vital Signs Vital signs: Temp Pulse Resp BP Pulse Ox 97.4 F 58 L 20 140/44 H 94 07/05/19 12:05 07/05/19 12:05 07/05/19 15:01 07/05/19 15:01 07/05/19 15:01 - Laboratory Result Diagrams: 07/05/19 13:10 07/05/19 13:10 Laboratory results interpreted by me: 07/05/19 07/05/19 07/05/19 13:10 13:10 13:10 RBC 2.88 L Hgb 9.3 L Hct 28.4 L MCV 99 H RDW 15.4 H Seg Neutrophils % 79.8 H Lymphocytes % 6.6 L APTT BUN 96 H Creatinine 6.61 H Est GFR ( Amer) 10 L Est GFR (Non-Af Amer) 8 L Direct Bilirubin 0.6 H Creatine Kinase 24 L NT-Pro-B Natriuret Pep 07/05/19 07/05/19 13:10 13:10 RBC Hgb Hct MCV RDW Seg Neutrophils % Lymphocytes % APTT 36.2 H BUN Creatinine Est GFR ( Amer) Est GFR (Non-Af Amer) Direct Bilirubin Creatine Kinase NT-Pro-B Natriuret Pep 00486 H - Diagnostic Test Radiology results interpreted by me: 07/05/19 14:52 Chest x-ray shows cardiomegaly and small pleural effusions bilaterally. - EKG Interpretation by Wy EKG shows normal: Sinus rhythm Rate: Bradycardia Rhythm: NSR, APC's Voltage: Decreased voltage Discharge - Discharge Clinical Impression: Congestive heart failure, End stage renal disease, Obstructive sleep apnea Condition: Stable Disposition: ADMITTED INPATIENT Admitting Provider: Hospitalist [facility] Admitted: Telemetry Referrals: GEMINI MELENDEZ MD [Primary Care Provider] - Follow up as needed
[2019-07-05] MEDS ORDERED: PROMETHAZINE HCL INJ 25 MG/1 ML VIAL IV PRN (16:10)
[2019-07-05] MEDS ORDERED: MAG HYDROX/AL HYDROX/SIMETH SUSP 30 ML UDCUP PO PRN (16:10)
[2019-07-05] MEDS ORDERED: ACETAMINOPHEN 325 MG TABLET PO PRN (16:10)
[2019-07-05] MEDS ORDERED: OXYCODONE-ACETAMINOPHEN 5-325 MG TABLET PO PRN (16:10)
[2019-07-05] MEDS ORDERED: ONDANSETRON 4 MG TAB.RAPDIS PO PRN (16:10)
--- NOTE | 2019-07-05 16:26 | Progress Note Acknowledgement ---
Progress Note Acknowledgement Progess Note Acknowledgement: I, the undersigned member of the medical staff with appropriate privileges and with supervisory authority over [ PAC ], a dependent practice allied health professional, acknowledge that I have reviewed the progress notes entered on this patient, and in my professional judgment believe that the assessment made and/or any care evidenced was appropriate
--- NOTE | 2019-07-05 16:50 | PDOC H&P ---
History of Present Illness Admission Date/PCP: GEMINI MELENDEZ MD Patient is being admitted 07/05/2019 CHF exacerbation History of Present Illness: APURVA ELLSWORTH is a 68 year old male comes in with a one-week history of worsening of breath. States it is really been bad for the last 3 days patient actually saw his primary care provider and his human resources services specialist last week but did not mention that his breathing was getting worse. Today he called his primary care provider's office and the nurse told him to go to the emergency room. Patient was admitted to the hospital back in February he says for the same thing. Patient states that after 3 to 4 days of IV Lasix he was discharged home. Patient has been dealing with end-stage renal disease for the last year and a half but has avoided dialysis. Patient has a fistula in his arm for the last year now. Because of because of the fistula clotting he had a coil procedure done 3 weeks ago to open it up. Her graph patient has multiple comorbidities including coronary artery disease, diabetes ,hypertension, neuropathy has had an [place]. Patient comes in now for IV diuresis. Past Medical History Cardiac Medical History: Reports: Congestive Heart Failure, Coronary Artery Disease, Myocardial Infarction - 1991, Hyperlipidema, Hypertension, Peripheral Vascular Disease - bilateral carotid endarterectomy. Pulmonary Medical History: Reports: Chronic Obstructive Pulmonary Disease (COPD) - on 4L oxygen as needed., Sleep Apnea - on CPAP and 4 L home oxygen. Endocrine Medical History: Reports: Diabetes Mellitus Type 2 - diet controlled. Renal/ Medical History: Reports: End Stage Renal Disease - stage 5 Psychiatric Medical History: Denies: Depression Past Surgical History Past Surgical History: Reports: Cardiac Catheterization - 1991 AND 2001, Orth opedic Surgery - left 5th toe amputation due to infection., Vascular Surgery - B/L carotid endarterectomy., Other - right eye stent placed (since glaucoma). Social History Smoking Status: Never Smoker Frequency of Alcohol Use: Occasional Hx Recreational Drug Use: No Drugs: None Hx Prescription Drug Abuse: No - Advance Directive Resuscitation Status: Full Code Family History Family History: Reviewed & Not Pertinent Parental Family History Reviewed: No Children Family History Reviewed: No Sibling(s) Family History Reviewed.: No Medication/Allergy Allergies/Adverse Reactions: strawberry [[place]] Allergy (Verified 07/05/19 12:09) Review of Systems Constitutional: ABSENT: chills, fever(s), headache(s), weight gain, weight loss Eyes: ABSENT: visual disturbances Cardiovascular: PRESENT: as per HPI. ABSENT: chest pain, dyspnea on exertion, edema, orthropnea, palpitations Respiratory: PRESENT: as per HPI Gastrointestinal: PRESENT: as per HPI Psychiatric: PRESENT: as per HPI Physical Exam Vital Signs: Temp Pulse Resp BP Pulse Ox 97.4 F 58 L 20 140/44 H 94 07/05/19 12:05 07/05/19 12:05 07/05/19 15:01 07/05/19 15:01 07/05/19 15:01 Intake & Output 07/04/19 07/05/19 07/06/19 06:59 06:59 06:59 Weight 109.2 kg General appearance: PRESENT: no acute distress, well-developed, well-nourished, other - Patient talks in full sentences, is in no respiratory distress Head exam: PRESENT: atraumatic, normocephalic Respiratory exam: PRESENT: decreased breath sounds - Basilar Cardiovascular exam: PRESENT: RRR. ABSENT: diastolic murmur, rubs, systolic murmur Extremities exam: PRESENT: pedal edema - 1+ Neurological exam: PRESENT: alert, awake, oriented to person, oriented to place, oriented to time, oriented to situation, CN II-XII grossly intact, other - Pleasant. ABSENT: motor sensory deficit Psychiatric exam: PRESENT: appropriate affect, normal mood. ABSENT: homicidal ideation, suicidal ideation Additional comments: is in the room and helps with the history Results Laboratory Results: 07/05/19 13:10 07/05/19 13:10 07/05/19 07/05/19 07/05/19 13:10 13:10 13:10 WBC 8.1 RBC 2.88 L Hgb 9.3 L Hct 28.4 L MCV 99 H MCH 32.4 MCHC 32.9 RDW 15.4 H Plt Count 214 Seg Neutrophils % 79.8 H Lymphocytes % 6.6 L Monocytes % 11.2 Eosinophils % 1.0 Basophils % 1.4 Absolute Neutrophils 6.5 Absolute Lymphocytes 0.5 Absolute Monocytes 0.9 Absolute Eosinophils 0.1 Absolute Basophils 0.1 Sodium 137.5 Potassium 4.9 Chloride 102 Carbon Dioxide 24 Anion Gap 12 BUN 96 H Creatinine 6.61 H Est GFR ( Amer) 10 L Est GFR (Non-Af Amer) 8 L Glucose 88 Calcium 10.0 Magnesium 2.2 Total Bilirubin 0.7 AST 20 Alkaline Phosphatase 72 Total Protein 6.7 Albumin 3.8 Lipase 159.2 07/05/19 07/05/19 13:10 13:10 Creatine Kinase 24 L CK-MB (CK-2) 0.35 Troponin I 0.014 NT-Pro-B Natriuret Pep 10001 H Impressions: Chest X-Ray 07/05/19 12:48 IMPRESSION: Cardiomegaly with small pleural effusions. No pulmonary edema. Assessment and Plan - Diagnosis (1) Congestive heart failure Is this a current diagnosis for this admission?: Yes Plan: Patient normally takes Lasix 40 mg daily, patient's BUN is 96 creatinine 6.61 is his baseline. BNP is 11,800 previous admission it was up to 12,000. Patient will get IV Lasix initially twice daily over this may need to be increased,. Chest x-ray shows small pleural effusions but no pulmonary edema (2) End stage renal disease Is this a current diagnosis for this admission?: Yes Plan: Patient has been trying to avoid dialysis now for the last year and a half. The shunt has been in place for 1 year he does work with his human resources services specialist Dr. Javier Henao on a very frequent basis (3) Diabetes mellitus type 2 in obese Is this a current diagnosis for this admission?: Yes Plan: Patient has no medication listed his home meds for diabetes, patient may be diet controlled (4) Dyspnea Is this a current diagnosis for this admission?: Yes Plan: Patient's O2 saturation in the emergency room went from a low of 91 to a high of 97. Looks like his baseline would be about 94,. Per the record however it says that he uses oxygen at 3 L as well as CPAP machine. She is not using oxygen now in the ED (5) Hypertension Qualifiers: Hypertension type: essential hypertension Qualified Code(s): I10 - Essential (primary) hypertension Is this a current diagnosis for this admission?: Yes Plan: Patient's blood pressures in the emergency room go from 160/54 down to 140/44 patient's medications include on a Raymond 0.1 mg 3 times daily Toprol XL 50 mg daily. Patient also takes Apresoline 25 mg twice daily for his hypertension (6) Obesity (BMI 30-39.9) Is this a current diagnosis for this admission?: Yes Plan: Patient's weight will be checked daily both for obesity as well as CHF. Weight in the emergency room is 109 kg - Time Time Spent with patient: 35 or more minutes - Patient will be put on his regular home medications with the addition of crease diuretics patient will have labs checked daily
[2019-07-05] MEDS: CLONIDINE HCL 0.1 MG TABLET PO SCH (17:30)
[2019-07-05] MEDS: HYDRALAZINE HCL 25 MG TABLET PO SCH (17:30)
[2019-07-05 18:09] LABS: INTERNATIONAL RATION (INR) 1.14; PROTHROMBIN TIME 14.6 SEC (11.4-15.4)
[2019-07-05 19:22] LABS: APPEARANCE,URINE CLEAR; BILIRUBIN,URINE NEGATIVE (NEGATIVE); COLOR,URINE STRAW; GLUCOSE, URINE NEGATIVE (NEGATIVE); KETONES,URINE NEGATIVE (NEGATIVE); LEUKOCYTE ESTERASE,URINE NEGATIVE (NEGATIVE); NITRITE,URINE NEGATIVE (NEGATIVE); PROTEIN,URINE 100 mg/dL (NEGATIVE); URINE SPECIFIC GRAVITY 1.008; UROBILINOGEN,URINE NEGATIVE mg/dL (<2.0)
[2019-07-05] MEDS: HEPARIN SOD (PORCINE) 5,000 UNIT/ML 1 ML VIAL SUBCUT SCH (21:10)
[2019-07-05] MEDS: FAMOTIDINE 20 MG TABLET PO SCH (21:11)
[2019-07-06] MEDS: CLONIDINE HCL 0.1 MG TABLET PO SCH ×3 (02:14→17:07)
[2019-07-06 06:18] LABS: ABSOLUTE BASOPHILS # (AUTO) 0.1 10^3/uL (0.0-0.2); ABSOLUTE EOSINOPHILS # (AUTO) 0.1 10^3/uL (0.0-0.6); ABSOLUTE LYMPHOCYTES (AUTO) 0.8 10^3/uL (0.5-4.7); ABSOLUTE MONOCYTES (AUTO) 0.8 10^3/uL (0.1-1.4); ABSOLUTE NEUT (AUTO) 4.2 10^3/uL (1.7-8.2); ABSOLUTE RETICS # 0.059 10^6/uL (0.028-0.122); EOSINOPHILS % (AUTO) 1.6 % (0-6); HEMATOCRIT 24.8 % (37.9-51.0); HEMOGLOBIN 8.3 g/dL (13.5-17.0); LYMPHOCYTES % (AUTO) 13.6 % (13-45); MEAN CORPUSCULAR HEMOGLOBIN 32.8 pg (27.0-33.4); MEAN CORPUSCULAR HGB CONC 33.4 g/dL (32.0-36.0); MEAN CORPUSCULAR VOLUME 98 fl (80-97); MONOCYTES % (AUTO) 14.1 % (3-13); PLATELET COUNT 194 10^3/uL (150-450); RED BLOOD COUNT 2.53 10^6/uL (4.35-5.55); RETICULOCYTE COUNT (AUTO) 2.35 % (0.66-2.85); SEGMENTED NEUTROPHILS % (AUTO) 69.7 % (42-78); TOTAL CELLS COUNTED % (AUTO) 100 %
[2019-07-06] MEDS: HYDRALAZINE HCL 25 MG TABLET PO SCH ×2 (06:28→17:11)
[2019-07-06] MEDS: HEPARIN SOD (PORCINE) 5,000 UNIT/ML 1 ML VIAL SUBCUT SCH ×3 (06:29→21:16)
[2019-07-06 06:35] LABS: ANION GAP 12 (5-19); BLOOD UREA NITROGEN 95 mg/dL (7-20); CALCIUM 9.3 mg/dL (8.4-10.2); CARBON DIOXIDE 22 mmol/L (22-30); CHLORIDE 101 mmol/L (98-107); IRON(TIBC) 31.3 ug/dL (49-181); POTASSIUM 4.7 mmol/L (3.6-5.0)
[2019-07-06 07:23] LABS: GLUCOSE 67 mg/dL (75-110)
[2019-07-06 07:45] LABS: FOLATE 4.96 ng/mL (>2.76)
[2019-07-06] MEDS: METOPROLOL SUCCINATE 50 MG TAB.SR.24H PO SCH (08:14)
--- NOTE | 2019-07-06 09:44 | EKG REPORT ---
SEVERITY:- OTHERWISE NORMAL ECG - SINUS RHYTHM ATRIAL PREMATURE COMPLEX LOW VOLTAGE IN FRONTAL LEADS : Confirmed by: Ruddy Gaona 06-Jul-2019 09:43:16
--- NOTE | 2019-07-06 09:44 | EKG REPORT ---
SEVERITY:- ABNORMAL ECG - SINUS RHYTHM WITH APC LOW VOLTAGE IN FRONTAL LEADS : Confirmed by: Ruddy Gaona 06-Jul-2019 09:43:05
[2019-07-06] MEDS: ATORVASTATIN CALCIUM 40 MG TABLET PO SCH (10:13)
[2019-07-06] MEDS: ASPIRIN 325 MG TABLET PO SCH (10:13)
[2019-07-06] MEDS: FAMOTIDINE 20 MG TABLET PO SCH ×2 (10:13→21:16)
[2019-07-06] MEDS: DOCUSATE SODIUM 100 MG CAPSULE PO SCH (10:13)
[2019-07-06] MEDS ORDERED: FUROSEMIDE INJ/PF 20 MG/2 ML SDV IV SCH (13:00)
[2019-07-06] MEDS ORDERED: FERRIC CARBOXYMALTOSE INJ 750 MG/15 ML VIAL IV ONE (14:00)
[2019-07-06] MEDS ORDERED: FERRIC CARBOXYMALTOSE 750 MG in NORMAL SALINE 100 ML IV ONE (14:00)
[2019-07-06] MEDS: AMLODIPINE BESYLATE 5 MG TABLET PO SCH (14:25)
--- NOTE | 2019-07-06 15:15 | PDOC CONSULTATION ---
Consultation Consult Date: 07/06/19 Provider Consulted: Arielle ABDALLA Consult reason:: CKD 5 History of Present Illness Admission Date/PCP: 07/05/19 16:32 GEMINI MELENDEZ MD History of Present Illness: APURVA ELLSWORTH is a 68 year old male with history of long-standing complicated diabetes mellitus, hypertension, CAD comes in with history of progressive shortness of breath over a week's duration. Initially he had seen some pedal edema. Evaluations in the ER revealed that he could possibly have early CHF/COPD exacerbation. He was treated with nebulizers and IV Lasix and currently feels a whole lot better. Currently he is on BiPAP because he has been sleepy.He is easily arousable and answers questions appropriately. His is at the bedside. She is happy with the present improvement he has made so far since being admitted. He is on a low-sodium diet. He has been managing his diet so well that he has lost approximately 50 pounds in the last 1 year. Patient has had a similar admission in February of this year when he was hospitalized to [facility] and responded very well.Patient has a fistula in his arm for the last year now. Because of because of the fistula clotting he had a coil procedure done 3 weeks ago to open it up.I did review the echocardiogram done in early 2017 which has shown diastolic heart failure/mild to moderate aortic stenosis.He believes that he possibly had an echocardiogram done in [facility] when he was hospitalized in February 2019. He does not have a tile professional.Patient has a good appetite without any history of nausea vomiting. He makes good urine output. No complaints of any skin lesions or pruritus. Labs and medications were reviewed. Creatinine is stable at around 6-7 as compared to labs that was done recently in my office.Patient is chronic anemia of renal disease and has been getting Procrit shots in our office. He did receive IV iron 3 - 4 months ago. Past Medical History Cardiac Medical History: Reports: Coronary Artery Disease, Hyperlipidemia, Hypertension-primary, Myocardial Infarction - 1991, Peripheral Vascular Disease - bilateral carotid endarterectomy. Pulmonary Medical History: Reports: Chronic Obstructive Pulmonary Disease (COPD) - on 4L oxygen as needed., Sleep Apnea - on CPAP and 4 L home oxygen. Endocrine Medical History: Reports: Diabetes Mellitus Type 2 - diet controlled. Renal/ Medical History: Reports: Chronic Kidney Disease Stage V, Secondary Hyperparathyroidism Psychiatric Medical History: Denies: Depression Hematology Medical History: Reports Anemia of Chronic Kidney Disease Past Surgical History Past Surgical History: Reports: Cardiac Catheterization - 1991 AND 2001, Renate lysis Access Surgery AVF - 2016, Orthopedic Surgery - left 5th toe amputation due to infection., Vascular Surgery - B/L carotid endarterectomy., Other - right eye stent placed (since glaucoma). Social History Smoking Status: Former Smoker Frequency of Alcohol Use: Rare Hx Recreational Drug Use: No Drugs: None Hx Prescription Drug Abuse: No - Advance Directive Resuscitation Status: Full Code Family History Parental Family History Reviewed: Yes - Negative for ESRD Children Family History Reviewed: No Sibling(s) Family History Reviewed.: No Medication/Allergy Home Medications: Amlodipine Besylate [Norvasc 5 mg Tablet] 5 mg PO 0807/05/19 Aspirin [Aspirin 325 mg Tablet] 325 mg PO 199907/05/19 Atorvastatin Calcium [Lipitor 20 mg Tablet] 20 mg PO 199907/05/19 Calcitriol [Rocaltrol 0.25 Mcg Capsule] 0[place] [address]/05/19 Calcium Acetate [Phoslo 667 Mg Capsule] 667 mg PO AC 07/05/19 Clonidine HCl [Catapres 0.1 mg Tablet] 0.1 mg PO Q8 07/05/19 Cyanocobalamin (Vitamin B-12) [Vitamin B-12 1000 Mcg Tablet] 1,000 mcg SL 199907/05/19 Ergocalciferol (Vitamin D2) [Drisdol 50,000 Unit (1.25MG) Capsule] 50,000 unit PO MO@2200 07/05/19 Febuxostat [Uloric 40 mg Tablet] [place] [address]07/05/19 Ferrous Sulfate [Feosol 325 mg Tablet] 325 mg PO 199907/05/19 Furosemide [Lasix 40 mg Tablet] 40 mg PO MOTUTHFRSA@0800 07/05/19 Hydralazine HCl [Apresoline 50 mg Tablet] 50 mg PO 08,199907/05/19 Metoprolol Succinate [Toprol Xl 50 mg Tab.sr] 50 mg PO 0807/05/19 Tamsulosin HCl [Flomax 0.4 mg Cap.sr] 0.4 mg PO 199907/05/19 Allergies/Adverse Reactions: strawberry [[place]] Allergy (Verified 07/05/19 12:09) Review of Systems Constitutional: PRESENT: fatigue. ABSENT: anorexia, fever(s), headache(s), night sweats, weakness Nose, Mouth, and Throat: ABSENT: mouth pain, sore throat Cardiovascular: PRESENT: dyspnea on exertion, edema. ABSENT: chest pain, orthropnea, palpitations Respiratory: PRESENT: dyspnea. ABSENT: cough, hemoptysis Gastrointestinal: PRESENT: constipation - Chronic.. ABSENT: diarrhea, dysphagia, heartburn, nausea, vomiting Genitourinary: ABSENT: difficulty urinating, dysuria, hematuria Musculoskeletal: ABSENT: deformity, joint swelling, muscle weakness Integumentary: ABSENT: erythema, lesions, pruritus, rash Neurological: ABSENT: abnormal movements, abnormal speech, confusion, convulsions, focal weakness, frequent falls Hematologic/Lymphatic: ABSENT: easy bruising, lymphadenopathy Physical Exam Vital Signs: Temp Pulse Resp BP Pulse Ox 98.5 F 51 L 21 H 141/46 H 95 07/06/19 11:42 07/06/19 11:42 07/06/19 11:42 07/06/19 11:42 07/06/19 11:42 Intake & Output 07/05/19 07/06/19 07/07/19 06:59 06:59 06:59 Intake Total 120 640 Output Total 600 Balance 120 40 Weight 105.8 kg General appearance: PRESENT: no acute distress Eye exam: PRESENT: EOMI, PERRLA Ear exam: PRESENT: normal external ear exam Mouth exam: PRESENT: moist, neck supple Neck exam: ABSENT: lymphadenopathy, meningismus, tenderness, thyromegaly, tracheal deviation Respiratory exam: PRESENT: clear to auscultation nesha, decreased breath sounds. ABSENT: crackles Cardiovascular exam: PRESENT: +S1, +S2, systolic murmur Vascular exam: PRESENT: other - He has left upper arm AV fistula that was recently occluded and he had a procedure done on it by the vascular surgeon in [place].However current evaluations reveals a palpable pulse without a bruit indicating that is not working again. GI/Abdominal exam: PRESENT: normal bowel sounds, soft. ABSENT: organomegaly, tenderness Extremities exam: ABSENT: pedal edema Neurological exam: PRESENT: alert, awake, oriented to person, oriented to place Psychiatric exam: PRESENT: appropriate affect Skin exam: ABSENT: erythema, mottled, rash Results Laboratory Results: 07/06/19 04:46 07/06/19 04:46 07/05/19 07/06/19 07/06/19 19:07 04:46 04:46 WBC 6.0 RBC 2.53 L Hgb 8.3 L Hct 24.8 L MCV 98 H MCH 32.8 MCHC 33.4 RDW 15.0 H Plt Count 194 Seg Neutrophils % 69.7 Lymphocytes % 13.6 Monocytes % 14.1 H Eosinophils % 1.6 Basophils % 1.0 Absolute Neutrophils 4.2 Absolute Lymphocytes 0.8 Absolute Monocytes 0.8 Absolute Eosinophils 0.1 Absolute Basophils 0.1 Retic Count (auto) 2.35 Absolute Retic 0.059 Sodium 135.3 L Potassium 4.7 Chloride 101 Carbon Dioxide 22 Anion Gap 12 BUN 95 H Creatinine 6.23 H Est GFR ( Amer) 11 L Est GFR (Non-Af Amer) 9 L Glucose 67 L Calcium 9.3 Magnesium 2.2 Iron 31.3 L TIBC 279 % Saturation 11 Ferritin 94.30 Vitamin B12 > 1000.0 H Folate 4.96 Urine Color STRAW Urine Appearance CLEAR Urine pH 5.0 Ur Specific [place] 1.008 Urine Protein 100 H Urine Glucose (UA) NEGATIVE Urine Ketones NEGATIVE Urine Blood NEGATIVE Urine Nitrite NEGATIVE Ur Leukocyte Esterase NEGATIVE Urine WBC (Auto) 1 Urine RBC (Auto) 0 07/05/19 07/05/19 07/06/19 13:10 13:10 04:46 Creatine Kinase 24 L CK-MB (CK-2) 0.35 Troponin I 0.014 NT-Pro-B Natriuret Pep 90708 H 03832 H Impressions: Chest X-Ray 07/05/19 12:48 IMPRESSION: Cardiomegaly with small pleural effusions. No pulmonary edema. Assessment & Plan - Diagnosis (1) Acute on chronic diastolic CHF (congestive heart failure) Plan: I believe he could have had a mild element of diastolic congestive heart failure with acute COPD that seems to respond with IV Lasix and nebulizers. Currently back to baseline. (2) Anemia in chronic kidney disease (CKD) Plan: He has been getting Procrit shots in the office. However he is iron deficient and therefore we will plan to give him IV iron infusion while he is here in the hospital. Follow this up with Procrit shots in the office. Discussed this with Dr. Rodriguez the hospitalist. (3) CKD (chronic kidney disease), stage V Plan: Presently stable. No signs of uremia. No acute indications for renal replacement initiation of the moment. We will continue to monitor him for that requirement as an outpatient. Discussed this at length with the patient and his who understands. Besides all of this he has a nonworking left upper arm AV fistula. I am going to get an ultrasound Doppler on this and then re refer him to the vascular surgeon in [place] for further redo. (4) COPD (chronic obstructive pulmonary disease) Plan: Currently stable after nebulizer treatments in the ER. (5) Diabetes mellitus type 2 in obese Is this a current diagnosis for this admission?: Yes Plan: Under good control. Currently being managed with just diet only. (6) Essential hypertension Plan: Controlled. (7) AV fistula occlusion Plan: We will get ultrasound Doppler of the same.
[2019-07-06] MEDS: CALCIUM ACETATE 667 MG CAPSULE PO SCH (17:10)
--- NOTE | 2019-07-06 18:06 | PDOC PROGRESS REPORT ---
Subjective Progress Note for:: 07/06/19 Subjective:: This is a 68-year-old male with past medical history of CAD, diabetes mellitus, hypertension and ESRD currently not on dialysis yet who presented with increasing shortness of breath. He was admitted for possible CHF exacerbation. He was started on IV Lasix. No acute event overnight. Patient says that he did get significant relief with IV Lasix. Upon encounter, he appears comfortable. He says his shortness of breath is much better and he is returning to his baseline. Denies chest pain. He is diuresing well. Reason For Visit: CHF EXACERBATION,DIABETES,HYPERTENSION,NEPHROPATHY Physical Exam Vital Signs: Temp Pulse Resp BP Pulse Ox 98.5 F 51 L 17 132/36 H 98 07/06/19 15:00 07/06/19 15:00 07/06/19 15:00 07/06/19 15:00 07/06/19 15:00 Intake & Output 07/05/19 07/06/19 07/07/19 06:59 06:59 06:59 Intake Total 120 640 Output Total 600 Balance 120 40 Weight 233 lb 3.985 oz General appearance: PRESENT: no acute distress, well-developed, well-nourished Head exam: PRESENT: atraumatic, normocephalic Eye exam: PRESENT: conjunctiva pink, EOMI, PERRLA. ABSENT: scleral icterus Ear exam: PRESENT: normal external ear exam Mouth exam: PRESENT: moist, tongue midline Neck exam: ABSENT: carotid bruit, JVD, lymphadenopathy, thyromegaly Respiratory exam: PRESENT: rhonchi. ABSENT: rales, wheezes Cardiovascular exam: PRESENT: RRR. ABSENT: diastolic murmur, rubs, systolic murmur Pulses: PRESENT: normal dorsalis pedis pul GI/Abdominal exam: PRESENT: normal bowel sounds, soft. ABSENT: distended, guarding, mass, organolmegaly, rebound, tenderness Rectal exam: PRESENT: deferred Extremities exam: PRESENT: full ROM. ABSENT: calf tenderness, clubbing, pedal edema Neurological exam: PRESENT: alert, awake, oriented to person, oriented to place, oriented to time, oriented to situation, CN II-XII grossly intact. ABSENT: motor sensory deficit Results Laboratory Results: 07/06/19 04:46 07/06/19 04:46 08/11/1107/06/19 07/06/19 19:07 04:46 04:46 WBC 6.0 RBC 2.53 L Hgb 8.3 L Hct 24.8 L MCV 98 H MCH 32.8 MCHC 33.4 RDW 15.0 H Plt Count 194 Seg Neutrophils % 69.7 Lymphocytes % 13.6 Monocytes % 14.1 H Eosinophils % 1.6 Basophils % 1.0 Absolute Neutrophils 4.2 Absolute Lymphocytes 0.8 Absolute Monocytes 0.8 Absolute Eosinophils 0.1 Absolute Basophils 0.1 Retic Count (auto) 2.35 Absolute Retic 0.059 Sodium 135.3 L Potassium 4.7 Chloride 101 Carbon Dioxide 22 Anion Gap 12 BUN 95 H Creatinine 6.23 H Est GFR ( Amer) 11 L Est GFR (Non-Af Amer) 9 L Glucose 67 L Calcium 9.3 Magnesium 2.2 Iron 31.3 L TIBC 279 % Saturation 11 Ferritin 94.30 Vitamin B12 > 1000.0 H Folate 4.96 Urine Color STRAW Urine Appearance CLEAR Urine pH 5.0 Ur Specific [place] 1.008 Urine Protein 100 H Urine Glucose (UA) NEGATIVE Urine Ketones NEGATIVE Urine Blood NEGATIVE Urine Nitrite NEGATIVE Ur Leukocyte Esterase NEGATIVE Urine WBC (Auto) 1 Urine RBC (Auto) 0 07/05/19 07/05/19 07/06/19 13:10 13:10 04:46 Creatine Kinase 24 L CK-MB (CK-2) 0.35 Troponin I 0.014 NT-Pro-B Natriuret Pep 12531 H 47045 H Impressions: Chest X-Ray 07/05/19 12:48 IMPRESSION: Cardiomegaly with small pleural effusions. No pulmonary edema. Assessment and Plan - Diagnosis (1) Acute on chronic diastolic CHF (congestive heart failure) Is this a current diagnosis for this admission?: Yes Plan: Improved. Decrease IV Lasix to 20 mg daily. (2) End stage renal disease Is this a current diagnosis for this admission?: Yes Plan: Nephrology following. Patient is making adequate urine. No indication for dialysis at the moment. (3) Obstructive sleep apnea Is this a current diagnosis for this admission?: Yes Plan: CPAP at night or during sleep. (4) COPD (chronic obstructive pulmonary disease) Is this a current diagnosis for this admission?: Yes Plan: Breathing treatments as needed. (5) Diabetes mellitus type 2 in obese Is this a current diagnosis for this admission?: Yes (6) Essential hypertension Is this a current diagnosis for this admission?: Yes (7) AV fistula occlusion Is this a current diagnosis for this admission?: Yes - Time Time Spent with patient: 25-34 minutes
[2019-07-07] MEDS: CLONIDINE HCL 0.1 MG TABLET PO SCH ×2 (02:40→09:20)
[2019-07-07] MEDS: HYDRALAZINE HCL 25 MG TABLET PO SCH (06:09)
[2019-07-07] MEDS: HEPARIN SOD (PORCINE) 5,000 UNIT/ML 1 ML VIAL SUBCUT SCH (06:16)
[2019-07-07 07:48] LABS: ABSOLUTE BASOPHILS # (AUTO) 0.1 10^3/uL (0.0-0.2); ABSOLUTE EOSINOPHILS # (AUTO) 0.1 10^3/uL (0.0-0.6); ABSOLUTE LYMPHOCYTES (AUTO) 0.9 10^3/uL (0.5-4.7); ABSOLUTE NEUT (AUTO) 4.8 10^3/uL (1.7-8.2); BASOPHILS % (AUTO) 1.1 % (0-2); EOSINOPHILS % (AUTO) 1.3 % (0-6); HEMATOCRIT 25.3 % (37.9-51.0); HEMOGLOBIN 8.5 g/dL (13.5-17.0); MEAN CORPUSCULAR HEMOGLOBIN 33.1 pg (27.0-33.4); MEAN CORPUSCULAR HGB CONC 33.6 g/dL (32.0-36.0); MEAN CORPUSCULAR VOLUME 99 fl (80-97); MONOCYTES % (AUTO) 13.9 % (3-13); PLATELET COUNT 207 10^3/uL (150-450); RED BLOOD COUNT 2.57 10^6/uL (4.35-5.55); RED CELL DISTRIBUTION WIDTH 15.3 % (11.5-14.0); SEGMENTED NEUTROPHILS % (AUTO) 70.7 % (42-78); TOTAL CELLS COUNTED % (AUTO) 100 %; WHITE BLOOD COUNT 6.8 10^3/uL (4.0-10.5)
[2019-07-07 08:08] LABS: ANION GAP 13 (5-19); BLOOD UREA NITROGEN 95 mg/dL (7-20); CALCIUM 9.5 mg/dL (8.4-10.2); CARBON DIOXIDE 22 mmol/L (22-30); CHLORIDE 100 mmol/L (98-107); GLUCOSE 73 mg/dL (75-110); POTASSIUM 4.6 mmol/L (3.6-5.0)
[2019-07-07] MEDS: METOPROLOL SUCCINATE 50 MG TAB.SR.24H PO SCH (09:20)
[2019-07-07] MEDS: CALCIUM ACETATE 667 MG CAPSULE PO SCH ×2 (09:28→11:46)
[2019-07-07] MEDS: FAMOTIDINE 20 MG TABLET PO SCH (09:28)
[2019-07-07] MEDS: DOCUSATE SODIUM 100 MG CAPSULE PO SCH (09:29)
[2019-07-07] MEDS: AMLODIPINE BESYLATE 5 MG TABLET PO SCH (09:29)
[2019-07-07] MEDS: ASPIRIN 325 MG TABLET PO SCH (09:29)
[2019-07-07] MEDS: ATORVASTATIN CALCIUM 40 MG TABLET PO SCH (09:29)
[2019-07-07 11:27] VITALS: BP 162/52
--- NOTE | 2019-07-07 13:05 | XCELERA REPORT ---
[address] [address] Upper Extremity Venous Evaluation Name: APURVA ELLSWORTH Age: 68 yrs Gender: Male : 1950 Patient Status: Inpatient Patient Location: [address] [place] [address] Study Date: 07/07/2019 10:35 AM Procedure: Unilateral duplex scan of the left upper extremity veins was performed, including responses to compression and other maneuvers. Reason For Study: EVALUATE AV FISTULA ON LEFT UPPER ARM Ordering Physician: AYE KING Performed By: Geri Rivera Left Sided Venous Evaluation Normal vessel filling wall to wall, compression and augmentation as well as Colour flow down to the forearm veins. A patent Arterio venous fissula based in the Cephalic vein is noted. Interpretation Summary No obstruction or Thrombosis is seen in the left upper extremity veins. A patent AV fistula is noted. : AYE KING > Lonnie Pineda
--- NOTE | 2019-07-08 16:59 | PDOC DISCHARGE SUMMARY ---
General - Admit/Disc Date/PCP Admission Date/Primary Care Provider: 07/05/19 16:32 GEMINI MELENDEZ MD Discharge Date: 07/07/19 - Discharge Diagnosis (1) Acute on chronic diastolic CHF (congestive heart failure) Is this a current diagnosis for this admission?: Yes (2) End stage renal disease Is this a current diagnosis for this admission?: Yes (3) Obstructive sleep apnea Is this a current diagnosis for this admission?: Yes (4) COPD (chronic obstructive pulmonary disease) Is this a current diagnosis for this admission?: Yes (5) Diabetes mellitus type 2 in obese Is this a current diagnosis for this admission?: Yes (6) Essential hypertension Is this a current diagnosis for this admission?: Yes (7) AV fistula occlusion Is this a current diagnosis for this admission?: Yes - Additional Information Resuscitation Status: Full Code Discharge Activity: Activity As Tolerated, Balance Activity w/Rest, Weigh Daily Home Medications: Amlodipine Besylate [Norvasc 5 mg Tablet] 5 [place] 79907/05/19 Aspirin [Aspirin 325 mg Tablet] 325 mg PO 199907/05/19 Atorvastatin Calcium [Lipitor 20 mg Tablet] 20 mg PO 199907/05/19 Calcitriol [Rocaltrol 0.25 mcg Capsule] 0[place] [address]/05/19 Calcium Acetate [Phoslo 667 mg Capsule] 667 mg PO 07/05/19 Cyanocobalamin (Vitamin B-12) [Vitamin B-12 1000 mcg Tablet] 1,000 mcg SL 199907/05/19 Ergocalciferol (Vitamin D2) [Drisdol 50,000 unit (1.25MG) Capsule] 50,000 unit PO MO@2200 07/05/19 Febuxostat [Uloric 40 mg Tablet] 40 [place] PO 79907/05/19 Ferrous Sulfate [Feosol 325 mg Tablet] 325 mg PO 199907/05/19 Furosemide [Lasix 40 mg Tablet] 40 mg PO MOTUTHFRSA@79907/05/19 Hydralazine HCl [Apresoline 50 mg Tablet] 50 mg PO 08,199907/05/19 Metoprolol Succinate [Toprol Xl 50 mg Tab.sr] 50 [place] PO 79907/05/19 Tamsulosin HCl [Flomax 0.4 mg Cap.sr] 0.4 mg PO 199907/05/19 History of Present Illness History of Present Illness: Admitting hospitalist's H&P: APURVA ELLSWORTH is a 68 year old male comes in with a one-week history of worsening of breath. States it is really been bad for the last 3 days patient actually saw his primary care provider and his hydraulic hammer operator last week but did not mention that his breathing was getting worse. Today he called his primary care provider's office and the nurse told him to go to the emergency room. Patient was admitted to the hospital back in February he says for the same thing. Patient states that after 3 to 4 days of IV Lasix he was discharged home. Patient has been dealing with end-stage renal disease for the last year and a half but has avoided dialysis. Patient has a fistula in his arm for the last y ear now. Because of because of the fistula clotting he had a coil procedure done 3 weeks ago to open it up. His multiple comorbidities include coronary artery disease, diabetes ,hypertension, neuropathy has had an MD. Patient is being admitted for IV diuresis. Hospital Course Hospital Course: This is a 68-year-old male with past medical history of CAD, diabetes mellitus, chronic diastolic heart failure, COPD, hypertension and ESRD currently not on dialysis yet who presented with increasing shortness of breath. He was admitted for possible CHF exacerbation. He was started on IV Lasix. Patient did get significant relief with IV Lasix. He returned to his baseline was also cleared by neurology for discharge. He will be closely following up with his PCP and his hydraulic hammer operator Physical Exam Vital Signs: Temp Pulse Resp BP Pulse Ox 98.4 F 62 20 162/52 H 94 07/07/19 12:51 07/07/19 12:51 07/07/19 12:51 07/07/19 12:51 07/07/19 12:51 Intake & Output 07/07/19 07/08/19 07/09/19 06:59 06:59 06:59 Intake Total 1040 708 Output Total 1900 650 Balance -860 58 Weight 230 lb 9.656 oz General appearance: PRESENT: no acute distress, well-developed, well-nourished Head exam: PRESENT: atraumatic, normocephalic Eye exam: PRESENT: conjunctiva pink, EOMI, PERRLA. ABSENT: scleral icterus Ear exam: PRESENT: normal external ear exam Mouth exam: PRESENT: moist, tongue midline Neck exam: ABSENT: carotid bruit, JVD, lymphadenopathy, thyromegaly Respiratory exam: PRESENT: clear to auscultation nesha. ABSENT: rales, rhonchi, wheezes Cardiovascular exam: PRESENT: RRR. ABSENT: diastolic murmur, rubs, systolic murmur Pulses: PRESENT: normal dorsalis pedis pul GI/Abdominal exam: PRESENT: normal bowel sounds, soft. ABSENT: distended, guarding, mass, organolmegaly, rebound, tenderness Rectal exam: PRESENT: deferred Extremities exam: PRESENT: full ROM. ABSENT: calf tenderness, clubbing, pedal edema Neurological exam: PRESENT: alert, awake, oriented to person, oriented to place, oriented to time, oriented to situation, CN II-XII grossly intact. ABSENT: motor sensory deficit Results Laboratory Results: 07/07/19 06:50 07/07/19 06:50 07/05/19 07/05/19 07/06/19 13:10 13:10 04:46 Creatine Kinase 24 L CK-MB (CK-2) 0.35 Troponin I 0.014 NT-Pro-B Natriuret Pep 86867 H 62693 H 07/07/19 06:50 Creatine Kinase CK-MB (CK-2) Troponin I NT-Pro-B Natriuret Pep 16724 H Impressions: Chest X-Ray 07/05/19 12:48 IMPRESSION: Cardiomegaly with small pleural effusions. No pulmonary edema. Qualifiers - * PATIENT BEING DISCHARGED WITH ANY OF THE FOLLOWING DIAGNOSIS: No Acute Heart Failure - Is this a Heart Failure Patient?: No LVEF < 40%?: No- if no continue to question #3 3. Anticoagulant therapy for permanect/persistent/paraoxysmal Afib or Aflutter: N/A
== END 2019-07-07 13:22 | disposition home or self-care (01) | DRG 291 ==
LOC: ER 12:02 → EH 16:32 → 4S 19:44
PROVIDERS: ADMIT Internal Medicine; ATTEND Internal Medicine
PROC: 5A09457 Assistance with Respiratory Ventilation, 24-96 Consecutive Hours, Continuous Positive Airway Pressure (ICD-10-PCS; principal; 2019-07-05)
DX: I13.2 Hypertensive heart and chronic kidney disease with heart failure and with stage 5 chronic kidney disease, or end stage renal disease (principal); I50.33 Acute on chronic diastolic (congestive) heart failure; N18.6 End stage renal disease; N25.81 Secondary hyperparathyroidism of renal origin; E11.22 Type 2 diabetes mellitus with diabetic chronic kidney disease; G47.33 Obstructive sleep apnea (adult) (pediatric); J44.9 Chronic obstructive pulmonary disease, unspecified; E66.9 Obesity, unspecified; D63.1 Anemia in chronic kidney disease; E78.5 Hyperlipidemia, unspecified; E11.51 Type 2 diabetes mellitus with diabetic peripheral angiopathy without gangrene; I25.10 Atherosclerotic heart disease of native coronary artery without angina pectoris; I25.2 Old myocardial infarction; Z99.81 Dependence on supplemental oxygen; Z79.899 Other long term (current) drug therapy; Z79.82 Long term (current) use of aspirin; Z89.421 Acquired absence of other right toe(s); Z87.891 Personal history of nicotine dependence; Z91.018 Allergy to other foods
CPT/HCPCS: 36415; 71046; 80048; 80053; 81001; 82550; 82553; 82607; 82728; 82746; 82962; 83036; 83540; 83550; 83690; 83735; 83880; 84484; 85025; 85045; 85610; 85730; 93005; 93010; 93971; 94660; 96374; 99285; J1439; J1644; J1940; J7050

== ENCOUNTER 2019-07-27 11:08 | Inpatient (IN) | payer MEDICARE, BC, OTHER ==
--- NOTE | 2019-07-27 11:27 | ER Document Report ---
ED Medical Screen (RME) - General Chief Complaint: Shortness Of Breath Stated Complaint: DIFFICULTY BREATHING Time Seen by Provider: 07/27/19 11:24 Primary Care Provider: GEMINI MELENDEZ MD [Primary Care Provider] - Follow up as needed Mode of Arrival: Wheelchair Information source: Patient Notes: 68-year-old male presented to ED for shortness of breath pedal edema and gaining weight. He does have a history of COPD and kidney failure. His primary care Jerzy sent him in to the hospital due to gaining weight with his balance. Patient is alert oriented he is mildly short of breath. He is on 3 L O2 nasal cannula. He is able to talk in full sentences. is at the bedside. I have greeted and performed a rapid initial assessment of this patient. A comprehensive ED assessment and evaluation of the patient, analysis of test results and completion of medical decision making process will be conducted by an additional ED providers. TRAVEL OUTSIDE OF THE [place] IN LAST 30 DAYS: No - Related Data Allergies/Adverse Reactions: strawberry [[place]] Allergy (Verified 07/27/19 11:09) Past Medical History - Past Medical History Cardiac Medical History: Reports: Hx Congestive Heart Failure, Hx Coronary [place] ry Disease, Hx Heart Attack - 1991, Hx Hypercholesterolemia, Hx Hypertension, Hx Peripheral Vascular Disease - bilateral carotid endarterectomy. Pulmonary Medical History: Reports: Hx COPD - on 4L oxygen as needed., Hx Sleep Apnea - on CPAP and 4 L home oxygen. Endocrine Medical History: Reports: Hx Diabetes Mellitus Type 2 - diet controlled. Renal/ Medical History: Reports: Hx End Stage Renal Disease - stage 5. Denies: Hx Peritoneal Dialysis Psychiatric Medical History: Denies: Hx Depression Past Surgical History: Reports: Hx Cardiac Catheterization - 1991 AND 2001, Hx Orthopedic Surgery - left 5th toe amputation due to infection., Hx Vascular Surgery - B/L carotid endarterectomy., Other - right eye stent placed (since glaucoma). - Immunizations Hx Diphtheria, Pertussis, Tetanus Vaccination: Yes History of Influenza Vaccine for 08/2017 - 01/2018 Season: Yes Physical Exam - Vital signs Vitals: Temp Pulse Resp BP Pulse Ox 97.6 F 63 20 136/46 H 92 07/27/19 11:15 07/27/19 11:15 07/27/19 11:15 07/27/19 11:15 07/27/19 11:15 Course - Vital Signs Vital signs: Temp Pulse Resp BP Pulse Ox 97.6 F 63 20 136/46 H 92 07/27/19 11:15 07/27/19 11:15 07/27/19 11:15 07/27/19 11:15 07/27/19 11:15 Doctor's Discharge - Discharge Referrals: GEMINI MELENDEZ MD [Primary Care Provider] - Follow up as needed
[2019-07-27 11:47] LABS: ABSOLUTE EOSINOPHILS # (AUTO) 0.1 10^3/uL (0.0-0.6); ABSOLUTE LYMPHOCYTES (AUTO) 0.6 10^3/uL (0.5-4.7); ABSOLUTE MONOCYTES (AUTO) 0.6 10^3/uL (0.1-1.4); ABSOLUTE NEUT (AUTO) 5.1 10^3/uL (1.7-8.2); BASOPHILS % (AUTO) 0.1 % (0-2); EOSINOPHILS % (AUTO) 1.6 % (0-6); HEMATOCRIT 30.6 % (37.9-51.0); HEMOGLOBIN 10.1 g/dL (13.5-17.0); LYMPHOCYTES % (AUTO) 9.2 % (13-45); MEAN CORPUSCULAR HEMOGLOBIN 32.5 pg (27.0-33.4); MEAN CORPUSCULAR HGB CONC 32.9 g/dL (32.0-36.0); MEAN CORPUSCULAR VOLUME 99 fl (80-97); MONOCYTES % (AUTO) 9.5 % (3-13); PLATELET COUNT 324 10^3/uL (150-450); RED CELL DISTRIBUTION WIDTH 15.5 % (11.5-14.0); SEGMENTED NEUTROPHILS % (AUTO) 79.6 % (42-78); TOTAL CELLS COUNTED % (AUTO) 100 %; WHITE BLOOD COUNT 6.5 10^3/uL (4.0-10.5)
[2019-07-27 11:52] LABS: INTERNATIONAL RATION (INR) 1.15; PARTIAL THROMBOPLASTIN TIME 35.1 SEC (23.5-35.8); PROTHROMBIN TIME 14.8 SEC (11.4-15.4)
[2019-07-27 12:07] LABS: ALBUMIN 3.6 g/dL (3.5-5.0); ALKALINE PHOSPHATASE 69 U/L (38-126); ANION GAP 12 (5-19); ASPARTATE AMINO TRANSFERASE 18 U/L (17-59); BILIRUBIN,DIRECT 0.3 mg/dL (0.0-0.4); BILIRUBIN,TOTAL 0.3 mg/dL (0.2-1.3); BLOOD UREA NITROGEN 84 mg/dL (7-20); CALCIUM 8.8 mg/dL (8.4-10.2); CARBON DIOXIDE 21 mmol/L (22-30); CHLORIDE 105 mmol/L (98-107); CREATINE KINASE 42 U/L (55-170); GLUCOSE 80 mg/dL (75-110); POTASSIUM 4.8 mmol/L (3.6-5.0); TOTAL PROTEIN 6.4 g/dL (6.3-8.2)
[2019-07-27] MEDS ORDERED: FUROSEMIDE INJ/PF 40 MG/4 ML SDV IV ONE (12:13)
[2019-07-27 12:19] LABS: CREATINE KINASE MB 0.65 ng/mL (<4.55); TROPONIN I 0.016 ng/mL
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
--- NOTE | 2019-07-27 12:26 | RADIOLOGY REPORT (SQ) ---
EXAM DESCRIPTION: CHEST 2 VIEWS COMPLETED DATE/TIME: 07/27/2019 12:13 pm REASON FOR STUDY: SHORT OF BREATH PEDAL EDEMAL COMPARISON: 07/05/2019 EXAM PARAMETERS: NUMBER OF VIEWS: two views TECHNIQUE: Digital Frontal and Lateral radiographic views of the chest acquired. RADIATION DOSE: NA LIMITATIONS: none FINDINGS: LUNGS AND PLEURA: There are bilateral pleural effusions right greater than left. No conso lidation. MEDIASTINUM AND HILAR STRUCTURES: No masses or contour abnormalities. HEART AND VASCULAR STRUCTURES: Heart size is stable. Mild central vascular prominence no overt failu re. BONES: No acute findings. HARDWARE: None in the chest. OTHER: No other significant finding. IMPRESSION: Persistent bilateral pleural effusions right greater than left. Similar findings were n oted on prior exam. There is mild central vascular congestion but no overt failure. TECHNICAL DOCUMENTATION: JOB ID: [id number] [employer]- All Rights Reserved Reading location - IP/workstation name: [email or web address]
[2019-07-27] MEDS ORDERED: ACETAMINOPHEN 325 MG TABLET PO PRN (16:44)
[2019-07-27] MEDS ORDERED: NITROGLYCERIN 0.4 MG/TAB 25 TAB/BOTTLE SL PRN (16:55)
[2019-07-27] MEDS ORDERED: CLOBETASOL PROPIONATE 0.05% TOPICAL SOLN 25 ML TOP PRN (16:55)
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
[2019-07-27 18:16] LABS: PHOSPHORUS 6.6 mg/dL (2.5-4.5)
[2019-07-27 19:00] LABS: APPEARANCE,URINE CLEAR; BILIRUBIN,URINE NEGATIVE (NEGATIVE); COLOR,URINE STRAW; GLUCOSE, URINE NEGATIVE (NEGATIVE); KETONES,URINE NEGATIVE (NEGATIVE); LEUKOCYTE ESTERASE,URINE NEGATIVE (NEGATIVE); NITRITE,URINE NEGATIVE (NEGATIVE); PROTEIN,URINE 100 mg/dL (NEGATIVE); URINE SPECIFIC GRAVITY 1.008; UROBILINOGEN,URINE NEGATIVE mg/dL (<2.0)
[2019-07-27] MEDS: HYDRALAZINE HCL 50 MG TABLET PO SCH (19:55)
[2019-07-27] MEDS: ATORVASTATIN CALCIUM 20 MG TABLET PO SCH (19:55)
[2019-07-27] MEDS: TAMSULOSIN HCL 0.4 MG CAP.SR.24H PO SCH (19:55)
[2019-07-27] MEDS: FERROUS SULFATE 325 MG TABLET PO SCH (19:55)
[2019-07-27] MEDS: ASPIRIN 325 MG TABLET PO SCH (19:55)
[2019-07-27] MEDS: CYANOCOBALAMIN (VITAMIN B-12) 1,000 MCG TABLET SL SCH (19:55)
[2019-07-27] MEDS: FAMOTIDINE 20 MG TABLET PO SCH (21:06)
[2019-07-27] MEDS ORDERED: FAMOTIDINE 20 MG TABLET PO SCH (22:00)
[2019-07-27] MEDS ORDERED: DEXTROSE 40% GEL 15 GM TUBE PO PRN ×2 (22:25)
[2019-07-27] MEDS ORDERED: GLUCAGON,HUMAN RECOMB 1 MG INJ IM PRN (22:25)
[2019-07-27] MEDS ORDERED: DEXTROSE 50%-WATER 25 GM/50 ML DISP.SYRIN IV PRN ×2 (22:25)
--- NOTE | 2019-07-27 23:18 | EKG REPORT ---
SEVERITY:- OTHERWISE NORMAL ECG - SINUS RHYTHM ATRIAL PREMATURE COMPLEX : Confirmed by: Ruddy Gaona 27-Jul-2019 23:17:21
[2019-07-28 06:08] LABS: ABSOLUTE BASOPHILS # (AUTO) 0.1 10^3/uL (0.0-0.2); ABSOLUTE EOSINOPHILS # (AUTO) 0.1 10^3/uL (0.0-0.6); ABSOLUTE LYMPHOCYTES (AUTO) 0.8 10^3/uL (0.5-4.7); ABSOLUTE MONOCYTES (AUTO) 0.7 10^3/uL (0.1-1.4); ABSOLUTE NEUT (AUTO) 3.6 10^3/uL (1.7-8.2); BASOPHILS % (AUTO) 1.1 % (0-2); EOSINOPHILS % (AUTO) 2.1 % (0-6); HEMATOCRIT 26.9 % (37.9-51.0); LYMPHOCYTES % (AUTO) 14.9 % (13-45); MEAN CORPUSCULAR HEMOGLOBIN 33.1 pg (27.0-33.4); MEAN CORPUSCULAR HGB CONC 33.5 g/dL (32.0-36.0); MEAN CORPUSCULAR VOLUME 99 fl (80-97); MONOCYTES % (AUTO) 13.2 % (3-13); PLATELET COUNT 229 10^3/uL (150-450); RED BLOOD COUNT 2.72 10^6/uL (4.35-5.55); SEGMENTED NEUTROPHILS % (AUTO) 68.7 % (42-78); TOTAL CELLS COUNTED % (AUTO) 100 %; WHITE BLOOD COUNT 5.3 10^3/uL (4.0-10.5)
[2019-07-28 06:28] LABS: ALBUMIN 3.1 g/dL (3.5-5.0); ANION GAP 12 (5-19); BLOOD UREA NITROGEN 84 mg/dL (7-20); CALCIUM 8.5 mg/dL (8.4-10.2); CARBON DIOXIDE 20 mmol/L (22-30); CHLORIDE 104 mmol/L (98-107); PHOSPHORUS 6.5 mg/dL (2.5-4.5); POTASSIUM 4.9 mmol/L (3.6-5.0)
[2019-07-28 06:34] LABS: GLUCOSE 67 mg/dL (75-110)
[2019-07-28] MEDS: INSULIN REG, HUMAN 100 UNIT/ML 3 ML VIAL (PYX) SUBCUT SCH ×2 (07:36→17:23)
[2019-07-28] MEDS: CALCITRIOL 0.25 MCG CAPSULE PO SCH (09:17)
[2019-07-28] MEDS: METOPROLOL SUCCINATE 50 MG TAB.SR.24H PO SCH (09:17)
[2019-07-28] MEDS: AMLODIPINE BESYLATE 5 MG TABLET PO SCH (09:17)
[2019-07-28] MEDS: ENOXAPARIN SODIUM INJ 30 MG/0.3 ML DISP.SYRIN SUBCUT SCH (09:17)
[2019-07-28] MEDS: HYDRALAZINE HCL 50 MG TABLET PO SCH ×2 (09:19→20:00)
[2019-07-28] MEDS: FEBUXOSTAT 40 MG TABLET PO SCH (09:28)
[2019-07-28] MEDS: CALCIUM ACETATE 667 MG CAPSULE PO SCH ×3 (09:28→17:27)
[2019-07-28] MEDS ORDERED: FUROSEMIDE INJ/PF 40 MG/4 ML SDV IV SCH (10:00)
[2019-07-28] MEDS ORDERED: METOPROLOL SUCCINATE 50 MG TAB.SR.24H PO SCH (10:00)
[2019-07-28] MEDS ORDERED: ASPIRIN 325 MG TABLET, ENT COATED PO SCH (10:00)
--- NOTE | 2019-07-28 13:10 | PDOC PROGRESS REPORT ---
Subjective Progress Note for:: 07/28/19 Subjective:: Patient is resting in bed on his CPAP. He reports feeling better today. Reason For Visit: HEART FAILURE, STAGE V CHRONIC KIDNEY FAILURE Physical Exam Vital Signs: Temp Pulse Resp BP Pulse Ox 98.2 F 30 L 16 105/52 L 98 07/28/19 07:34 07/28/19 07:34 07/28/19 07:51 07/28/19 07:34 07/28/19 07:34 Intake & Output 07/27/19 07/28/19 07/29/19 06:59 06:59 06:59 Output Total 600 Balance -600 Weight 109.6 kg General appearance: PRESENT: no acute distress, obese, well-developed Head exam: PRESENT: atraumatic, normocephalic Eye exam: PRESENT: conjunctiva pink. ABSENT: scleral icterus Mouth exam: PRESENT: moist, tongue midline Neck exam: PRESENT: full ROM, other - Patient has a very large neck.. ABSENT: carotid bruit - Bilateral endarterectomy scars, lymphadenopathy Respiratory exam: PRESENT: rales - Bilateral bases, symmetrical, unlabored. ABSENT: accessory muscle use, rhonchi, tachypnea, wheezes Cardiovascular exam: PRESENT: RRR, +S1, +S2, systolic murmur Pulses: PRESENT: +2 pedal pulses bilateral GI/Abdominal exam: PRESENT: normal bowel sounds, soft. ABSENT: distended - Patient does have a protuberant abdomen, tenderness Rectal exam: PRESENT: deferred Gentrourinary exam: ABSENT: indwelling catheter Extremities exam: PRESENT: full ROM, pedal edema - Edema appears improved from yesterday. ABSENT: calf tenderness Musculoskeletal exam: PRESENT: ambulatory, normal inspection Neurological exam: PRESENT: alert, awake, oriented to person, oriented to place, oriented to time, oriented to situation, CN II-XII grossly intact Psychiatric exam: PRESENT: appropriate affect, normal mood. ABSENT: agitated, anxious Focused psych exam: ABSENT: delusional, restlessness Skin exam: PRESENT: dry, normal color, warm. ABSENT: rash Results Laboratory Results: 07/28/19 05:42 07/28/19 05:42 07/27/19 07/27/19 07/28/19 11:34 18:15 05:42 WBC 5.3 RBC 2.72 L Hgb 9.0 L Hct 26.9 L MCV 99 H MCH 33.1 MCHC 33.5 RDW 15.0 H Plt Count 229 Seg Neutrophils % 68.7 Sodium Potassium Chloride Carbon Dioxide Anion Gap BUN Creatinine Est GFR ( Amer) Glucose Calcium Phosphorus 6.6 H Magnesium 2.3 Albumin Urine Color STRAW Urine Appearance CLEAR Urine pH 5.0 Ur Specific [place] 1.008 Urine Protein 100 H Urine Glucose (UA) NEGATIVE Urine Ketones NEGATIVE Urine Blood NEGATIVE Urine Nitrite NEGATIVE Ur Leukocyte Esterase NEGATIVE Urine WBC (Auto) 0 07/28/19 05:42 WBC RBC Hgb Hct MCV MCH MCHC RDW Plt Count Seg Neutrophils % Sodium 135.6 L Potassium 4.9 Chloride 104 Carbon Dioxide 20 L Anion Gap 12 BUN 84 H Creatinine 6.10 H Est GFR ( Amer) 11 L Glucose 67 L Calcium 8.5 Phosphorus 6.5 H Magnesium 2.1 Albumin 3.1 L Urine Color Urine Appearance Urine pH Ur Specific [place] Urine Protein Urine Glucose (UA) Urine Ketones Urine Blood Urine Nitrite Ur Leukocyte Esterase Urine WBC (Auto) 07/27/19 07/27/19 07/27/19 11:34 11:34 11:34 Creatine Kinase 42 L CK-MB (CK-2) 0.65 Troponin I 0.016 NT-Pro-B Natriuret Pep [id number] H 07/28/19 05:42 Creatine Kinase CK-MB (CK-2) Troponin I NT-Pro-B Natriuret Pep [id number] H Impressions: Chest X-Ray 07/27/19 11:24 IMPRESSION: Persistent bilateral pleural effusions right greater than left. Similar findings were noted on prior exam. There is mild central vascular congestion but no overt failure. Assessment and Plan - Diagnosis (1) Acute on chronic diastolic CHF (congestive heart failure) Is this a current diagnosis for this admission?: Yes Plan: 07/27/2019-the patient had 2/4 diastolic dysfunction in February 2018. I have asked for a repeat echocardiogram to compare the 2. It seems that his episodes of heart failure have become more frequent requiring more frequent hospitalizations. He was just here in June. I have stopped his oral Lasix and have put him on IV Lasix 40 mg daily. We will continue his amlodipine, metoprolol succinate and hydralazine. We will continue to monitor his renal function and electrolytes. We will recheck a brain natruretic peptide. We will continue to monitor intake and output as well. 07/28/2019-this is a chronic recurrence for this patient. The episodes have become more frequent recently. I have initiated low-dose furosemide (20 mg IV daily) and he did have a negative fluid balance however his creatinine did go up slightly. Nephrology will be seeing the patient as well. (2) End stage renal disease Is this a current diagnosis for this admission?: Yes Plan: 07/27/2019-the patient sees Dr. Henao. He has a fistula in his left arm. They are trying to avoid hemodialysis. With the more aggressive diuresis we will monitor the renal function. We will continue his calcium acetate, calcitriol and vitamin D. A nephrology consult has been ordered. 07/28/2019-nephrology consult has been requested. We will continue his current medication regimen and observe any changes that might be made. (3) Anemia in chronic kidney disease (CKD) Qualifiers: Chronic kidney disease stage: stage 5, not on chronic dialysis Qualified Code(s): N18.5 - Chronic kidney disease, stage 5; D63.1 - Anemia in chronic kidney disease Is this a current diagnosis for this admission?: Yes Plan: 07/27/2019-we will continue the patient's vitamin B12 and ferrous sulfate. We will continue to monitor his hemoglobin. 07/28/2019-hemoglobin is slightly lower today. There is no obvious blood loss. We will continue to monitor. Supplements as above. (4) Gout Qualifiers: Gout site: unspecified site Gout etiology: idiopathic Chronicity: chronic Presence of tophus: without tophus Qualified Code(s): M1A.00X0 - Idiopathic chronic gout, unspecified site, without tophus (tophi) Is this a current diagnosis for this admission?: Yes Plan: 07/27/2019-continue Uloric 07/28/2019-resume Uloric. No acute symptoms at this time. (5) Diabetes mellitus type 2 in obese Is this a current diagnosis for this admission?: Yes Plan: The patient is diet controlled. I will check fingersticks and have a sliding scale available. 07/28/2019-the patient is well controlled with diet alone. Accu-Cheks are quite good. (6) Hypertension Qualifiers: Hypertension type: essential hypertension Qualified Code(s): I10 - Essential (primary) hypertension Is this a current diagnosis for this admission?: Yes Plan: 07/27/2019-we will monitor blood pressure with change in furosemide dosing. In addition we will continue the amlodipine 5 mg daily, metoprolol succinate 50 mg daily, furosemide 40 mg IV daily and hydralazine 50 mg twice daily. Continue to monitor blood pressure and adjust medications if needed. 07/28/2019-the patient's furosemide dosing is changing. We will continue to monitor his pressure. Review of the most recent vital signs show some fluctuation. We will adjust medications based on blood pressure readings. (7) Atherosclerosis of both carotid arteries Is this a current diagnosis for this admission?: Yes Plan: 07/27/2019-the patient is status post bilateral carotid endarterectomies. We will continue the aspirin 325 mg daily as well as the atorvastatin 20 mg daily. Will monitor for any symptoms of acute coronary syndrome. 07/28/2019-no change in the treatment plan at this time. - Time Time Spent with patient: 15-24 minutes Medications reviewed and adjusted accordingly: Yes Anticipated discharge: Home
--- NOTE | 2019-07-28 16:29 | PDOC CONSULTATION ---
Consultation Consult Date: 07/28/19 Provider Consulted: RICHAR WANG Consult reason:: I was asked to see the patient due to CKD presenting with shortness of breath. History of Present Illness Admission Date/PCP: 07/27/19 13:58 GEMINI MELENDEZ MD History of Present Illness: APURVA ELLSWORTH is a 68 year old male gentleman with history of complicated diabetes mellitus type 2, hypertension, coronary artery disease, and chronic kidney disease stage V not currently on dialysis who presented to the emergency room yesterday because of increasing and worsening shortness of breath. Patient usually follows up with our physician expanded duty dental assistant, Kade Torres PA-C. Patient was just recently admitted on about a couple weeks ago for the same reason. There has been a discussion regarding initiation of renal replacement therapy but patient has not consented so far and so because he is not uremic we are still holding on treatment until it becomes really necessary. So patient said that he started feeling short of breath last week around or Friday. He usually takes his Lasix 20 mg on 5 days a week except Wednesdays and Sundays. He told me that he gained 10 pounds but unfortunately did not take extra Lasix as he was instructed. He still makes a good amount of urine output and responded very well to Lasix. On admission his chest x-ray showed findings consistent with congestive heart failure with elevated BNP. His BUN was 84, creatinine of 5.88 and today he has a BUN of 84 and creatinine of 6.1 with EGFR of 9. He was given IV Lasix yesterday and today and he did respond with urine output of 600 mL since admission yesterday until this morning. He claims that he feels much better. He did present also with worsening leg swelling which he thinks is getting better as well today. He denies any chest pains, cough, decrease in appetite, nausea, vomiting, disorientation or confusion. He claims that he is still eating very good. He has a left upper arm AV fistula being followed by Dr. Teresa by which he had 2 coils placed about 2 to 3 weeks ago and he was advised by Dr. Rossi that his fistula is ready to be used. When I saw him he was wearing his CPAP and feels comfortable. Past Medical History Cardiac Medical History: Reports: Coronary Artery Disease, Hyperlipidemia, Hypertension-primary, Myocardial Infarction - 1991, Peripheral Vascular Disease - bilateral carotid endarterectomy. Pulmonary Medical History: Reports: Chronic Obstructive Pulmonary Disease (COPD) - on 3L oxygen as needed., Sleep Apnea - on CPAP and 4 L home oxygen. Neurological Medical History: Reports: Other - Neuropathy in both feet Endocrine Medical History: Reports: Diabetes Mellitus Type 2 - diet controlled. Renal/ Medical History: Reports: Chronic Kidney Disease Stage V, Secondary Hyperparathyroidism GI Medical History: Reports: Diverticulitis Musculoskeltal Medical History: Reports: Gout, Other - Fractured left clavicle, arthroscopy left knee Skin Medical History: Reports: Other - Very sensitive skin. Needs to avoid dyes and perfumes. Hematology Medical History: Reports Anemia of Chronic Kidney Disease Past Surgical History Past Surgical History: Reports: Cardiac Catheterization - 1991 AND 2001, Dialysis Access Surgery AVF - 2016, Orthopedic Surgery - left 5th toe amputation due to infection, left knee arthrosclopy, Vascular Surgery - B/L carotid endarterectomy., Other - right eye stent placed (since glaucoma), vasectomy Social History Information Source: Patient, [facility] Records Lives with: Spouse/Significant other Smoking Status: Former Smoker Last Time Smoked: 1991 Frequency of Alcohol Use: Rare Hx Recreational Drug Use: No Drugs: None Hx Prescription Drug Abuse: No - Advance Directive Resuscitation Status: Full Code Family History Family History: No history of kidney disease. Parental Family History Reviewed: Yes Children Family History Reviewed: No Sibling(s) Family History Reviewed.: Yes Medication/Allergy Home Medications: Amlodipine Besylate [Norvasc 5 mg Tablet] 5 [place] 79907/05/19 Aspirin [Aspirin 325 mg Tablet] 325 mg PO 199907/05/19 Atorvastatin Calcium [Lipitor 20 mg Tablet] 20 mg PO 199907/05/19 Calcitriol [Rocaltrol 0.25 mcg Capsule] 0[place] [address]/05/19 Calcium Acetate [Phoslo 667 mg Capsule] 667 mg PO 07/05/19 Cyanocobalamin (Vitamin B-12) [Vitamin B-12 1000 mcg Tablet] 1,000 mcg SL 199907/05/19 Ergocalciferol (Vitamin D2) [Drisdol 50,000 unit (1.25MG) Capsule] 50,000 unit PO MO@2200 07/05/19 Febuxostat [Uloric 40 mg Tablet] [place] [address]07/05/19 Ferrous Sulfate [Feosol 325 mg Tablet] 325 mg PO 199907/05/19 Furosemide [Lasix 40 mg Tablet] 40 mg PO MOTUTHFRSA@0800 07/05/19 Hydralazine HCl [Apresoline 50 mg Tablet] 50 mg PO 08,199907/05/19 Metoprolol Succinate [Toprol Xl 50 mg Tab.sr] 50 mg PO 0807/05/19 Tamsulosin HCl [Flomax 0.4 mg Cap.sr] 0.4 mg PO 199907/05/19 Clobetasol Propionate [Temovate 0.05% Topical Soln 25 Ml Bottle] 1 applic TOP ASDIR PRN 07/27/19 Nitroglycerin [Nitrostat 0.4 mg (1/150 Gr) Tabs 25/Bottle] 1 tab SL Q5MP PRN 07/27/19 Sildenafil Citrate [Viagra] 100 mg PO ASDIR PRN 07/27/19 Allergies/Adverse Reactions: strawberry [[place]] Allergy (Verified 07/27/19 11:09) Review of Systems All systems: reviewed and no additional remarkable complaints except as stated Review of Systems: Constitutional: ABSENT: chills, fatigue, fever(s), headache(s), weight loss; admits weight gain likely secondary to fluid gains Eyes: ABSENT: visual disturbances Ears: ABSENT: hearing changes Cardiovascular: ABSENT: chest pain, orthropnea, palpitations; admits worsening shortness of breath and edema Respiratory: ABSENT: cough, dyspnea, hemoptysis Gastrointestinal: ABSENT: abdominal pain, constipation, diarrhea, hematemesis, hematochezia, nausea, vomiting Genitourinary: ABSENT: dysuria, hematuria Musculoskeletal: ABSENT: joint swelling Integumentary: ABSENT: rash, wounds Neurological: ABSENT: abnormal gait, abnormal speech, confusion, dizziness, focal weakness, numbness, syncope Psychiatric: ABSENT: anxiety, depression Endocrine: ABSENT: cold intolerance, heat intolerance, polydipsia, polyuria Hematologic/Lymphatic: ABSENT: easy bleeding, easy bruising, lymphadenopathy Physical Exam Vital Signs: Temp Pulse Resp BP Pulse Ox 99.3 F 65 16 164/53 H 94 07/27/19 23:04 07/28/19 02:00 07/28/19 07:51 07/27/19 23:04 07/28/19 04:36 Intake & Output 07/27/19 07/28/19 07/29/19 06:59 06:59 06:59 Output Total 600 Balance -600 Weight 109.6 kg Exam: General appearance: No acute distress, cooperative, well-developed, well- nourished Head exam: PRESENT: atraumatic, normocephalic Eye exam: PRESENT: Conjunctiva slightly pale, EOMI, PERRLA. ABSENT: conjunctival injection, scleral icterus Mouth exam: PRESENT: moist, neck supple, tongue midline Neck exam: PRESENT: full ROM. ABSENT: carotid bruit, JVD, lymphadenopathy, thyromegaly Respiratory exam: PRESENT: Diminished breath sounds to auscultation bilaterally. ABSENT: rales, rhonchi, stridor, wheezes Cardiovascular exam: PRESENT: RRR, +S1, +S2. ABSENT: systolic murmur Pulses: PRESENT: normal radial pulses, normal dorsalis pedis pulses GI/Abdominal exam: PRESENT: normal bowel sounds, soft. ABSENT: guarding, mass, tenderness Rectal exam: Deferred Extremities exam: PRESENT: full ROM. Trace bilateral lower extremity edema ABSENT: calf tenderness Musculoskeletal: PRESENT: full ROM. ABSENT: deformity Neurological exam: PRESENT: alert, Awake, Oriented to person, Oriented to place, Oriented to time, reflexes normal, CN II-XII grossly intact. ABSENT: motor sensory deficit Psychiatric exam: PRESENT: appropriate affect, normal mood. ABSENT: homicidal ideation, suicidal ideation Skin exam: PRESENT: intact, dry, warm. ABSENT: rash Results Laboratory Results: 07/28/19 05:42 07/28/19 05:42 07/27/19 07/27/19 07/27/19 11:34 11:34 11:34 WBC 6.5 RBC 3.10 L Hgb 10.1 L Hct 30.6 L MCV 99 H MCH 32.5 MCHC 32.9 RDW 15.5 H Plt Count 324 Seg Neutrophils % 79.6 H Sodium 138.0 Potassium 4.8 Chloride 105 Carbon Dioxide 21 L Anion Gap 12 BUN 84 H Creatinine 5.88 H Est GFR ( Amer) 12 L Glucose 80 Calcium 8.8 Phosphorus 6.6 H Magnesium 2.3 Total Bilirubin 0.3 AST 18 Alkaline Phosphatase 69 Total Protein 6.4 Albumin 3.6 Lipase 341.4 H Urine Color Urine Appearance Urine pH Ur Specific [place] Urine Protein Urine Glucose (UA) Urine Ketones Urine Blood Urine Nitrite Ur Leukocyte Esterase Urine WBC (Auto) 07/27/19 07/28/19 07/28/19 18:15 05:42 05:42 WBC 5.3 RBC 2.72 L Hgb 9.0 L Hct 26.9 L MCV 99 H MCH 33.1 MCHC 33.5 RDW 15.0 H Plt Count 229 Seg Neutrophils % 68.7 Sodium 135.6 L Potassium 4.9 Chloride 104 Carbon Dioxide 20 L Anion Gap 12 BUN 84 H Creatinine 6.10 H Est GFR ( Amer) 11 L Glucose 67 L Calcium 8.5 Phosphorus 6.5 H Magnesium 2.1 Total Bilirubin AST Alkaline Phosphatase Total Protein Albumin 3.1 L Lipase Urine Color STRAW Urine Appearance CLEAR Urine pH 5.0 Ur Specific [place] 1.008 Urine Protein 100 H Urine Glucose (UA) NEGATIVE Urine Ketones NEGATIVE Urine Blood NEGATIVE Urine Nitrite NEGATIVE Ur Leukocyte Esterase NEGATIVE Urine WBC (Auto) 0 07/27/19 07/27/19 07/27/19 11:34 11:34 11:34 Creatine Kinase 42 L CK-MB (CK-2) 0.65 Troponin I 0.016 NT-Pro-B Natriuret Pep [id number] H 07/28/19 05:42 Creatine Kinase CK-MB (CK-2) Troponin I NT-Pro-B Natriuret Pep [id number] H Impressions: Chest X-Ray 07/27/19 11:24 IMPRESSION: Persistent bilateral pleural effusions right greater than left. Similar findings were noted on prior exam. There is mild central vascular congestion but no overt failure. Assessment & Plan - Diagnosis (1) Acute on chronic diastolic CHF (congestive heart failure) Is this a current diagnosis for this admission?: Yes Plan: Patient responded well with a low-dose IV furosemide. This repeated episodes of pulmonary vascular congestion and worsening shortness of breath is most likely related to slowly worsening kidney function. Continue IV diuretics for now. (2) CKD (chronic kidney disease), stage V Is this a current diagnosis for this admission?: Yes Plan: I spoke to the patient regarding initiation of renal replacement therapy as this episodes of acute worsening shortness of breathing due to pulmonary vascular congestion is becoming more frequent although he does not have any other uremic symptoms. Patient told me that he and his plans to go to [place] next week for a 2-week vacation so he wants to delay it until he comes back for the 2-week trip. So since he is responding very well with IV diuretics were going to hold off initiation of renal replacement therapy at this time but strongly advised the patient to follow-up with Kade Torres PA-C upon the return from his surgery to initiate renal replacement therapy. Patient agreed with the plan. (3) Anemia in chronic kidney disease (CKD) Qualifiers: Chronic kidney disease stage: stage 5, not on chronic dialysis Qualified Code(s): N18.5 - Chronic kidney disease, stage 5; D63.1 - Anemia in chronic kidney disease Is this a current diagnosis for this admission?: Yes Plan: Patient is going to need Procrit. (4) Diabetes mellitus type 2 in obese Is this a current diagnosis for this admission?: Yes Plan: Well-controlled. (5) Hypertension Qualifiers: Hypertension type: essential hypertension Qualified Code(s): I10 - Essential (primary) hypertension Is this a current diagnosis for this admission?: Yes Plan: Well-controlled. (6) Obstructive sleep apnea Is this a current diagnosis for this admission?: Yes Plan: Continue CPAP use. - Notes Notes: Thank you very much for this consultation. - Time Time Spent: Greater than 70 Minutes
[2019-07-28] MEDS ORDERED: EPOETIN ALFA-EPBX 10,000 UNIT/ML VIAL (NON-ESRD) SUBCUT ONE (18:30)
[2019-07-28] MEDS: FERROUS SULFATE 325 MG TABLET PO SCH (20:00)
[2019-07-28] MEDS: ATORVASTATIN CALCIUM 20 MG TABLET PO SCH (20:00)
[2019-07-28] MEDS: CYANOCOBALAMIN (VITAMIN B-12) 1,000 MCG TABLET SL SCH (20:00)
[2019-07-28] MEDS: ASPIRIN 325 MG TABLET PO SCH (20:00)
[2019-07-28] MEDS: TAMSULOSIN HCL 0.4 MG CAP.SR.24H PO SCH (20:01)
[2019-07-28] MEDS: FAMOTIDINE 20 MG TABLET PO SCH (21:01)
[2019-07-29] MEDS: HYDRALAZINE HCL INJ/PF 20 MG/1 ML SDV IV PRN ×2 (01:22→23:33)
[2019-07-29 05:37] LABS: HEPATITS B SURFACE ANTIGEN Negative (Negative)
[2019-07-29] MEDS: ENOXAPARIN SODIUM INJ 30 MG/0.3 ML DISP.SYRIN SUBCUT SCH (09:55)
[2019-07-29] MEDS: CALCIUM ACETATE 667 MG CAPSULE PO SCH ×3 (09:56→18:46)
[2019-07-29] MEDS: FEBUXOSTAT 40 MG TABLET PO SCH (09:56)
[2019-07-29] MEDS: FUROSEMIDE INJ/PF 20 MG/2 ML SDV IV SCH (09:56)
[2019-07-29 09:57] LABS: HEPATITIS B CORE AB TOT Negative (Negative)
[2019-07-29] MEDS: AMLODIPINE BESYLATE 5 MG TABLET PO SCH (09:57)
[2019-07-29] MEDS: METOPROLOL SUCCINATE 50 MG TAB.SR.24H PO SCH (09:57)
[2019-07-29] MEDS: CALCITRIOL 0.25 MCG CAPSULE PO SCH (09:57)
[2019-07-29] MEDS: HYDRALAZINE HCL 50 MG TABLET PO SCH ×2 (09:57→20:07)
[2019-07-29] MEDS: INSULIN REG, HUMAN 100 UNIT/ML 3 ML VIAL (PYX) SUBCUT SCH ×2 (09:58→18:45)
[2019-07-29 12:36] LABS: HEMATOCRIT 28.7 % (37.9-51.0); HEMOGLOBIN 9.5 g/dL (13.5-17.0); MEAN CORPUSCULAR HEMOGLOBIN 32.9 pg (27.0-33.4); MEAN CORPUSCULAR HGB CONC 33.1 g/dL (32.0-36.0); MEAN CORPUSCULAR VOLUME 99 fl (80-97); PLATELET COUNT 235 10^3/uL (150-450); RED BLOOD COUNT 2.89 10^6/uL (4.35-5.55); RED CELL DISTRIBUTION WIDTH 15.2 % (11.5-14.0); WHITE BLOOD COUNT 6.1 10^3/uL (4.0-10.5)
[2019-07-29 13:01] LABS: ALBUMIN 3.2 g/dL (3.5-5.0); ANION GAP 11 (5-19); BLOOD UREA NITROGEN 84 mg/dL (7-20); CALCIUM 9.2 mg/dL (8.4-10.2); CARBON DIOXIDE 23 mmol/L (22-30); CHLORIDE 102 mmol/L (98-107); GLUCOSE 92 mg/dL (75-110); PHOSPHORUS 6.9 mg/dL (2.5-4.5); POTASSIUM 4.9 mmol/L (3.6-5.0)
--- NOTE | 2019-07-29 17:24 | PDOC PROGRESS REPORT ---
Subjective Progress Note for:: 07/29/19 Subjective:: Once again the patient is resting in bed on his CPAP. He states that he continues to feel well. Reason For Visit: HEART FAILURE, STAGE V CHRONIC KIDNEY FAILURE Physical Exam Vital Signs: Temp Pulse Resp BP Pulse Ox 98.5 F 65 18 169/44 H 93 07/29/19 12:04 07/29/19 12:04 07/29/19 16:33 07/29/19 12:04 07/29/19 16:33 Intake & Output 07/28/19 07/29/19 07/30/19 06:59 06:59 06:59 Intake Total 497 472 Output Total 600 1160 800 Balance -600 -663 -328 Weight 109.6 kg 108.9 kg General appearance: PRESENT: no acute distress, cooperative, obese Head exam: PRESENT: atraumatic, normocephalic Ear exam: PRESENT: normal external ear exam. ABSENT: bleeding, drainage Mouth exam: PRESENT: moist, tongue midline Neck exam: PRESENT: other - Very thick neck. ABSENT: carotid bruit - Bilateral endarterectomy incision scars., lymphadenopathy Respiratory exam: PRESENT: rales - Bilateral bases, symmetrical, unlabored. ABSENT: rhonchi, tachypnea, wheezes Cardiovascular exam: PRESENT: RRR, +S1, +S2 GI/Abdominal exam: PRESENT: normal bowel sounds, soft. ABSENT: tenderness Rectal exam: PRESENT: deferred Extremities exam: PRESENT: pedal edema, +1 edema - Still with pitting edema both legs but seems improved. Musculoskeletal exam: PRESENT: ambulatory. ABSENT: deformity Neurological exam: PRESENT: alert, awake, oriented to person, oriented to place, oriented to time, oriented to situation, CN II-XII grossly intact Psychiatric exam: PRESENT: appropriate affect, normal mood. ABSENT: agitated, anxious Focused psych exam: ABSENT: delusional, restlessness Skin exam: PRESENT: pallor Results Laboratory Results: 07/29/19 12:15 07/29/19 12:15 07/29/19 07/29/19 12:15 12:15 WBC 6.1 RBC 2.89 L Hgb 9.5 L Hct 28.7 L MCV 99 H MCH 32.9 MCHC 33.1 RDW 15.2 H Plt Count 235 Sodium 136.4 L Potassium 4.9 Chloride 102 Carbon Dioxide 23 Anion Gap 11 BUN 84 H Creatinine 6.61 H Est GFR ( Amer) 10 L Glucose 92 Calcium 9.2 Phosphorus 6.9 H Magnesium 2.2 Albumin 3.2 L 07/27/19 07/27/19 07/27/19 11:34 11:34 11:34 Creatine Kinase 42 L CK-MB (CK-2) 0.65 Troponin I 0.016 NT-Pro-B Natriuret Pep 99984 H 07/28/19 05:42 Creatine Kinase CK-MB (CK-2) Troponin I NT-Pro-B Natriuret Pep 41760 H Impressions: Chest X-Ray 07/27/19 11:24 IMPRESSION: Persistent bilateral pleural effusions right greater than left. Similar findings were noted on prior exam. There is mild central vascular congestion but no overt failure. Assessment and Plan - Diagnosis (1) Acute on chronic diastolic CHF (congestive heart failure) Is this a current diagnosis for this admission?: Yes Plan: 07/27/2019-the patient had 2/4 diastolic dysfunction in February 2018. I have asked for a repeat echocardiogram to compare the 2. It seems that his episodes of heart failure have become more frequent requiring more frequent hospitalizations. He was just here in June. I have stopped his oral Lasix and have put him on IV Lasix 40 mg daily. We will continue his amlodipine, metoprolol succinate and hydralazine. We will continue to monitor his renal f unction and electrolytes. We will recheck a brain natruretic peptide. We will continue to monitor intake and output as well. 07/28/2019-this is a chronic recurrence for this patient. The episodes have become more frequent recently. I have initiated low-dose furosemide (20 mg IV daily) and he did have a negative fluid balance however his creatinine did go up slightly. Nephrology will be seeing the patient as well. 07/29/2019-with the 40 mg of IV Lasix the creatinine went up slightly. I decrea sed the dose to 20 mg daily. He is maintaining a net negative fluid balance of approximately 600 mL daily. This is reasonable and per nephrology's note, acceptable. We will continue the current regimen. (2) End stage renal disease Is this a current diagnosis for this admission?: Yes Plan: 07/27/2019-the patient sees Dr. Henao. He has a fistula in his left arm. They are trying to avoid hemodialysis. With the more aggressive diuresis we will monitor the renal function. We will continue his calcium acetate, calcitriol and vitamin D. A nephrology consult has been ordered. 07/28/2019-nephrology consult has been requested. We will continue his current medication regimen and observe any changes that might be made. 07/29/2019-please also see nephrology note by Dr. Reeder. Due to the patient's progressive renal failure he will begin hemodialysis. This will start when he gets back from a vacation that he had planned. Nephrology will be making the arrangements. (3) Anemia in chronic kidney disease (CKD) Qualifiers: Chronic kidney disease stage: stage 5, not on chronic dialysis Qualified Code(s): N18.5 - Chronic kidney disease, stage 5; D63.1 - Anemia in chronic kidney disease Is this a current diagnosis for this admission?: Yes Plan: 07/27/2019-we will continue the patient's vitamin B12 and ferrous sulfate. We will continue to monitor his hemoglobin. 07/28/2019-hemoglobin is slightly lower today. There is no obvious blood loss. We will continue to monitor. Supplements as above. 07/29/2019-hemoglobin is stable. Continue to monitor. (4) Gout Qualifiers: Gout site: unspecified site Gout etiology: idiopathic Chronicity: chronic Presence of tophus: without tophus Qualified Code(s): M1A.00X0 - Idiopathic chronic gout, unspecified site, without tophus (tophi) Is this a current diagnosis for this admission?: Yes Plan: 07/27/2019-continue Uloric 07/28/2019-resume Uloric. No acute symptoms at this time. 07/29/2019-currently asymptomatic. Continue same treatment plan. (5) Diabetes mellitus type 2 in obese Is this a current diagnosis for this admission?: Yes Plan: The patient is diet controlled. I will check fingersticks and have a sliding scale available. 07/28/2019-the patient is well controlled with diet alone. Accu-Cheks are quite good. 07/29/2019-continue diabetic diet and Accu-Cheks. (6) Hypertension Qualifiers: Hypertension type: essential hypertension Qualified Code(s): I10 - Essential (primary) hypertension Is this a current diagnosis for this admission?: Yes Plan: 07/27/2019-we will monitor blood pressure with change in furosemide dosing. In addition we will continue the amlodipine 5 mg daily, metoprolol succinate 50 mg daily, furosemide 40 mg IV daily and hydralazine 50 mg twice daily. Continue to monitor blood pressure and adjust medications if needed. 07/28/2019-the patient's furosemide dosing is changing. We will continue to monitor his pressure. Review of the most recent vital signs show some fluctuation. We will adjust medications based on blood pressure readings. 07/29/2019-the patient's blood pressure is variable. It is above goal but appears to be his baseline. We will continue to monitor. Medication adjustments will be made accordingly. (7) Atherosclerosis of both carotid arteries Is this a current diagnosis for this admission?: Yes Plan: 07/27/2019-the patient is status post bilateral carotid endarterectomies. We will continue the aspirin 325 mg daily as well as the atorvastatin 20 mg daily. Will monitor for any symptoms of acute coronary syndrome. 07/28/2019-no change in the treatment plan at this time. 07/29/2019-plan unchanged. - Time Time Spent with patient: 15-24 minutes Medications reviewed and adjusted accordingly: Yes Anticipated discharge: Home
[2019-07-29] MEDS: ATORVASTATIN CALCIUM 20 MG TABLET PO SCH (20:07)
[2019-07-29] MEDS: FERROUS SULFATE 325 MG TABLET PO SCH (20:07)
[2019-07-29] MEDS: TAMSULOSIN HCL 0.4 MG CAP.SR.24H PO SCH (20:07)
[2019-07-29] MEDS: ASPIRIN 325 MG TABLET PO SCH (20:07)
[2019-07-29] MEDS: CYANOCOBALAMIN (VITAMIN B-12) 1,000 MCG TABLET SL SCH (20:07)
[2019-07-29] MEDS: FAMOTIDINE 20 MG TABLET PO SCH (21:02)
[2019-07-30 06:14] LABS: HEMATOCRIT 29.2 % (37.9-51.0); HEMOGLOBIN 9.7 g/dL (13.5-17.0); MEAN CORPUSCULAR HEMOGLOBIN 32.8 pg (27.0-33.4); MEAN CORPUSCULAR HGB CONC 33.1 g/dL (32.0-36.0); MEAN CORPUSCULAR VOLUME 99 fl (80-97); PLATELET COUNT 224 10^3/uL (150-450); RED BLOOD COUNT 2.95 10^6/uL (4.35-5.55); RED CELL DISTRIBUTION WIDTH 15.2 % (11.5-14.0); WHITE BLOOD COUNT 5.1 10^3/uL (4.0-10.5)
[2019-07-30 06:34] LABS: ALBUMIN 3.1 g/dL (3.5-5.0); ANION GAP 14 (5-19); BLOOD UREA NITROGEN 82 mg/dL (7-20); CALCIUM 9.1 mg/dL (8.4-10.2); CARBON DIOXIDE 19 mmol/L (22-30); CHLORIDE 103 mmol/L (98-107); GLUCOSE 79 mg/dL (75-110); PHOSPHORUS 6.6 mg/dL (2.5-4.5); POTASSIUM 4.8 mmol/L (3.6-5.0)
[2019-07-30] MEDS: AMLODIPINE BESYLATE 5 MG TABLET PO SCH (08:00)
[2019-07-30] MEDS: CALCITRIOL 0.25 MCG CAPSULE PO SCH (08:02)
[2019-07-30] MEDS: METOPROLOL SUCCINATE 50 MG TAB.SR.24H PO SCH (08:02)
[2019-07-30] MEDS: HYDRALAZINE HCL 50 MG TABLET PO SCH (08:02)
[2019-07-30] MEDS: CALCIUM ACETATE 667 MG CAPSULE PO SCH ×2 (08:17→12:07)
[2019-07-30] MEDS: FEBUXOSTAT 40 MG TABLET PO SCH (08:17)
[2019-07-30] MEDS: INSULIN REG, HUMAN 100 UNIT/ML 3 ML VIAL (PYX) SUBCUT SCH (08:18)
--- NOTE | 2019-07-30 08:55 | PDOC DISCHARGE SUMMARY ---
General - Admit/Disc Date/PCP Admission Date/Primary Care Provider: 07/27/19 13:58 GEMINI MELENDEZ MD Discharge Date: 07/30/19 - Discharge Diagnosis (1) Acute on chronic diastolic CHF (congestive heart failure) Is this a current diagnosis for this admission?: Yes Summary: The patient did well. He lost almost 2.5 kg and was net negative over 1.5 L of fluid. He feels much better. His discharge regimen will remain 40 mg of Lasix on Friday and Friday. In addition he will take 20 mg on Friday and Friday instead of 0 mg. In addition he will weigh himself daily. If his weight increases by more than 3 pounds I have instructed him to take an additional 20 mg of Lasix daily until he gets back to his base weight. As of discharge his weight is 236 pounds. I will asked that he follows up with Dr. Melendez before he departs for [place] on of next week. I will also ask for an appointment with Kade on the nephrology PA for when the patient returns after August 18. At that point I believe they will initiate hemodialysis. (2) End stage renal disease Is this a current diagnosis for this admission?: Yes Summary: Appreciate Dr. Reeder's input during this hospitalization. See fluid status above. His creatinine on admission was 5.88 and at discharge will be 6.34. He was on 20 mg of furosemide IV daily and the equivalent dose should be 40 mg of oral furosemide. The patient will follow up with nephrology after he returns from [place] to initiate hemodialysis. His potassium remained stable throughout this hospitalization. (3) Anemia in chronic kidney disease (CKD) Is this a current diagnosis for this admission?: Yes Summary: The patient will continue his supplements as an outpatient. He will receive erythropoietin with dialysis per nephrology. (4) Gout Is this a current diagnosis for this admission?: Yes Summary: Asymptomatic during this hospitalization. Return to baseline regimen. (5) Diabetes mellitus type 2 in obese Is this a current diagnosis for this admission?: Yes Summary: With diet alone the patient's Accu-Cheks were excellent. Continue renal/cardiac/diabetic diet at home. (6) Hypertension Is this a current diagnosis for this admission?: Yes Summary: Systolic blood pressures are still higher than desired. I will defer to nephrology and/or Dr. Melendez for changes as an outpatient. (7) Atherosclerosis of both carotid arteries Is this a current diagnosis for this admission?: Yes Summary: The patient is status post carotid endarterectomy bilaterally in the past. He will continue statin therapy and aspirin therapy as well as the remainder of his cardiac medications. - Additional Information Resuscitation Status: Full Code Discharge Diet: Cardiac, Diabetic Discharge Activity: Activity As Tolerated, Balance Activity w/Rest, Weigh Daily Prescriptions: Furosemide [Lasix 20 mg Tablet] 20 mg PO ASDIR #30 tablet Home Medications: Amlodipine Besylate [Norvasc 5 mg Tablet] 5 [place] [address]9907/05/19 Aspirin [Aspirin 325 mg Tablet] 325 mg PO 199907/05/19 Atorvastatin Calcium [Lipitor 20 mg Tablet] 20 mg PO 199907/05/19 Calcitriol [Rocaltrol 0.25 mcg Capsule] 0[place] [address]/05/19 Calcium Acetate [Phoslo 667 mg Capsule] 667 mg PO 07/05/19 Cyanocobalamin (Vitamin B-12) [Vitamin B-12 1000 mcg Tablet] 1,000 mcg SL 199907/05/19 Ergocalciferol (Vitamin D2) [Drisdol 50,000 unit (1.25MG) Capsule] 50,000 unit PO MO@2200 07/05/19 Febuxostat [Uloric 40 mg Tablet] 40 mg PO 0807/05/19 Ferrous Sulfate [Feosol 325 mg Tablet] 325 mg PO 199907/05/19 Hydralazine HCl [Apresoline 50 mg Tablet] 50 mg PO 08,199907/05/19 Metoprolol Succinate [Toprol Xl 50 mg Tab.sr] [place] [address]07/05/19 Tamsulosin HCl [Flomax 0.4 mg Cap.sr] 0.4 mg PO 199907/05/19 Clobetasol Propionate [Temovate 0.05% Topical Soln 25 ml] 1 applic TOP ASDIR PRN 07/27/19 Nitroglycerin [Nitrostat 0.4 mg (1/150 Gr) Tabs 25/Bottle] 1 tab SL Q5MP PRN 07/27/19 Sildenafil Citrate [Viagra] 100 mg PO ASDIR PRN 07/27/19 Acetaminophen [Tylenol 325 mg Tablet] 650 mg PO Q4HP PRN tablet 07/30/19 Furosemide [Lasix 20 mg Tablet] 20 mg PO ASDIR #30 tablet 07/30/19 Furosemide [Lasix 40 mg Tablet] 40 mg PO MOTRANDOLPHSA@0800 #30 07/30/19 History of Present Illness Patient complains of: Shortness of breath History of Present Illness: APURVA ELLSWORTH is a 68 year old male with a history of stage V chronic kidney disease as well as congestive heart failure. In the past he has required admission for several days of IV antibiotics for recurrent episodes of failure. He is currently declining hemodialysis. He normally takes furosemide 20 mg daily except Friday and Friday. He is supposed to weigh himself in a just the furosemide accordingly. He does see Dr. Henao as his academic specialist. He has an AV fistula in his arm but wants to avoid hemodialysis as long as possible. Josee dixon reports that last Friday he started to notice increased swelling and shortness of breath. This gradually worsened. He did not take additional Lasix based on body weight and his reports that typically he does not. With the shortness of breath he denies chest pain, fever or chills. He denies any cough. Evaluation revealed possible failure by x-ray and he also has an elevated brain atretic peptide. Kidney failure patients will have an elevated BNP as well as an elevated troponin. We will try and look back and see if there is a true baseline. The patient was referred to the hospitalist service for admission and his typical treatment of intravenous Lasix for several days monitoring his renal function, swelling and electrolytes. Hospital Course Hospital Course: Unremarkable. See details above. Physical Exam Vital Signs: Temp Pulse Resp BP Pulse Ox 98.5 F 63 18 149/42 H 92 07/29/19 23:21 07/30/19 07:00 07/30/19 00:15 07/30/19 04:15 07/30/19 00:15 Intake & Output 07/29/19 07/30/19 07/31/19 06:59 06:59 06:59 Intake Total 497 1228 Output Total 1160 1550 Balance -663 -322 Weight 108.9 kg 107.3 kg General appearance: PRESENT: no acute distress, obese, well-developed Head exam: PRESENT: atraumatic, normocephalic Eye exam: PRESENT: conjunctiva pale, EOMI. ABSENT: scleral icterus Ear exam: PRESENT: normal external ear exam. ABSENT: bleeding, drainage Mouth exam: PRESENT: moist, tongue midline Neck exam: PRESENT: full ROM, other - Bilateral endarterectomy scars. ABSENT: lymphadenopathy Respiratory exam: PRESENT: clear to auscultation nesha, symmetrical, unlabored. ABSENT: rales, rhonchi, tachypnea, wheezes Cardiovascular exam: PRESENT: RRR, +S1, +S2, other - Distant heart sounds GI/Abdominal exam: PRESENT: normal bowel sounds, soft. ABSENT: distended - Protuberant abdomen, tenderness Rectal exam: PRESENT: deferred Gentrourinary exam: ABSENT: indwelling catheter Extremities exam: PRESENT: pedal edema - Improved. ABSENT: tenderness Musculoskeletal exam: PRESENT: ambulatory. ABSENT: deformity, tenderness Neurological exam: PRESENT: alert, awake, oriented to person, oriented to place, oriented to time, oriented to situation, CN II-XII grossly intact Psychiatric exam: PRESENT: appropriate affect, normal mood. ABSENT: agitated, a nxious Focused psych exam: ABSENT: delusional, restlessness Skin exam: PRESENT: dry, pallor, warm. ABSENT: rash Results Laboratory Results: 07/30/19 05:33 07/30/19 05:33 07/29/19 07/29/19 07/30/19 12:15 12:15 05:33 WBC 6.1 5.1 RBC 2.89 L 2.95 L Hgb 9.5 L 9.7 L Hct 28.7 L 29.2 L MCV 99 H 99 H MCH 32.9 32.8 MCHC 33.1 33.1 RDW 15.2 H 15.2 H Plt Count 235 224 Sodium 136.4 L Potassium 4.9 Chloride 102 Carbon Dioxide 23 Anion Gap 11 BUN 84 H Creatinine 6.61 H Est GFR ( Amer) 10 L Glucose 92 Calcium 9.2 Phosphorus 6.9 H Magnesium 2.2 Albumin 3.2 L 07/30/19 05:33 WBC RBC Hgb Hct MCV MCH MCHC RDW Plt Count Sodium 135.5 L Potassium 4.8 Chloride 103 Carbon Dioxide 19 L Anion Gap 14 BUN 82 H Creatinine 6.34 H Est GFR ( Amer) 11 L Glucose 79 Calcium 9.1 Phosphorus 6.6 H Magnesium 2.2 Albumin 3.1 L 07/27/19 07/27/19 07/27/19 11:34 11:34 11:34 Creatine Kinase 42 L CK-MB (CK-2) 0.65 Troponin I 0.016 NT-Pro-B Natriuret Pep 67473 H 07/28/19 05:42 Creatine Kinase CK-MB (CK-2) Troponin I NT-Pro-B Natriuret Pep 08846 H Impressions: Chest X-Ray 07/27/19 11:24 IMPRESSION: Persistent bilateral pleural effusions right greater than left. Similar findings were noted on prior exam. There is mild central vascular congestion but no overt failure. Qualifiers - * PATIENT BEING DISCHARGED WITH ANY OF THE FOLLOWING DIAGNOSIS: No Acute Heart Failure - Is this a Heart Failure Patient?: Yes Documentation of LVEF assessment?: Planned for after discharge LVEF < 40%?: No- if no continue to question #3 3. Anticoagulant therapy for permanect/persistent/paraoxysmal Afib or Aflutter: N/A Follow-up Appointment scheduled within 7 days?: Yes - Dr. Melendez next week, nephrology post vacation. Plan Time Spent: Greater than 30 Minutes
[2019-07-30] MEDS: ENOXAPARIN SODIUM INJ 30 MG/0.3 ML DISP.SYRIN SUBCUT SCH (09:24)
[2019-07-30] MEDS: FUROSEMIDE INJ/PF 20 MG/2 ML SDV IV SCH (09:25)
[2019-07-30] MEDS ORDERED: ACETAMINOPHEN 325 MG TABLET PO PRN (11:19)
[2019-07-30 11:33] VITALS: BP 149/42
--- NOTE | 2019-07-30 19:47 | XCELERA REPORT ---
[address] [address] Transthoracic Echocardiogram Report Name: APURVA ELLSWORTH Age: 68 yrs Gender: Male : 1950 Patient Status: Inpatient Patient Location: [address] [place] [address] Study Date: 07/28/2019 02:31 PM Height: 68 in Weight: 239 lb BSA: 2.2 m2 Procedure: A two-dimensional transthoracic echocardiogram with color flow and Doppler was performed. The study was technically limited with all images being suboptimal in quality. Images were not obtained from all of the standard acoustic windows due to the limited scope of the study. Reason For Study: CHF (compare to february 2018) History: CHF (compare to february 2018). Ordering Physician: DO GORMAN Performed By: Venessa Hwang Interpretation Summary The left ventricle is normal in size. There is normal left ventricular wall thickness. LV EF is 60% The left ventricular ejection fraction is within normal limits. Doppler measurements suggest impaired left ventricular relaxation, which is associated with grade I/IV or mild diastolic dysfunction : By tissue doppler. The left ventricular wall motion is normal. There is no thrombus. No ASD , VSD , or PFO seen. The right ventricle is normal in size and function. The right atrium is normal. Right atrium not well visualized secondary to technical limitations The left atrium is moderately dilated. There is moderate mitral annular calcification. There is no evidence of mitral valve prolapse. There is no vegetation seen on the mitral valve. There is no mitral valve stenosis. There is a mild amount of mitral regurgitation There is no aortic valvular vegetation. There is mild to moderate aortic stenosis There is a peak gradient of 36 mm of Hg , and mean gradient of 21 mm of Hg. There is a mild amount of aortic regurgitation There is no tricuspid stenosis. There is a trace to mild amount of tricuspid regurgitation There is mild pulmonary hypertension by echo RVSP is 29 too 34 mm of Hg , with RA mean of 5 to 10. The aortic root is normal size. The inferior vena cava appeared normal and decreased > 50% with respiration (RAP 5-10 mmHg) There is no pericardial effusion. MMode/2D Measurements & Calculations RVDd: 3.8 cm LVIDd: 6.1 cm FS: 30.3 % Ao root diam: 2.8 cm IVSd: 0.88 cm LVIDs: 4.2 cm EDV(Teich): 184.6 ml Ao root area: 6.3 cm2 LVPWd: 1.1 cm ESV(Teich): 79.8 ml LA dimension: 4.6 cm EF(Teich): 56.8 % Doppler Measurements & Calculations MV E max tabitha: MV P1/2t max tabitha: Ao V2 max: LV V1 max P.5 cm/sec 133.0 cm/sec 299.2 cm/sec 5.3 mmHg MV A max tabitha: MV P1/2t: 63.2 msec Ao max PG: LV V1 mean P.3 cm/sec MVA(P1/2t): 3.5 cm2 35.9 mmHg 4.0 mmHg MV E/A: 1.2 MV dec slope: Ao V2 mean: LV V1 max: 216.7 cm/sec 114.2 cm/sec 616.6 cm/sec2 Ao mean PG: LV V1 mean: MV dec time: 0.21 sec 21.1 mmHg 94.8 cm/sec Ao V2 VTI: 87.8 cm LV V1 VTI: 34.4 cm PA V2 max: TR max tabitha: MV P1/2t-pr_phl: 77.5 cm/sec 243.0 cm/sec 63.2 msec PA max P.4 mmHgTR max P.7 mmHg Left Ventricle The left ventricle is normal in size. There is normal left ventricular wall thickness. LV EF is 60%. The left ventricular ejection fraction is within normal limits. Doppler measurements suggest impaired left ventricular relaxation, which is associated with grade I/IV or mild diastolic dysfunction. : By tissue doppler. The left ventricular wall motion is normal. There is no thrombus. No ASD , VSD , or PFO seen. Right Ventricle The right ventricle is normal in size and function. Atria The right atrium is normal. Right atrium not well visualized secondary to technical limitations. The left atrium is moderately dilated. Mitral Valve There is moderate mitral annular calcification. There is no evidence of mitral valve prolapse. There is no vegetation seen on the mitral valve. There is no mitral valve stenosis. There is a mild amount of mitral regurgitation. Aortic Valve There is no aortic valvular vegetation. There is mild to moderate aortic stenosis. There is a peak gradient of 36 mm of Hg , and mean gradient of 21 mm of Hg. There is a mild amount of aortic regurgitation. Tricuspid Valve There is no tricuspid stenosis. There is a trace to mild amount of tricuspid regurgitation. There is mild pulmonary hypertension by echo. RVSP is 29 too 34 mm of Hg , with RA mean of 5 to 10. Pulmonic Valve The pulmonic valve is not well visualized. Great Vessels The aortic root is normal size. The inferior vena cava appeared normal and decreased > 50% with respiration (RAP 5-10 mmHg). Effusions There is no pericardial effusion. : DO GORMAN, Erika
[2019-08-02] MEDS ORDERED: ERGOCALCIFEROL (VITAMIN D2) 50000 UNIT (1.25 MG) CAPSULE PO SCH (22:00)
== END 2019-07-30 13:00 | disposition home or self-care (01) | DRG 291 ==
LOC: ER 11:08 → EH 13:58 → 5 15:20
PROVIDERS: ADMIT Hospitalist; ATTEND Hospitalist
PROC: 5A09357 Assistance with Respiratory Ventilation, Less than 24 Consecutive Hours, Continuous Positive Airway Pressure (ICD-10-PCS; principal; 2019-07-27)
DX: I13.2 Hypertensive heart and chronic kidney disease with heart failure and with stage 5 chronic kidney disease, or end stage renal disease (principal); N18.6 End stage renal disease; I50.33 Acute on chronic diastolic (congestive) heart failure; N25.81 Secondary hyperparathyroidism of renal origin; E11.22 Type 2 diabetes mellitus with diabetic chronic kidney disease; E11.51 Type 2 diabetes mellitus with diabetic peripheral angiopathy without gangrene; J44.9 Chronic obstructive pulmonary disease, unspecified; Z99.81 Dependence on supplemental oxygen; E11.40 Type 2 diabetes mellitus with diabetic neuropathy, unspecified; D63.1 Anemia in chronic kidney disease; M10.9 Gout, unspecified; I25.10 Atherosclerotic heart disease of native coronary artery without angina pectoris; E66.9 Obesity, unspecified; G47.30 Sleep apnea, unspecified; E78.5 Hyperlipidemia, unspecified; Z79.82 Long term (current) use of aspirin; I25.2 Old myocardial infarction; Z89.422 Acquired absence of other left toe(s); Z87.891 Personal history of nicotine dependence; Z88.8 Allergy status to other drugs, medicaments and biological substances; Z82.49 Family history of ischemic heart disease and other diseases of the circulatory system
CPT/HCPCS: 36415; 71046; 80053; 80069; 81001; 82550; 82553; 82962; 83690; 83735; 83880; 84100; 84484; 85025; 85027; 85610; 85730; 86317; 86704; 87340; 87522; 93005; 93010; 93306; 94660; 96374; 99285; J0360; J1650; J1940; J3490; Q5106

== ENCOUNTER → 2019-08-04 | Outpatient (CLI) | payer MEDICARE, BC, OTHER ==
--- NOTE | 2019-08-04 19:36 | RADIOLOGY REPORT (SQ) ---
EXAM DESCRIPTION: CHEST PA/LATERAL COMPLETED DATE/TIME: 08/04/2019 5:07 pm REASON FOR STUDY: ENCOUNTER FOR SCREENING FOR OTHER VIRAL DISEASES COMPARISON: 07/27/2019 EXAM PARAMETERS: NUMBER OF VIEWS: two views TECHNIQUE: Digital Frontal and Lateral radiographic views of the chest acquired. RADIATION DOSE: NA LIMITATIONS: none FINDINGS: LUNGS AND PLEURA: Small right pleural effusion. Minimal left pleural effusion. MEDIASTINUM AND HILAR STRUCTURES: No masses or contour abnormalities. HEART AND VASCULAR STRUCTURES: Cardiomegaly. No gary pulmonary edema. BONES: No acute findings. HARDWARE: None in the chest. OTHER: No other significant finding. IMPRESSION: Cardiomegaly without pulmonary edema. Small pleural effusions. TECHNICAL DOCUMENTATION: JOB ID: [id number] [employer]- All Rights Reserved Reading location - IP/workstation name: [email or web address]
[2019-08-06 11:37] LABS: HEPATITIS C VIRUS AB <0.1 s/co ratio (0.0-0.9)
[2019-08-06 13:21] LABS: HEPATITS B SURFACE ANTIGEN Negative (Negative)
== END ==
LOC: OD 16:40
PROVIDERS: ATTEND Physician Assistant Medical
DX: N18.6 End stage renal disease (principal); I51.7 Cardiomegaly; J90 Pleural effusion, not elsewhere classified; Z11.59 Encounter for screening for other viral diseases
CPT/HCPCS: 36415; 71046; 86317; 86803; 86804; 87340

== ENCOUNTER → 2019-08-11 | Outpatient (CLI) | payer MEDICARE, BC, OTHER ==
[2019-08-13 07:37] LABS: HEPATITIS B CORE AB TOT Negative (Negative)
== END ==
LOC: OD 15:19
PROVIDERS: ATTEND Physician Assistant Medical
DX: Z11.59 Encounter for screening for other viral diseases (principal)
CPT/HCPCS: 36415; 86704; 86705

== ENCOUNTER → 2019-10-13 | Outpatient (CLI) | payer MEDICARE, BC, OTHER | LOC: RAD 10:34 | PROVIDERS: ATTEND Internal Medicine | DX: R06.09 Other forms of dyspnea (principal) ==

== ENCOUNTER → 2019-12-03 | Outpatient (CLI) | payer MEDICARE, BC, OTHER ==
[2019-12-03 14:11] LABS: INTERNATIONAL RATION (INR) 3.28; PROTHROMBIN TIME 34.1 SEC (11.4-15.4)
== END ==
LOC: OD 13:15
DX: J18.9 Pneumonia, unspecified organism (principal); I48.0 Paroxysmal atrial fibrillation
CPT/HCPCS: 36415; 85610

== ENCOUNTER → 2020-04-07 | Outpatient (CLI) | payer MEDICARE, BC, OTHER ==
[2020-04-07 13:09] LABS: INTERNATIONAL RATION (INR) 2.36; PROTHROMBIN TIME 26.2 SEC (11.4-15.4)
== END ==
LOC: OD 12:11
PROVIDERS: ATTEND Internal Medicine
DX: I48.91 Unspecified atrial fibrillation (principal); Z79.01 Long term (current) use of anticoagulants
CPT/HCPCS: 36415; 85610

== ENCOUNTER 2020-09-03 08:18 | Emergency (ER) | payer MEDICARE, BC, OTHER ==
--- NOTE | 2020-09-03 08:36 | ER Document Report ---
ED General - General Stated Complaint: MEMORY PROBLEM Time Seen by Provider: 09/03/20 08:34 Primary Care Provider: PAVEL ARTEAGA NP [Primary Care Provider] - Follow up as needed Mode of Arrival: Ambulatory Information source: Patient Notes: This 70-year-old male presents to the emergency department with a history of memory difficulty this morning apparently was unable to recall the name of the president and seemed to be acutely altered. He has had a history of TIA in the past, last known well was 11 PM last night. He denies weakness, speech difficulties, or visual changes. Intake as a possible CVA, he is sent straight to CT. patient has a past medical history of atrial fibrillation, congestive heart failure, renal failure with dialysis. Hypertension, hypercholesterolemia and TIA. TRAVEL OUTSIDE OF THE [place] IN LAST 30 DAYS: No - Related Data Allergies/Adverse Reactions: strawberry [[place]] Allergy (Verified 09/03/20 08:57) Past Medical History - Social History Smoking Status: Unknown if Ever Smoked Family History: CAD, Other - Alcoholism - Past Medical History Cardiac Medical History: Reports: Hx Congestive Heart Failure, Hx Coronary Artery Disease, Hx Heart Attack - 1991, Hx Hypercholesterolemia, Hx Hypertension, Hx Peripheral Vascular Disease - bilateral carotid endarterectomy. Pulmonary Medical History: Reports: Hx COPD - on 3L oxygen as needed., Hx Sleep Apnea - on CPAP and 4 L home oxygen. Neurological Medical History: Denies: Hx Migraine Endocrine Medical History: Reports: Hx Diabetes Mellitus Type 2 - diet controlled. Renal/ Medical History: Reports: Hx End Stage Renal Disease - stage 5. Denies: Hx Peritoneal Dialysis GI Medical History: Reports: Hx Diverticulitis Musculoskeletal Medical History: Reports Hx Gout Psychiatric Medical History: Denies: Hx Depression Past Surgical History: Reports: Hx Cardiac Catheterization - 1991 AND 2001, Hx Orthopedic Surgery - left 5th toe amputation due to infection, left knee arthrosclopy, Hx Vascular Surgery - B/L carotid endarterectomy., Other - right eye stent placed (since glaucoma), vasectomy - Immunizations Hx Diphtheria, Pertussis, Tetanus Vaccination: Yes Hx Pneumococcal Vaccination: 09/24/16 Review of Systems - Review of Systems Notes: Constitutional: Negative for fever. HENT: Negative for sore throat. Eyes: Negative for visual changes. Cardiovascular: Negative for chest pain. Respiratory: Negative for shortness of breath. Gastrointestinal: Negative for abdominal pain, vomiting or diarrhea. Genitourinary: Negative for dysuria. Musculoskeletal: Negative for back pain. Skin: Negative for rash. Neurological: + Memory difficulties 10 point ROS negative except as marked above and in HPI. Physical Exam - Vital signs Vitals: Resp 22 H 09/03/20 08:33 - Notes Notes: PHYSICAL EXAMINATION: Physical Exam: General: Well-nourished well-developed in no acute distress HEENT: NC/AT, pupils equal round and reactive to light, MM moist,nares clear, oropharynx clear, airway patent Neck: supple, no adenopathy, no masses. Good range of motion Lungs: Good air movement, clear, no wheezes rales or rhonchi CVS: Irregularly irregular rate and rhythm no murmur gallop or rub Abdomen: Soft, active, nontender, no masses, no hepatosplenomegaly Ext: No edema, clubbing or cyanosis. Neuro: Alert and responsive, moving all 4 extremities on command, cranial nerves intact, no focal findings, patient now recalls his address, location, self. T hector and situation. ( who is in the room states that his memory seems to have improved significantly.) Skin: Intact no open lesions, no rash Course - Re-evaluation Re-evalutation: 09/03/20 12:06 Patient been scheduled for MRI, however he has a pacemaker. The radiation technician refuses to perform the MRI stating that we have never done MRIs here on patient with pacemakers and it is the hospital policy/radiology policy that they do not perform MRIs on patients with pacemaker. I have checked with the [facility] brood station manager, PHONG Grant who has contacted the legal nurse consultant of the device and verifies that the device is MRI compatible. Device type [employer] [place] XPBR MRI, serial number [id number]. I have contacted the radiologist on-call and explained to him the need for MRI, he states that he will contact the tool rental technician. 09/03/20 15:06 The MRI could not be performed since the policy is that we do not scan patients with pacemakers. I have explained to the patient and his that an MRI cannot be done at this facility. They are being discharged home since his symptoms have improved and they will follow-up with his primary provider to planning MRI and outpatient with [facility] radiology services. - Vital Signs Vital signs: Temp Pulse Resp BP Pulse Ox 98.5 F 74 20 149/56 H 99 09/03/20 08:55 09/03/20 15:42 09/03/20 15:42 09/03/20 15:42 09/03/20 15:42 - Laboratory Result Diagrams: 09/03/20 08:40 09/03/20 08:40 Laboratory results interpreted by me: 09/03/20 09/03/20 09/03/20 08:40 08:40 09:30 RBC 3.51 L Hgb 12.4 L Hct 36.9 L MCV 105 H MCH 35.4 H RDW 15.1 H Lymph % (Auto) 12.2 L PT 16.4 H APTT 41.0 H Chloride 96 L Carbon Dioxide 33 H BUN 37 H Creatinine 6.18 H Est GFR ( Amer) 11 L Est GFR (MDRD) Non-Af 9 L Direct Bilirubin 0.6 H Creatine Kinase 22 L I have reviewed laboratory data and used this information for the treatment decisions regarding the patient. - Diagnostic Test Radiology reviewed: Image reviewed, Reports reviewed Radiology results interpreted by me: 09/03/20 09:08 CT head noncontrast: No acute intracranial findings, no signs of acute stroke, atrophy, microvascular disease apparent. - EKG Interpretation by Me Rhythm: Other - EKG interpreted by Dr. Long: AV dual chamber paced complexes with some inhibition. Rate 89. Compared to previous EKG dated 07/27/2019 sinus rhythm with PACs has been replaced by pacemaker rhythm. Discharge - Discharge Clinical Impression: Transient memory loss, End stage renal disease on dialysis, Obstructive sleep apnea TIA (transient ischemic attack) Qualifiers: Transient cerebral ischemia type: unspecified Qualified Code(s): G45.9 - Transient cerebral ischemic attack, unspecified Condition: Good Disposition: HOME, SELF-CARE Instructions: Transient Ischemic Attack ([facility]) Additional Instructions: You were seen in the emergency department today with a transient episode of memory loss primarily associated with waking up in the morning. It is not exactly clear why this occurred, the CT scan and lab work were not diagnostic for stroke or new electrolyte changes. Because of the pacemaker, an MRI cannot be performed at this hospital today. If you continue to have symptoms or if there are other concerns you may return to the hospital for further evaluation and treatment. HOME CARE INSTRUCTIONS & INFORMATION: Thank you for choosing us for your medical needs. We hope you're satisfied with the care you received. After you leave, you must properly care for your problem and, at the same time, observe its progress. Any condition can change. Some illnesses can change rapidly over hours or days. If your condition worsens, return to the Emergency Department or see your physician promptly. ABOUT YOUR X-RAYS AND EKG'S: If you had an EKG or X-rays taken, they have been read by the Emergency Physician. The X-rays and EKG's will also be read by a Radiologist or Retail Planner within 24 hours. If discrepancies are noted, you will be notified by telephone. Please be certain the ED has a correct telephone number & address where you can be reached. Also, realize that some fractures or abnormalities do not show up on initial X-rays. If your symptoms continue, see your physician. ABOUT YOUR LABORATORY TEST: If you had laboratory tests, the results have been reviewed by the Emergency Physician. Some test results (for example cultures) may not be available for several days. You will be contacted if any test result shows you need additional treatment. Please be certain the ED has a correct telephone number and address where you can be reached. ABOUT YOUR MEDICATIONS: You will receive instructions on how to take your medicine on the prescription label you receive. Additional information may be provided by the Pharmacy. If you have questions afterwards, call the ED for clarification or further instructions. Some prescribed medications may cause drowsiness. Do not perform tasks such as driving a car or operating machinery without consulting your Pharmacist. If you feel you need a refill of pain medi cation, your condition will need re-evaluation. Please do not call for a refill of any medication. ABOUT YOUR SIGNATURE: Signature of this document acknowledges to followin. Understanding that you received emergency treatment and that you may be released before al medical problems are known or treated. Please be certain the ED has a correct phone number & address where you can be reached. 2. Acknowledgement that you will arrange for follow-up care as recommended. 3. Authorization for the Emergency Physician to provide information to your follow-up Physician in order to maximize your care. AT ANY TIME, IF YOUR SYMPTOMS CHANGE SIGNIFICANTLY OR WORSEN OR YOU DEVELOP NEW SYMPTOMS, RETURN TO THE EMERGENCY DEPARTMENT IMMEDIATELY FOR RE-EVALUATION. OUR GOAL IS TO PROVIDE EXCELLENT MEDICAL CARE! WE HOPE THAT WE HAVE MET YOUR EXPECTATIONS DURING YOUR EMERGENCY DEPARTMENT VISIT AND THAT YOU FEEL YOU HAVE RECEIVED EXCELLENT CARE! Referrals: PAVEL ARTEAGA NP [Primary Care Provider] - Follow up as needed
--- NOTE | 2020-09-03 08:48 | RADIOLOGY REPORT (SQ) ---
EXAM DESCRIPTION: CT HEAD WITHOUT IMAGES COMPLETED DATE/TIME: 09/03/2020 8:35 am REASON FOR STUDY: stroke-like symptoms COMPARISON: 03/12/2018 TECHNIQUE: Axial images acquired through the brain without intravenous contrast. Images reviewed wi th bone, brain and subdural windows. Additional sagittal and coronal reconstructions were generated. Images stored on PACS. All CT scanners at this facility use dose modulation, iterative reconstruction, and/or weight based d osing when appropriate to reduce radiation dose to as low as reasonably achievable (ALARA). [facility]: Dose Right [facility]: CareDose [facility]: Dose Right [facility]: Teradose 4D [facility]: Smart Q Interactive RADIATION DOSE: CT Rad equipment meets quality standard of care and radiation dose reduction techniq ues were employed. CTDIvol: 53.2 mGy. DLP: 964 mGy-cm.mGy. LIMITATIONS: None. FINDINGS: VENTRICLES: Prominent. CEREBRUM: No masses. No hemorrhage. No midline shift. Areas of low density in the white matter mos t likely due to chronic micro-vascular ischemic change. No evidence for acute infarction. CEREBELLUM: No masses. No hemorrhage. No alteration of density. No evidence for acute infarction. EXTRAAXIAL SPACES: Age-related involutional change. No fluid collections. No masses. ORBITS AND GLOBE: No intra- or extraconal masses. Normal contour of globe without masses. CALVARIUM: No fracture. PARANASAL SINUSES: No fluid or mucosal thickening. SOFT TISSUES: No mass or hematoma. OTHER: No other significant finding. IMPRESSION: CHRONIC CHANGES OF ATROPHY AND MICROVASCULAR ISCHEMIA. NO ACUTE PROCESS. EVIDENCE OF ACUTE STROKE: NO. COMMENT: The findings were sent to the Radiology Results Communication Center at 08:42 on 0 to be communicated to a licensed caregiver. TECHNICAL DOCUMENTATION: JOB ID: [id number] Quality ID # [id number]: Final reports with documentation of one or more dose reduction techniques (e.g., Au tomated exposure control, adjustment of the mA and/or kV according to patient size, use of iterative reconstruction technique) 2010 [employer]- All Rights Reserved Reading location - IP/workstation name: [email or web address]
[2020-09-03 08:55] LABS: ABSOLUTE BASOPHILS # (AUTO) 0.1 10^3/uL (0.0-0.2); ABSOLUTE EOSINOPHILS # (AUTO) 0.2 10^3/uL (0.0-0.6); ABSOLUTE LYMPHOCYTES (AUTO) 0.8 10^3/uL (0.5-4.7); ABSOLUTE MONOCYTES (AUTO) 0.6 10^3/uL (0.1-1.4); ABSOLUTE NEUT (AUTO) 4.6 10^3/uL (1.7-8.2); EOSINOPHILS % (AUTO) 3.2 % (0-6); HEMATOCRIT 36.9 % (37.9-51.0); HEMOGLOBIN 12.4 g/dL (13.5-17.0); LYMPHOCYTES % (AUTO) 12.2 % (13-45); MEAN CORPUSCULAR HEMOGLOBIN 35.4 pg (27.0-33.4); MEAN CORPUSCULAR HGB CONC 33.6 g/dL (32.0-36.0); MEAN CORPUSCULAR VOLUME 105 fl (80-97); MONOCYTES % (AUTO) 9.2 % (3-13); PLATELET COUNT 215 10^3/uL (150-450); RED BLOOD COUNT 3.51 10^6/uL (4.35-5.55); RED CELL DISTRIBUTION WIDTH 15.1 % (11.5-14.0); SEGMENTED NEUTROPHILS % (AUTO) 74.4 % (42-78); TOTAL CELLS COUNTED % (AUTO) 100 %; WHITE BLOOD COUNT 6.2 10^3/uL (4.0-10.5)
[2020-09-03 09:08] LABS: ALBUMIN 4.3 g/dL (3.5-5.0); ALKALINE PHOSPHATASE 96 U/L (38-126); ANION GAP 9 (5-19); ASPARTATE AMINO TRANSFERASE 38 U/L (17-59); BILIRUBIN,DIRECT 0.6 mg/dL (0.0-0.4); BILIRUBIN,TOTAL 0.7 mg/dL (0.2-1.3); BLOOD UREA NITROGEN 37 mg/dL (7-20); CARBON DIOXIDE 33 mmol/L (22-30); CHLORIDE 96 mmol/L (98-107); CREATINE KINASE 22 U/L (55-170); GLUCOSE 97 mg/dL (75-110); POTASSIUM 4.2 mmol/L (3.6-5.0); TOTAL PROTEIN 8.1 g/dL (6.3-8.2)
--- NOTE | 2020-09-03 09:10 | EKG REPORT ---
SEVERITY:- ABNORMAL ECG - A-V DUAL-PACED COMPLEXES W/ SOME INHIBITION : Confirmed by: Erika Tello MD 03-Sep-2020 09:09:55
[2020-09-03 09:20] LABS: CREATINE KINASE MB 0.5 ng/mL (<4.55); TROPONIN I 0.029 ng/mL
--- NOTE | 2020-09-03 09:24 | RADIOLOGY REPORT (SQ) ---
EXAM DESCRIPTION: CHEST SINGLE VIEW IMAGES COMPLETED DATE/TIME: 09/03/2020 8:32 am REASON FOR STUDY: stroke-like symptoms COMPARISON: 08/04/2019 NUMBER OF VIEWS: One view. TECHNIQUE: Single frontal radiographic image of the chest acquired. LIMITATIONS: None. FINDINGS: LUNGS AND PLEURA: Chronic small pleural effusions, right greater than left. No infiltrate . MEDIASTINUM AND HILAR STRUCTURES: Stable heart size and mediastinal structures. HEART AND VASCULAR STRUCTURES: Stable appearance. SUPPORT DEVICES: Appropriate location without change. BONES: No acute findings. OTHER: No other significant finding. IMPRESSION: Chronic small pleural effusions. TECHNICAL DOCUMENTATION: JOB ID: [id number] 2010 [employer]- All Rights Reserved Reading location - IP/workstation name: [email or web address]
[2020-09-03 09:47] LABS: PROTHROMBIN TIME 16.4 SEC (11.4-15.4)
[2020-09-03] MEDS ORDERED: APIXABAN 2.5 MG TABLET PO ONE (11:43)
[2020-09-03 15:43] VITALS: BP 149/56
== END 2020-09-03 15:40 | disposition home or self-care (01) ==
LOC: ER 08:18
DX: G45.9 Transient cerebral ischemic attack, unspecified (principal); R41.3 Other amnesia; I12.0 Hypertensive chronic kidney disease with stage 5 chronic kidney disease or end stage renal disease; E11.22 Type 2 diabetes mellitus with diabetic chronic kidney disease; N18.6 End stage renal disease; Z99.2 Dependence on renal dialysis; J44.9 Chronic obstructive pulmonary disease, unspecified; G47.33 Obstructive sleep apnea (adult) (pediatric); E11.51 Type 2 diabetes mellitus with diabetic peripheral angiopathy without gangrene; I25.10 Atherosclerotic heart disease of native coronary artery without angina pectoris; I25.2 Old myocardial infarction; Z95.0 Presence of cardiac pacemaker; Z91.018 Allergy to other foods
CPT/HCPCS: 93005; 99285; 36415; 82553; 82550; 85025; 85610; 85730; 80053; 84484; 71045; 70450; 93010; A9270

== ENCOUNTER 2020-12-04 06:35 | Emergency (ER) | payer MEDICARE, BC, OTHER ==
--- NOTE | 2020-12-04 07:09 | RADIOLOGY REPORT (SQ) ---
CT of the head: 12/04/2020 6:07 AM INSURANCE LEGAL ASSISTANT HISTORY: 70-year-old patient with concern for stroke. COMPARISON: CT the head from 09/03/2020 TECHNIQUE: Multiple axial contiguous images were obtained through the head without intravenous contrast administered. This exam was performed according to our departmental dose-optimization program, which includes automated exposure control, adjustment of the mA and/or KV according to the patient's size and/or use of iterative reconstruction technique. FINDINGS: The ventricles and cerebral sulci demonstrate mild prominence, consistent with cerebral atrophy. There are moderate periventricular hypodensities, suggestive of periventricular white matter changes. The shah-white matter differentiation is within normal limits. Both globes appear symmetric. The mastoid air cells appear clear. No hyperdense vascular sign is readily apparent. The visualized paranasal sinuses appear clear. The calvarium is intact. No extra-axial fluid collection is seen. No midline shift or mass effect is apparent. There are no findings to suggest acute intracranial hemorrhage. IMPRESSION: 1. No acute intracranial hemorrhage is seen. 2. Mild to moderate cerebral atrophy and periventricular white matter changes are seen. If there is persistent clinical concern for a neurologic deficit, consider MRI brain with diffusion-weighted sequences for further evaluation.
[2020-12-04 07:18] LABS: ABSOLUTE EOSINOPHILS # (AUTO) 0.2 10^3/uL (0.0-0.6); ABSOLUTE LYMPHOCYTES (AUTO) 0.6 10^3/uL (0.5-4.7); ABSOLUTE MONOCYTES (AUTO) 0.3 10^3/uL (0.1-1.4); ABSOLUTE NEUT (AUTO) 6.8 10^3/uL (1.7-8.2); BASOPHILS % (AUTO) 0.1 % (0-2); HEMATOCRIT 34.6 % (37.9-51.0); HEMOGLOBIN 11.8 g/dL (13.5-17.0); LYMPHOCYTES % (AUTO) 7.3 % (13-45); MEAN CORPUSCULAR HEMOGLOBIN 36.5 pg (27.0-33.4); MEAN CORPUSCULAR VOLUME 108 fl (80-97); MONOCYTES % (AUTO) 4.1 % (3-13); PLATELET COUNT 269 10^3/uL (150-450); RED BLOOD COUNT 3.22 10^6/uL (4.35-5.55); RED CELL DISTRIBUTION WIDTH 15.9 % (11.5-14.0); SEGMENTED NEUTROPHILS % (AUTO) 86.5 % (42-78); TOTAL CELLS COUNTED % (AUTO) 100 %; WHITE BLOOD COUNT 7.8 10^3/uL (4.0-10.5)
--- NOTE | 2020-12-04 07:21 | ER Document Report ---
ED Dizziness/Weakness - General Chief Complaint: Altered Mental Status Stated Complaint: MEMORY LOSS, POSSIBLE STROKE Primary Care Provider: PAVEL ARTEAGA NP [Primary Care Provider] - Follow up as needed Mode of Arrival: Stretcher Information source: Patient Notes: MY NOTES 70-year-old male arrives with chief complaint of having acute total global amnesia. In the past patient has had TIAs according to his . Patient was in CT room when I evaluated patient. He advises he is much improved than when earlier this morning he was driving to [facility] for dialysis. He became disoriented and was all from [facility] and not at [facility]. Patient sees Dr. Henao as his head start coordinator. By time of our evaluation at 0 645 patient was much improved. He has full range of motion and sensorium. He knows who he is and where he is at and date. After his CT results were presented by radiologist and marine engineering technicians. I discussed the results with both patient and . She advises that both she and he have had Covid already. Patient had his and first September and was admitted to [facility] and had hers prior to that. They still keep their hands clean and avoid sick people's because they were advised they can get Covid on a second time as well. TRAVEL OUTSIDE OF THE [place] IN LAST 30 DAYS: No - HPI Patient complains to provider of: Altered mental status Onset: Just prior to arrival Onset/Duration: Sudden Quality of pain: No pain Severity: Mild Associated symptoms: Confused. denies: Chest pain, Diarrhea, Dizzy, Ear pain, Almost fainted, Fainted, Headache, Loss of motor function, Loss of sensation, Paralysis, Ringing/roaring in ear, Short of breath, Sleeping more, Sweating, Vertigo, Vomiting, Weak all over - Related Data Allergies/Adverse Reactions: strawberry [[place]] Allergy (Verified 09/03/20 08:57) Past Medical History - General Information source: Patient - Social History Smoking Status: Never Smoker Cigarette use (# per day): No Chew tobacco use (# tins/day): No Smoking Education Provided: No Frequency of alcohol use: None Drug Abuse: None Lives with: Family Family History: Reviewed & Not Pertinent, CAD, Other - Alcoholism Patient has suicidal ideation: No Patient has homicidal ideation: No - Past Medical History Cardiac Medical History: Reports: Hx Congestive Heart Failure, Hx Coronary Artery Disease, Hx Heart Attack - 1991, Hx Hypercholesterolemia, Hx Hypertension, Hx Peripheral Vascular Disease - bilateral carotid endarterectomy. Pulmonary Medical History: Reports: Hx COPD - on 3L oxygen as needed., Hx Sleep Apnea - on CPAP and 4 L home oxygen. Neurological Medical History: Denies: Hx Migraine Endocrine Medical History: Reports: Hx Diabetes Mellitus Type 2 - diet controlled. Renal/ Medical History: Reports: Hx End Stage Renal Disease - stage 5. Denies: Hx Peritoneal Dialysis GI Medical History: Reports: Hx Diverticulitis Musculoskeletal Medical History: Reports Hx Gout Psychiatric Medical History: Denies: Hx Depression Past Surgical History: Reports: Hx Cardiac Catheterization - 1991 AND 2001, Hx Orthopedic Surgery - left 5th toe amputation due to infection, left knee arthrosclopy, Hx Vascular Surgery - B/L carotid endarterectomy., Other - right eye stent placed (since glaucoma), vasectomy - Immunizations Hx Diphtheria, Pertussis, Tetanus Vaccination: Yes Hx Pneumococcal Vaccination: 09/24/16 Review of Systems - Review of Systems Constitutional: No symptoms reported EENT: No symptoms reported Cardiovascular: No symptoms reported Respiratory: No symptoms reported Gastrointestinal: No symptoms reported Genitourinary: No symptoms reported Male Genitourinary: No symptoms reported Musculoskeletal: No symptoms reported Skin: No symptoms reported Hematologic/Lymphatic: No symptoms reported Neurological/Psychological: See HPI, Confusion, Weakness. denies: Dementia, Depression, Anxiety, Hallucinations, Sensory change, Homicidal ideation, Gait changes, Loss of power, Paralysis, Seizure, Lost consciousness, Headaches, Spe ech impairment, Numbness, Suicidal ideation, Tingling, Tremor Physical Exam - Vital signs Vitals: Pulse Resp BP Pulse Ox 84 25 H 136/51 H 97 12/04/20 07:00 12/04/20 07:00 12/04/20 07:00 12/04/20 07:00 Interpretation: Normal - General General appearance: Appears well, Alert - HEENT Head: Normocephalic, Atraumatic Eyes: Normal Pupils: PERRL - Respiratory Respiratory status: No respiratory distress Chest status: Nontender Breath sounds: Normal Chest palpation: Normal - Cardiovascular Rhythm: Regular Heart sounds: Normal auscultation Murmur: No - Abdominal Inspection: Normal Distension: No distension Bowel sounds: Normal Tenderness: Nontender Organomegaly: No organomegaly - Rectal Prostate: Other - Deferred - Genitourinary Scrotum: Other - Deferred - Back Back: Normal, Nontender - Extremities General upper extremity: Normal inspection, Nontender, Normal color, Normal ROM, Normal temperature General lower extremity: Normal inspection, Nontender, Normal color, Normal ROM, Normal temperature, Normal weight bearing. No: Donna's sign - Neurological Neuro grossly intact: Yes Cognition: Normal Orientation: AAOx4 Nisreen Coma Scale Eye Opening: Spontaneous Nisreen Coma Scale Verbal: Oriented Franklin Coma Scale Motor: Obeys Commands Franklin Coma Scale Total: 15 Speech: Normal Motor strength normal: LUE, RUE, LLE, RLE Sensory: Normal - Psychological Associated symptoms: Normal affect, Normal mood - Skin Skin Temperature: Warm Skin Moisture: Dry Skin Color: Normal Course - Vital Signs Vital signs: Temp Pulse Resp BP Pulse Ox 84 19 136/51 H 98 12/04/20 07:00 12/04/20 07:02 12/04/20 07:02 12/04/20 07:08 - Laboratory Results Result Diagrams: 12/04/20 07:05 12/04/20 09:30 Laboratory Results Interpreted: 12/04/20 12/04/20 07:05 09:30 RBC 3.22 L Hgb 11.8 L Hct 34.6 L MCV 108 H MCH 36.5 H RDW 15.9 H Lymph % (Auto) 7.3 L Seg Neutrophils % 86.5 H Sodium 133.4 L Potassium 5.2 H Chloride 93 L Carbon Dioxide 33 H BUN 62 H Creatinine 8.79 H Est GFR ( Amer) 7 L Est GFR (MDRD) Non-Af 6 L Creatine Kinase 20 L Critical Laboratory Results Reviewed: Yes Attending or Supervising Physician who Reviewed Labs: JESS WROTHY JR - Radiology Results Critical Radiology Results Reviewed: Yes Attending or Supervising Physician who Reviewed Radiology: JESS WORTHY JR Critical Care Note - Critical Care Note Comments: I spoke with Dr. Henao about potassium issue and he advises Kayexalate. He also was hoping the patient was on aspirin Plavix and I asked about this and reports 6 months ago the patient was changed at Dr. Henao's insistence to Leila. Patient been doing well since then. Also I spoke with Dr. Hu at [facility] neurology approximately 1100 hrs. and he advises echo of carotids or CTA of head and neck. A reading of the CTA of head and neck revealed external carotid stenosis right pleural effusion right lower lobe abrupt truncation of the P1 segment of left STATE ATTORNEY and I called back Dr. Hu and he advises continuing on the Eliquis. He advises probably stenotic area here. Discharge - Discharge Clinical Impression: TGA (transient global amnesia), ESRD (end stage renal disease) on dialysis, Hyperkalemia, CTA findings of L STATE ATTORNEY P1 segment, CTA neck R pleural effusion , CTA neck with ext carotid stenosis TIA (transient ischemic attack) Qualifiers: Transient cerebral ischemia type: unspecified Qualified Code(s): G45.9 - Hookre sient cerebral ischemic attack, unspecified Disposition: HOME, SELF-CARE Additional Instructions: Follow-up with personal doctor and get your dialysis this morning. Return to ER as needed take medicines as directed encourage fluids. Make sure you wash your hands and wear a mask to avoid Covid Referrals: PAVEL ARTEAGA NP [Primary Care Provider] - Follow up as needed
[2020-12-04 07:22] LABS: INTERNATIONAL RATION (INR) 1.04; PARTIAL THROMBOPLASTIN TIME 26.1 SEC (23.5-35.8)
[2020-12-04 07:26] LABS: PROTHROMBIN TIME 13.8 SEC (11.4-15.4)
--- NOTE | 2020-12-04 07:27 | RADIOLOGY REPORT (SQ) ---
EXAM DESCRIPTION: X-ray single view chest. CLINICAL HISTORY: 70 years Male, CVA COMPARISON: 09/03/2020 and 08/04/2019 TECHNIQUE: Single portable x-ray view of the chest performed on 12/04/2020 at 6:53 AM FINDINGS: The lungs are well-expanded. There is increasing volume loss in the right inferior hemithorax when compared to the prior studies likely due to a small effusion and probable right basilar atelectasis. There is trace blunting of the left lateral costophrenic sulcus which may reflect a small left pleural effusion as well. There is no evidence of a pneumothorax. The cardiac silhouette is stable and is prominent. There is a right subclavian bipolar pacemaker which appears grossly stable. The mediastinal contours are normal. No acute osseous abnormality is identified. There are degenerative changes of the thoracic spine. No acute soft tissue abnormalities are seen. Lines and tubes: None. IMPRESSION: 1. Volume loss in the right inferior hemithorax likely due to a small pleural effusion and atelectasis. 2. Trace blunting of the left lateral costophrenic sulcus likely due to a small pleural effusion as well and/or atelectasis. 3. Stable right subclavian bipolar pacemaker.
[2020-12-04 10:05] LABS: ALBUMIN 3.5 g/dL (3.5-5.0); ALKALINE PHOSPHATASE 67 U/L (38-126); ANION GAP 7 (5-19); ASPARTATE AMINO TRANSFERASE 19 U/L (17-59); BILIRUBIN,DIRECT 0.4 mg/dL (0.0-0.4); BILIRUBIN,TOTAL 0.4 mg/dL (0.2-1.3); BLOOD UREA NITROGEN 62 mg/dL (7-20); CALCIUM 9.5 mg/dL (8.4-10.2); CARBON DIOXIDE 33 mmol/L (22-30); CHLORIDE 93 mmol/L (98-107); CREATINE KINASE 20 U/L (55-170); GLUCOSE 105 mg/dL (75-110); POTASSIUM 5.2 mmol/L (3.6-5.0); TOTAL PROTEIN 6.4 g/dL (6.3-8.2)
[2020-12-04 10:16] LABS: CREATINE KINASE MB 0.31 ng/mL (<4.55); TROPONIN I 0.013 ng/mL
[2020-12-04] MEDS ORDERED: SODIUM POLYSTYRENE SULFONATE 15 GM/60 ML PO ONE (10:36)
--- NOTE | 2020-12-04 13:53 | RADIOLOGY REPORT (SQ) ---
EXAM DESCRIPTION: CTA NECK IMAGES COMPLETED DATE/TIME: 12/04/2020 1:23 pm REASON FOR STUDY: cva COMPARISON: CT of the head without contrast from 12/04/2019. TECHNIQUE: Axial dynamic scanning technique with dynamic contrast enhancement through the extra-aircraft engine mechanic overhaul nial carotid and vertebral arteries. Multiplanar reconstruction. 3-D MIPS and Volume-rendered imag es acquired at the workstation and saved to PACS. Images are reviewed in soft tissue, bone, lung w indows. All CT scanners at this facility use dose modulation, iterative reconstruction, and/or weight based d osing when appropriate to reduce radiation dose to as low as reasonably achievable (ALARA). [facility]: Dose Right [facility]: CareDose [facility]: Dose Right [facility]: Teradose 4D [facility]: [employer] CONTRAST TYPE AND DOSE: 70 mL Omnipaque 350- low osmolar. RENAL FUNCTION: Creatinine 8.79 milligrams/deciliter. The patient has a history of end-stage renal disease and is on hemodialysis. LIMITATIONS: None. FINDINGS: AORTIC ARCH: There is a standard 3 vessel arch. There are eccentric calcified atheromatou s plaques at the origins of the brachiocephalic, left common carotid and left subclavian arteries amber t result in no high-grade stenosis. The proximal subclavian arteries are patent and without a high-g rade stenosis. There is no dissection of the aortic arch. RIGHT CAROTIDS: There are calcified and noncalcified eccentric atheromatous plaques throughout the ca rotid arteries. There is a focal high-grade stenosis of the origin of the external carotid artery (i mage 65 of series 3). The cervical segment of the internal carotid artery is patent and without a hi gh-grade stenosis. There is no carotid dissection or aneurysm. RIGHT VERTEBRAL: Patent. LEFT CAROTIDS: There are calcified and noncalcified eccentric atheromatous plaques throughout the car otid arteries. There is a focal high-grade stenosis of the origin of the external carotid artery (im age 64 of series 3). The cervical segment of the internal carotid artery is patent and without a hig h-grade stenosis. There is no carotid dissection or aneurysm. LEFT VERTEBRAL: Patent. OTHER: The thyroid gland is heterogeneous. There is a right subclavian vein approach transvenous pac emaker in place. There is a moderate to large right-sided pleural effusion that is partially loculat ed and is associated with areas of subsegmental atelectasis in the right lower lobe. There is no fra cture or acute malalignment of the cervical spine. OTHER: 3-D reconstructions confirm findings. IMPRESSION: 1. 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 2. No high-grade stenosis, dissection or aneurysm of the cervical segments of the internal carotid a rteries. 3. No high-grade stenosis, dissection or aneurysm of the vertebral arteries. 4. There is a moderate to large right-sided pleural effusion that is partially loculated and is asso ciated with areas of subsegmental atelectasis in the right lower lobe. COMMENT: Quality ID #[id number]: Measurements of distal internal carotid diameter were used as the denomina tor for stenosis measurement. TECHNICAL DOCUMENTATION: JOB ID: [id number] Quality ID # [id number]: Final reports with documentation of one or more dose reduction techniques (e.g., Au tomated exposure control, adjustment of the mA and/or kV according to patient size, use of iterative reconstruction technique) 2010 [employer]- All Rights Reserved Reading location - IP/workstation name: [email or web address]
--- NOTE | 2020-12-04 14:01 | RADIOLOGY REPORT (SQ) ---
EXAM DESCRIPTION: CTA HEAD IMAGES COMPLETED DATE/TIME: 12/04/2020 1:23 pm REASON FOR STUDY: cva COMPARISON: CT of the head without contrast from 12/04/2020. TECHNIQUE: Post IV contrast scanning, thin section axial imaging through the brain to evaluate the a rterial structures. Source and MIP images are saved and reviewed on PACS. Advanced 3D imaging as volume-rendering, MIPs, SSD performed? yes All CT scanners at this facility use dose modulation, iterative reconstruction, and/or weight based d osing when appropriate to reduce radiation dose to as low as reasonably achievable (ALARA). [facility]: Dose Right [facility]: CareDose [facility]: Dose Right [facility]: Teradose 4D [facility]: [employer] CONTRAST TYPE AND DOSE: Contrast/concentration: Isovue 350.00 mmol/ml; Total Contrast Delivered: 70. 0 ml; Total Saline Delivered: 75.0 ml RENAL FUNCTION: The patient has a history of end-stage renal disease and is on hemodialysis. LIMITATIONS: None. FINDINGS: [place] OF [place]: The intracranial segments of the internal carotid arteries are patent. The anterior communicating artery is also patent. The arborization pattern in the distribution of th e ACAs and MCAs is symmetric ; there is no high-grade stenosis, aneurysm or branch occlusion. POSTERIOR CIRCULATION: Abrupt truncation of the P1 segment of the left LEACHER. The basilar artery is pa tent. BRAIN: There is no pathologic intracranial enhancement. The dural venous sinuses and deep cerebral veins are patent. BONES: Intact. SINUSES: No air-fluid level or mucoperiosteal thickening. OTHER: No other finding. IMPRESSION: Abrupt truncation of the P1 segment of the left LEACHER - consider correlation with clinical findings to exclude an acute infarct. TECHNICAL DOCUMENTATION: JOB ID: [id number] Quality ID # [id number]: Final reports with documentation of one or more dose reduction techniques (e.g., Au tomated exposure control, adjustment of the mA and/or kV according to patient size, use of iterative reconstruction technique) 2010 [employer]- All Rights Reserved Reading location - IP/workstation name: [email or web address]
[2020-12-04 15:13] VITALS: BP 144/59
--- NOTE | 2020-12-04 18:14 | EKG REPORT ---
SEVERITY:- ABNORMAL ECG - ATRIAL FIBRILLATION LOW VOLTAGE IN FRONTAL LEADS : Confirmed by: Erika Tello MD 04-Dec-2020 18:13:39
== END 2020-12-04 15:13 | disposition home or self-care (01) ==
LOC: ER 06:35
DX: G45.9 Transient cerebral ischemic attack, unspecified (principal); R41.82 Altered mental status, unspecified; E87.5 Hyperkalemia; J90 Pleural effusion, not elsewhere classified; I65.29 Occlusion and stenosis of unspecified carotid artery; E11.22 Type 2 diabetes mellitus with diabetic chronic kidney disease; I13.2 Hypertensive heart and chronic kidney disease with heart failure and with stage 5 chronic kidney disease, or end stage renal disease; I50.9 Heart failure, unspecified; N18.6 End stage renal disease; Z79.01 Long term (current) use of anticoagulants
CPT/HCPCS: 93005; 99285; 36415; 82553; 82962; 82550; 85025; 85610; 85730; 80053; 84484; 71045; 70450; 70496; 70498; 93010; A9270